=== PATIENT | male | born 1950 | race African-American/Black ===

== ENCOUNTER 2020-02-21 05:16 | Outpatient (CLI) | payer MEDICARE, OTHER ==
[2020-02-21 14:03] LABS: Hemoglobin 11.3 g/dL (14.0-18.0); Mean Corpuscular Hemoglobin 30.2 pg (27.0-31.0); Mean Corpuscular Volume 91.7 fL (78.0-98.0); Platelet Count 136 thou/uL (130-400); RBC Distribution Width 11.8 % (11.5-14.5); Red Blood Cell (RBC) Count 3.74 mill/uL (4.70-6.10); White Blood Cell (WBC) Count 7.4 thou/uL (4.8-10.8)
[2020-02-21 14:11] LABS: Anion Gap 15 mmol/L (10-20); BUN (Urea Nitrogen) 49 mg/dL (8.4-25.7); Calc. Creatinine Clearance 0 mL/min (70-130); Calcium 8.8 mg/dL (7.8-10.44); Carbon Dioxide 31 mmol/L (23-31); Chloride 95 mmol/L (98-107); Estimated GFR-MDRD 6; Glucose 134 mg/dL (80-115); Potassium 4.4 mmol/L (3.5-5.1); Sodium 137 mmol/L (136-145)
[2020-02-21 14:18] LABS: INR-International Normal Ratio 1.1; PTT 32.3 sec (22.9-36.1); Prothrombin Time 13.7 sec (12.0-14.7)
[2020-02-22 14:40] LABS: SARS-CoV-2 MS2 Positive; SARS-CoV-2 N Gene Negative; SARS-CoV-2 S Gene Negative; SARS-CoV-2 by NAA Not Detected (NotDetected); SARS-CoV-2 orf1ab Negative
== END 2020-02-21 05:17 | disposition home or self-care (01) ==
LOC: LABBT 05:16
PROVIDERS: ATTEND Urology
DX: Z01.818 Encounter for other preprocedural examination (principal); Z11.59 Encounter for screening for other viral diseases; R33.9 Retention of urine, unspecified
CPT/HCPCS: 80048; 85027; 85610; 85730; U0003; 87635; 93005; 93010

== ENCOUNTER 2020-02-25 06:06 | Day surgery (SDC) | payer MEDICARE ==
[2020-02-19 14:39] VITALS: BMI 20.6
[2020-02-25] MEDS ORDERED: Bupivacaine 0.25% HCL 30 ML VIAL ONE (08:30)
[2020-02-25] MEDS ORDERED: Fentanyl 100 MCG/2 ML VIAL ONE (08:36)
[2020-02-25] MEDS ORDERED: Phenazopyridine HCl 97.5 MG TABLET ONE (09:27)
[2020-02-25] MEDS ORDERED: Oxybutynin 5 MG TAB ONE (09:28)
[2020-02-25] MEDS ORDERED: PROPOFOL 200 MG/20 ML VIAL ONE (11:17)
[2020-02-25] MEDS ORDERED: Lidocaine 1% PF 5 ML VIAL ONE (11:17)
[2020-02-25] MEDS ORDERED: Ondansetron PF 4 MG/2 ML Vial ONE (11:17)
[2020-02-25] MEDS ORDERED: Dexamethasone 20 MG/5 ML VIAL ONE (11:17)
--- NOTE | 2020-02-25 12:04 | OP ---
DATE OF PROCEDURE: 02/25/2020 PREOPERATIVE DIAGNOSIS: Urinary retention. POSTOPERATIVE DIAGNOSIS: Urinary retention. PROCEDURES PERFORMED: Cystoscopy and placement of suprapubic tube. ANESTHESIA: General. COMPLICATIONS: None. ESTIMATED BLOOD LOSS: 10 mL. SPECIMEN: None. DESCRIPTION OF PROCEDURE: After informed consent, the patient was taken to the operating room, transferred to the table on his own power. Anesthesia was established. A time-out was performed showing the correct patient, site, and procedure. Preoperative antibiotics were administered. He was prepped and draped in the lithotomy position. I began by performing cystoscopy, noting a normal course and caliber of the urethra. The prostate was examined noting no obstruction. The bladder was then entered noting no mucosal abnormalities. A spot 2 fingerbreadths above the pubic symphysis was selected and a spinal needle used to assure proper placement from that point into the anterior aspect of the bladder. This was done with direct visualization in the bladder via cystoscopy. The intervening tissue from the bladder to the surface of the skin was anesthetized with a total of 30 mL of 0.25% Marcaine without epinephrine. A small incision was made at that site and then the scope removed. The Lowsley retractor was then passed in, and tented up against the anterior surface of the bladder with a small incision made overlying the tip of the Lowsley, allowing it to pass into the operative field. An 18-[place] catheter was connected to the Lowsley and drawn back into the bladder. 10 mL were instilled in the balloon and the Lowsley retractor removed. Cystoscopy was again performed, noting good placement of the suprapubic tube. A 4-0 chromic was used to suture the skin around the catheter. I then placed a 2-0 silk suture to hold the catheter in place. The catheter was then connected to bag drainage. The patient was awoken from anesthesia, transferred back to his hospital bed, and taken to PACU in stable condition, where he will be discharged home upon recovery. Job ID: [id number]
== END 2020-02-25 11:43 | disposition home or self-care (01) ==
LOC: SDC 06:06
PROVIDERS: ATTEND Urology
PROC: 0T9B00Z Drainage of Bladder with Drainage Device, Open Approach (ICD-10-PCS; principal; 2020-02-25)
DX: R33.9 Retention of urine, unspecified (principal); N30.20 Other chronic cystitis without hematuria; I13.11 Hypertensive heart and chronic kidney disease without heart failure, with stage 5 chronic kidney disease, or end stage renal disease; E10.22 Type 1 diabetes mellitus with diabetic chronic kidney disease; N18.6 End stage renal disease; D63.1 Anemia in chronic kidney disease; E78.00 Pure hypercholesterolemia, unspecified; E78.5 Hyperlipidemia, unspecified; K59.00 Constipation, unspecified; Z79.82 Long term (current) use of aspirin; Z79.899 Other long term (current) drug therapy; Z99.2 Dependence on renal dialysis
CPT/HCPCS: 36416; J0690; J1100; J2405; J2704; J3010; S0020

== ENCOUNTER 2020-03-16 08:13 | Emergency (ER) | payer MEDICARE ==
--- NOTE | 2020-03-16 09:14 | CT ---
CT Abdomen Pelvis WO Con History: Abdominal pain. Constipation. Comparison: None. Findings: Lung bases are clear. No pericardial effusion. Extensive cholelithiasis with gallbladder distention. Partially calcified mass superior pole right kidney measures 2.7 cm. Multiple hypodensities throughou t both kidneys. Punctate nonobstructive bilateral renal calculi measuring up to 3 mm. Hypodensity material throughout the colon with mild distention. High density debris within the cecal apex. No free intraperitoneal gas or fluid. In situ suprapubic catheter. Large Schmorl's nodes of L3. No acute osseous abnormality. Impression: 1. Extensive cholelithiasis with marked gallbladder distention. No significant pericholecystic inflam mation. 2. High density debris throughout the colon which is moderately distended with extensive stool sugges ting chronic constipation. 3. Partially calcified mass superior pole right kidney highly concerning for malignancy. Dedicated re nal protocol CT just before dialysis may be beneficial. Urologic consultation advised. 4. Nonobstructing punctate bilateral renal calculi.
[2020-03-16 09:27] LABS: #Eosinphils 0.2 thou/uL (0.0-0.7); #Lymphocytes 0.8 thou/uL (1.20-3.40); #Monocytes 0.8 thou/uL (0.11-0.59); #Neutrophils 9.6 thou/uL (1.40-6.50); %Basophils 0.1 % (0.0-1.0); %Eosinophils 1.4 % (0.0-10.0); %Monocytes 7.4 % (0.0-10.0); %Neutrophils 84.1 % (42.0-75.0); Hemoglobin 9.4 g/dL (14.0-18.0); Mean Corpuscular HGB CONC 32.2 g/dL (32.0-36.0); Mean Corpuscular Hemoglobin 30.3 pg (27.0-31.0); Mean Corpuscular Volume 93.9 fL (78.0-98.0); Mean Platelet Volume 8.8 fL (7.4-10.4); Platelet Count 155 thou/uL (130-400); RBC Distribution Width 12.5 % (11.5-14.5); Red Blood Cell (RBC) Count 3.09 mill/uL (4.70-6.10); White Blood Cell (WBC) Count 11.4 thou/uL (4.8-10.8)
[2020-03-16 09:51] LABS: ALT (SGPT) 43 U/L (8-55); AST (SGOT) 27 U/L (5-34); Albumin 3.6 g/dL (3.4-4.8); Alkaline Phosphatase 238 U/L (40-110); Anion Gap 18 mmol/L (10-20); BUN (Urea Nitrogen) 64 mg/dL (8.4-25.7); Bilirubin, Total 0.5 mg/dL (0.2-1.2); Calc. Creatinine Clearance 0 mL/min (70-130); Calcium 8.8 mg/dL (7.8-10.44); Carbon Dioxide 31 mmol/L (23-31); Chloride 91 mmol/L (98-107); Estimated GFR-MDRD 6; Globulin 4.6 g/dL (2.4-3.5); Glucose 162 mg/dL (80-115); Potassium 5.1 mmol/L (3.5-5.1); Protein, Total 8.2 g/dL (5.8-8.1); Sodium 135 mmol/L (136-145)
[2020-03-16 09:58] LABS: Bilirubin Small (Negative); Blood, Urine Large (Negative); Glucose, Urine (Dipstick) Negative (Negative); Ketone, Urine Trace mg/dL (Negative); Leukocyte Moderate (Negative); Nitrite Positive (Negative); Protein, Urine (Dipstick) > or equal to 300 mg/dL (Neg-Trace); Specific Gravity, Urine 1.015 (1.005-1.030); Urobilinogen 0.2 mg/dL (Less than 2); pH, Urine 8.5 (5.0-9.0)
[2020-03-16 10:02] LABS: Clarity Turbid (Clear)
[2020-03-16 10:19] LABS: Bacteria/HPF 4+ HPF (None Seen); RBC/HPF Greater than 50 HPF (0-3)
== END 2020-03-16 11:45 | disposition home or self-care (01) ==
LOC: ERS 08:13
DX: N30.90 Cystitis, unspecified without hematuria (principal); K59.00 Constipation, unspecified; I25.2 Old myocardial infarction; E78.2 Mixed hyperlipidemia; I12.0 Hypertensive chronic kidney disease with stage 5 chronic kidney disease or end stage renal disease; E11.22 Type 2 diabetes mellitus with diabetic chronic kidney disease; N18.6 End stage renal disease; Z79.82 Long term (current) use of aspirin; Z79.899 Other long term (current) drug therapy
CPT/HCPCS: 74176; 80053; 81003; 81015; 83605; 85025; 87077; 87086; 87186

== ENCOUNTER 2020-05-13 05:28 | Emergency (ER) | payer MEDICARE ==
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
== END 2020-05-13 06:10 | disposition home or self-care (01) ==
LOC: ERS 05:28
DX: R07.89 Other chest pain (principal); E78.2 Mixed hyperlipidemia; I12.0 Hypertensive chronic kidney disease with stage 5 chronic kidney disease or end stage renal disease; E11.22 Type 2 diabetes mellitus with diabetic chronic kidney disease; N18.6 End stage renal disease; Z79.82 Long term (current) use of aspirin; Z79.899 Other long term (current) drug therapy; Z79.4 Long term (current) use of insulin; V89.2XXA Person injured in unspecified motor-vehicle accident, traffic, initial encounter
CPT/HCPCS: 71045; 93005; 94760

== ENCOUNTER 2020-12-22 09:40 | Outpatient (CLI) | payer MEDICARE | END 2020-12-22 09:41 | disposition home or self-care (01) | LOC: BICRAD 09:40 | PROVIDERS: ATTEND Internal Medicine | DX: M25.69 Stiffness of other specified joint, not elsewhere classified (principal); M47.814 Spondylosis without myelopathy or radiculopathy, thoracic region; M47.816 Spondylosis without myelopathy or radiculopathy, lumbar region | CPT/HCPCS: 72072; 72100 ==

== ENCOUNTER 2021-01-07 10:58 | Emergency (ER) | payer MEDICARE ==
[2021-01-07 11:59] LABS: #Basophils 0.1 thou/uL (0.0-0.2); #Eosinphils 0.1 thou/uL (0.0-0.7); #Lymphocytes 1.1 thou/uL (1.20-3.40); #Neutrophils 12.7 thou/uL (1.40-6.50); %Basophils 0.7 % (0.0-1.0); %Eosinophils 0.8 % (0.0-10.0); %Lymphocytes 7.4 % (21.0-51.0); %Monocytes 6.6 % (0.0-10.0); %Neutrophils 84.5 % (42.0-75.0); Hemoglobin 11.2 g/dL (14.0-18.0); Mean Corpuscular Hemoglobin 29.7 pg (27.0-31.0); Mean Corpuscular Volume 92.9 fL (78.0-98.0); Mean Platelet Volume 8.8 fL (7.4-10.4); Platelet Count 108 thou/uL (130-400); RBC Distribution Width 13.5 % (11.5-14.5); Red Blood Cell (RBC) Count 3.77 mill/uL (4.70-6.10)
[2021-01-07 12:15] LABS: ALT (SGPT) 26 U/L (8-55); AST (SGOT) 20 U/L (5-34); Albumin 3.4 g/dL (3.4-4.8); Alkaline Phosphatase 181 U/L (40-110); Anion Gap 16 mmol/L (10-20); BUN (Urea Nitrogen) 31 mg/dL (8.4-25.7); Bilirubin, Total 0.6 mg/dL (0.2-1.2); Calc. Creatinine Clearance 0 mL/min (70-130); Calcium 9.6 mg/dL (7.8-10.44); Carbon Dioxide 27 mmol/L (23-31); Chloride 95 mmol/L (98-107); Globulin 4.2 g/dL (2.4-3.5); Glucose 135 mg/dL (80-115); Lipase 10 U/L (8-78); Potassium 4.1 mmol/L (3.5-5.1); Protein, Total 7.6 g/dL (5.8-8.1); Sodium 134 mmol/L (136-145)
[2021-01-07 12:38] LABS: CKMB 1.4 ng/mL (0-6.6)
== END 2021-01-07 17:18 | disposition short-term general hospital (02) ==
LOC: ERS 10:58
DX: R53.1 Weakness (principal); R79.89 Other specified abnormal findings of blood chemistry; I25.2 Old myocardial infarction; E11.9 Type 2 diabetes mellitus without complications; E78.5 Hyperlipidemia, unspecified; I12.0 Hypertensive chronic kidney disease with stage 5 chronic kidney disease or end stage renal disease; N18.6 End stage renal disease; Z79.82 Long term (current) use of aspirin; Z79.899 Other long term (current) drug therapy; Z79.4 Long term (current) use of insulin
CPT/HCPCS: 36415; 71045; 80053; 82553; 83690; 83880; 84484; 85025; 93005

== ENCOUNTER 2021-07-07 11:19 | Inpatient (IN) | payer MEDICARE ==
[2021-07-07 12:01] LABS: Hemoglobin 8.7 g/dL (14.0-18.0); Mean Corpuscular Volume 90.7 fL (78.0-98.0); Mean Platelet Volume 8.2 fL (7.4-10.4); Platelet Count 270 thou/uL (130-400); RBC Distribution Width 13.5 % (11.5-14.5); White Blood Cell (WBC) Count 12.5 thou/uL (4.8-10.8)
[2021-07-07 12:08] LABS: INR-International Normal Ratio 1.2; PTT 34.7 sec (22.9-36.1); Prothrombin Time 15.3 sec (12.0-14.7)
[2021-07-07 12:18] LABS: ALT (SGPT) 61 U/L (8-55); AST (SGOT) 72 U/L (5-34); Albumin 2.5 g/dL (3.4-4.8); Alkaline Phosphatase 688 U/L (40-110); Anion Gap 19 mmol/L (10-20); BUN (Urea Nitrogen) 64 mg/dL (8.4-25.7); Calc. Creatinine Clearance 0 mL/min (70-130); Calcium 11.2 mg/dL (7.8-10.44); Carbon Dioxide 26 mmol/L (23-31); Chloride 93 mmol/L (98-107); Globulin 6.1 g/dL (2.4-3.5); Glucose 207 mg/dL (80-115); Magnesium 2.1 mg/dL (1.6-2.6); Protein, Total 8.6 g/dL (5.8-8.1); Sodium 133 mmol/L (136-145)
[2021-07-07 12:37] LABS: Band 13 % (5-11); Lymphocytes 2 % (21-51); MDiff Complete? YES; Monocytes 1 % (0-10); Neutrophil 83 % (42-75); Platelet Morphology Comment Appears Adequate; RBC Morphology Normal
[2021-07-07 12:41] LABS: CKMB 0.8 ng/mL (0-6.6)
[2021-07-07] MEDS ORDERED: Acetaminophen 325 MG Suppository ONE (12:44)
[2021-07-07] MEDS ORDERED: Acetaminophen 120 MG Suppository ONE (12:44)
[2021-07-07] MEDS ORDERED: Vancomycin 1 GM/200 ML BAG ONE (12:50)
[2021-07-07] MEDS ORDERED: Meropenem 1 GM in Sodium Chloride 0.9% 100 ML IVPB SCH ×2 (13:00→22:00)
[2021-07-07 13:28] LABS: Clarity Turbid (Clear)
[2021-07-07 13:29] LABS: Bilirubin Negative (Negative); Blood, Urine Large (Negative); Glucose, Urine (Dipstick) Negative (Negative); Ketone, Urine Negative (Negative); Leukocyte Moderate (Negative); Nitrite Negative (Negative); Protein, Urine (Dipstick) 300 mg/dL (Neg-Trace); Urobilinogen 0.2 mg/dL (Less than 2)
[2021-07-07 13:30] LABS: Bacteria/HPF 4+ HPF (None Seen); Squamous Epithelial 0-3 HPF (0-3); WBC/HPF 21-50 HPF (0-3)
[2021-07-07 14:03] LABS: SARS-CoV-2 NAA Rapid Test Not Detected (NotDetected)
[2021-07-07] MEDS ORDERED: MERREM IVPB PRN (14:32)
[2021-07-07] MEDS ORDERED: Dextrose 50% Abboject 50 ML SYRINGE SLOW IVP PRN (14:40)
[2021-07-07] MEDS ORDERED: Dextrose 5% in Water 1,000 ML IV PRN (14:40)
[2021-07-07] MEDS ORDERED: Aspirin 300 MG Suppository ONE (14:41)
[2021-07-07] MEDS ORDERED: Acetaminophen 325 MG TAB PO PRN (14:41)
[2021-07-07] MEDS ORDERED: Acetaminophen 650 MG Suppository PR PRN (14:41)
[2021-07-07] MEDS ORDERED: Ondansetron ODT 4 MG TAB PO PRN (14:41)
[2021-07-07] MEDS ORDERED: Ondansetron PF 4 MG/2 ML Vial IVP PRN (14:41)
[2021-07-07 14:49] LABS: HBSAg Index 0.22 S/CO (0-0.99); Hep B Surf Ag Non-Reactive S/CO (NonReactive)
[2021-07-07 14:52] LABS: Lactic Acid 1.8 mmol/L (0.5-2.2)
[2021-07-07] MEDS ORDERED: Heparin 5,000 UNITS/ML VIAL SC SCH (15:00)
[2021-07-07 15:03] LABS: HBSAB Concentration 19.62 mIU/mL; Hep B Surf AB Reactive (NonReactive)
[2021-07-07] MEDS ORDERED: Vancomycin HCl 500 MG in Sodium Chloride 0.9% 100 ML IVPB SCH ×2 (16:30)
[2021-07-07] MEDS ORDERED: Vancomycin HCl 1.25 GM in Sodium Chloride 0.9% 250 ML 250 ML IVPB SCH (16:30)
[2021-07-07] MEDS ORDERED: HOLD VANCOMYCIN FOR LEVEL >20 FS SCH (16:30)
[2021-07-07] MEDS ORDERED: Vancomycin 1 GM in Premix Bag 1 BAG IVPB SCH ×2 (16:30→21:00)
[2021-07-07] MEDS ORDERED: Vancomycin HCl 750 MG in Sodium Chloride 0.9% 250 ML 250 ML IVPB SCH (16:30)
[2021-07-07 16:44] LABS: Troponin I 0.104 ng/mL (< 0.028)
[2021-07-07 16:45] LABS: Acetaminophen Less than 6.0 mcg/mL (10.0-30.0); Alcohol Less than 10 mg/dL (Less than 10); Lipase 34 U/L (8-78); Salicylate Less than 8.0 mg/dL (15.0-30.0)
[2021-07-07] MEDS ORDERED: FLU VACC QS2021-22(65YR UP)/PF 240 MCG/0.7 ML SYRINGE IM ONE (16:45)
[2021-07-07 17:19] LABS: Actual Bicarbonate (HCO3a) 30.3 mEq/L (22-28); Base Excess (BEa) 6.7 mEq/L (-2.0 to +3.0); CO2 Tension 39.5 mmHg (35.0-45.0); Calcium, Ionized (arterial) 1.23 mmol/L (1.12-1.30); Carboxyhemoglobin (COHb) 0.7 gm% (0.0-3.0); Hemoglobin (Hb) 8.9 g/dL (14.0-18.0); Potassium - ABG Lab 3.08 mmol/L (3.70-5.30)
[2021-07-07 17:25] LABS: ALV-art Gradient 92.065 mmHg (0-20); O2 Tension (PaO2), arterial 58.2 mmHg (> 70.0); Puncture Site RRA
[2021-07-07 19:40] LABS: Troponin I 0.109 ng/mL (< 0.028)
[2021-07-07] MEDS: Famotidine/PF 20 mg/2ml Vial SLOW IVP SCH (21:22)
[2021-07-07] MEDS: Famotidine 20 MG TAB PO SCH (21:22)
[2021-07-07] MEDS: Heparin 5,000 UNITS/ML VIAL SC SCH (21:22)
[2021-07-07 22:30] LABS: Troponin I 0.116 ng/mL (< 0.028)
[2021-07-07 23:26] LABS: Actual Bicarbonate (HCO3a) 30.2 mEq/L (22-28); Base Excess (BEa) 5.8 mEq/L (-2.0 to +3.0); CO2 Tension 43.8 mmHg (35.0-45.0); Calcium, Ionized (arterial) 1.21 mmol/L (1.12-1.30); Carboxyhemoglobin (COHb) 0.3 gm% (0.0-3.0); Hemoglobin (Hb) 8.1 g/dL (14.0-18.0); Potassium - ABG Lab 4.39 mmol/L (3.70-5.30); pH, Arterial 7.46 (7.35-7.45)
[2021-07-07 23:30] LABS: O2 Tension (PaO2), arterial 36.3 mmHg (> 70.0); Puncture Site RB
[2021-07-07 23:36] LABS: Actual Bicarbonate (HCO3a) 28.6 mEq/L (22-28); Base Excess (BEa) 5.9 mEq/L (-2.0 to +3.0); CO2 Tension 33.7 mmHg (35.0-45.0); Calcium, Ionized (arterial) 1.22 mmol/L (1.12-1.30); Carboxyhemoglobin (COHb) 0.4 gm% (0.0-3.0); Hemoglobin (Hb) 8.2 g/dL (14.0-18.0); O2 Tension (PaO2), arterial 217.9 mmHg (> 70.0); Potassium - ABG Lab 4.29 mmol/L (3.70-5.30); pH, Arterial 7.55 (7.35-7.45)
[2021-07-07 23:37] LABS: ALV-art Gradient 96.475 mmHg (0-20); Puncture Site RRA
[2021-07-08 05:03] LABS: Hemoglobin 7.9 g/dL (14.0-18.0); Mean Corpuscular HGB CONC 31.9 g/dL (32.0-36.0); Mean Corpuscular Hemoglobin 28.7 pg (27.0-31.0); Mean Corpuscular Volume 89.9 fL (78.0-98.0); Platelet Count 271 thou/uL (130-400); RBC Distribution Width 13.6 % (11.5-14.5); Red Blood Cell (RBC) Count 2.74 mill/uL (4.70-6.10); White Blood Cell (WBC) Count 40.1 thou/uL (4.8-10.8)
[2021-07-08 05:19] LABS: ALT (SGPT) 54 U/L (8-55); AST (SGOT) 79 U/L (5-34); Albumin 2.3 g/dL (3.4-4.8); Alkaline Phosphatase 556 U/L (40-110); Anion Gap 17 mmol/L (10-20); BUN (Urea Nitrogen) 34 mg/dL (8.4-25.7); Bilirubin, Total 0.8 mg/dL (0.2-1.2); Calc. Creatinine Clearance 14 mL/min (70-130); Calcium 10.1 mg/dL (7.8-10.44); Carbon Dioxide 27 mmol/L (23-31); Chloride 95 mmol/L (98-107); Globulin 5.4 g/dL (2.4-3.5); Glucose 273 mg/dL (80-115); Potassium 4.6 mmol/L (3.5-5.1); Protein, Total 7.7 g/dL (5.8-8.1); Sodium 134 mmol/L (136-145)
[2021-07-08 05:20] LABS: Band 21 % (5-11); Lymphocytes 4 % (21-51); MDiff Complete? YES; Monocytes 3 % (0-10); Neutrophil 72 % (42-75); Platelet Morphology Comment Appears Adequate; RBC Morphology Normal
[2021-07-08 07:42] LABS: Vancomycin, Random 16.3 ug/mL (See Comment)
[2021-07-08 09:24] VITALS: BMI 22.6
[2021-07-08] MEDS: Heparin 5,000 UNITS/ML VIAL SC SCH ×3 (09:42→21:22)
[2021-07-08] MEDS: Famotidine/PF 20 mg/2ml Vial SLOW IVP SCH (09:43)
[2021-07-08] MEDS: Aspirin 81 mg Enteric Coated Tablet PO SCH (09:43)
[2021-07-08] MEDS: Famotidine 20 MG TAB PO SCH ×2 (09:43→21:21)
[2021-07-08] MEDS: HumaLOG 300 UNITS/3 ML VIAL SC PRN ×3 (11:59→21:23)
[2021-07-08] MEDS: Meropenem 500 MG in Sodium Chloride 0.9% 100 ML IVPB SCH (14:45)
[2021-07-08] MEDS ORDERED: Enoxaparin Sodium 100 MG/ML SYRINGE SC SCH (17:06)
[2021-07-08] MEDS: Carvedilol 6.25 MG TAB PO SCH (17:51)
[2021-07-08] MEDS ORDERED: Famotidine/PF 20 mg/2ml Vial SLOW IVP SCH (21:00)
[2021-07-09] MEDS: Carvedilol 6.25 MG TAB PO SCH ×2 (10:46→16:10)
[2021-07-09] MEDS: Aspirin 81 mg Enteric Coated Tablet PO SCH (10:47)
[2021-07-09] MEDS: Clopidogrel Bisulfate 75 MG TAB PO SCH (10:48)
[2021-07-09] MEDS: Heparin 5,000 UNITS/ML VIAL SC SCH ×2 (10:48→14:37)
[2021-07-09] MEDS ORDERED: Fentanyl 250 MCG/5 ML VIAL ONE (11:49)
[2021-07-09] MEDS ORDERED: Bupivacaine PF 0.5% 30 ML VIAL ONE (11:52)
[2021-07-09] MEDS ORDERED: PROPOFOL 200 MG/20 ML VIAL ONE (12:13)
[2021-07-09] MEDS ORDERED: Phenylephrine 10 MG/ML VIAL ONE (12:13)
[2021-07-09] MEDS ORDERED: Promethazine HCl 25 MG/ML VIAL IVPB PRN (12:49)
[2021-07-09] MEDS ORDERED: Ondansetron HCl/PF 4 MG/2 ML Vial IVP PRN (12:49)
[2021-07-09] MEDS ORDERED: Promethazine HCl 25 MG/ML VIAL IM PRN (12:49)
[2021-07-09] MEDS: Meropenem 500 MG in Sodium Chloride 0.9% 100 ML IVPB SCH (14:32)
[2021-07-09] MEDS ORDERED: traMADol HCl 50 MG TAB PO PRN (14:42)
[2021-07-09] MEDS ORDERED: Morphine 4 MG/ML VIAL SLOW IVP PRN (14:57)
[2021-07-09] MEDS: Morphine 4 MG/ML VIAL SLOW IVP PRN ×2 (15:07→18:28)
[2021-07-09 15:44] LABS: Anion Gap 14 mmol/L (10-20); BUN (Urea Nitrogen) 71 mg/dL (8.4-25.7); Calc. Creatinine Clearance 10 mL/min (70-130); Carbon Dioxide 28 mmol/L (23-31); Chloride 96 mmol/L (98-107); Potassium 4.6 mmol/L (3.5-5.1); Sodium 133 mmol/L (136-145)
[2021-07-09 15:45] LABS: Calcium 9.7 mg/dL (7.8-10.44); Glucose 319 mg/dL (80-115)
[2021-07-09] MEDS: HYDROcodone/Acetaminophen 5/325 mg Tablet PO PRN (16:09)
[2021-07-09] MEDS: HumaLOG 300 UNITS/3 ML VIAL SC PRN (16:38)
[2021-07-10] MEDS: Famotidine 20 MG TAB PO SCH ×2 (00:03→21:16)
[2021-07-10] MEDS: Heparin 5,000 UNITS/ML VIAL SC SCH ×4 (00:03→21:16)
[2021-07-10] MEDS: HumaLOG 300 UNITS/3 ML VIAL SC PRN ×3 (00:05→16:12)
[2021-07-10 04:24] LABS: Hemoglobin 7.9 g/dL (14.0-18.0); Mean Corpuscular HGB CONC 31.3 g/dL (32.0-36.0); Mean Corpuscular Hemoglobin 28.2 pg (27.0-31.0); Mean Corpuscular Volume 90.2 fL (78.0-98.0); Mean Platelet Volume 8.5 fL (7.4-10.4); Platelet Count 310 thou/uL (130-400); RBC Distribution Width 13.7 % (11.5-14.5); Red Blood Cell (RBC) Count 2.79 mill/uL (4.70-6.10); White Blood Cell (WBC) Count 24.7 thou/uL (4.8-10.8)
[2021-07-10 04:26] LABS: ALT (SGPT) 41 U/L (8-55); AST (SGOT) 51 U/L (5-34); Albumin 2.1 g/dL (3.4-4.8); Alkaline Phosphatase 473 U/L (40-110); Anion Gap 13 mmol/L (10-20); BUN (Urea Nitrogen) 32 mg/dL (8.4-25.7); Bilirubin, Total 0.7 mg/dL (0.2-1.2); Calc. Creatinine Clearance 16 mL/min (70-130); Calcium 9.5 mg/dL (7.8-10.44); Carbon Dioxide 29 mmol/L (23-31); Chloride 97 mmol/L (98-107); Globulin 5.2 g/dL (2.4-3.5); Glucose 189 mg/dL (80-115); Potassium 4.1 mmol/L (3.5-5.1); Protein, Total 7.3 g/dL (5.8-8.1); Sodium 135 mmol/L (136-145)
[2021-07-10 05:10] LABS: Band 7 % (5-11); Lymphocytes 2 % (21-51); MDiff Complete? YES; Neutrophil 91 % (42-75)
[2021-07-10] MEDS: Polyethylene Glycol 3350 17 GM Packet PO SCH (08:47)
[2021-07-10] MEDS: Clopidogrel Bisulfate 75 MG TAB PO SCH (08:48)
[2021-07-10] MEDS: Sevelamer Carbonate 800 MG TAB PO SCH ×3 (08:48→16:12)
[2021-07-10] MEDS: HYDROcodone/Acetaminophen 5/325 mg Tablet PO PRN (08:48)
[2021-07-10] MEDS: Aspirin 81 mg Enteric Coated Tablet PO SCH (08:48)
[2021-07-10] MEDS: Saccharomyces boulardii 250 MG CAP PO SCH (08:48)
[2021-07-10] MEDS: Carvedilol 3.125 MG TAB PO SCH ×2 (08:48→16:12)
[2021-07-10] MEDS ORDERED: Dorzolamide HCl 2% Ophth Soln 10 ml Bottle EA EYE SCH (09:00)
[2021-07-10] MEDS ORDERED: Timolol 0.5% Ophth Soln 5 ml Bottle EA EYE SCH (09:00)
[2021-07-10] MEDS ORDERED: DorzolamidE/Timolol 2%/0.5% Ophth Soln 10 ml Bottle EA EYE SCH (10:45)
[2021-07-10] MEDS: EPOETIN ALFA-EPBX (ESRD) 4,000 UNIT/ML VIAL SC SCH (13:16)
[2021-07-10] MEDS: cefTRIAXone\\ROCEPHIN 2 GM in Sodium Chloride 0.9% 100 ML IVPB SCH (13:25)
[2021-07-10] MEDS: DorzolamidE/Timolol 2%/0.5% Ophth Soln 10 ml Bottle EA EYE SCH (21:15)
[2021-07-10] MEDS: Atorvastatin Calcium 20 MG TAB PO SCH (21:16)
[2021-07-11 03:36] LABS: #Basophils 0.1 thou/uL (0.0-0.2); #Eosinphils 0.2 thou/uL (0.0-0.7); #Lymphocytes 1.3 thou/uL (1.20-3.40); #Monocytes 0.8 thou/uL (0.11-0.59); #Neutrophils 15.1 thou/uL (1.40-6.50); %Basophils 0.4 % (0.0-1.0); %Eosinophils 1.3 % (0.0-10.0); %Lymphocytes 7.1 % (21.0-51.0); %Monocytes 4.7 % (0.0-10.0); %Neutrophils 86.5 % (42.0-75.0); Hemoglobin 7.9 g/dL (14.0-18.0); Mean Corpuscular HGB CONC 31.5 g/dL (32.0-36.0); Mean Corpuscular Hemoglobin 28.4 pg (27.0-31.0); Mean Corpuscular Volume 90.2 fL (78.0-98.0); Mean Platelet Volume 8.1 fL (7.4-10.4); Platelet Count 325 thou/uL (130-400); RBC Distribution Width 13.8 % (11.5-14.5); Red Blood Cell (RBC) Count 2.79 mill/uL (4.70-6.10); White Blood Cell (WBC) Count 17.5 thou/uL (4.8-10.8)
[2021-07-11 03:55] LABS: ALT (SGPT) 39 U/L (8-55); AST (SGOT) 63 U/L (5-34); Albumin 2.2 g/dL (3.4-4.8); Alkaline Phosphatase 504 U/L (40-110); Anion Gap 15 mmol/L (10-20); BUN (Urea Nitrogen) 47 mg/dL (8.4-25.7); Bilirubin, Total 0.7 mg/dL (0.2-1.2); Calc. Creatinine Clearance 11 mL/min (70-130); Calcium 10.1 mg/dL (7.8-10.44); Carbon Dioxide 27 mmol/L (23-31); Chloride 96 mmol/L (98-107); Globulin 5.3 g/dL (2.4-3.5); Glucose 200 mg/dL (80-115); Potassium 4.8 mmol/L (3.5-5.1); Protein, Total 7.5 g/dL (5.8-8.1); Sodium 133 mmol/L (136-145)
[2021-07-11] MEDS: Sevelamer Carbonate 800 MG TAB PO SCH ×3 (08:34→17:32)
[2021-07-11] MEDS: Carvedilol 3.125 MG TAB PO SCH ×2 (08:34→17:32)
[2021-07-11] MEDS: Heparin 5,000 UNITS/ML VIAL SC SCH ×3 (08:34→22:05)
[2021-07-11] MEDS: Saccharomyces boulardii 250 MG CAP PO SCH (08:34)
[2021-07-11] MEDS: Polyethylene Glycol 3350 17 GM Packet PO SCH (08:34)
[2021-07-11] MEDS: Clopidogrel Bisulfate 75 MG TAB PO SCH (08:34)
[2021-07-11] MEDS: Aspirin 81 mg Enteric Coated Tablet PO SCH (08:34)
[2021-07-11] MEDS: DorzolamidE/Timolol 2%/0.5% Ophth Soln 10 ml Bottle EA EYE SCH ×2 (08:35→22:05)
[2021-07-11] MEDS: cefTRIAXone\\ROCEPHIN 2 GM in Sodium Chloride 0.9% 100 ML IVPB SCH (14:35)
[2021-07-11] MEDS: Atorvastatin Calcium 20 MG TAB PO SCH (22:06)
[2021-07-11] MEDS: Famotidine 20 MG TAB PO SCH (22:06)
[2021-07-12] MEDS: HumaLOG 300 UNITS/3 ML VIAL SC PRN (07:08)
[2021-07-12] MEDS: Sevelamer Carbonate 800 MG TAB PO SCH ×3 (07:47→18:06)
[2021-07-12] MEDS: Carvedilol 3.125 MG TAB PO SCH ×2 (08:18→18:06)
[2021-07-12] MEDS: Aspirin 81 mg Enteric Coated Tablet PO SCH (13:24)
[2021-07-12] MEDS: Saccharomyces boulardii 250 MG CAP PO SCH (13:25)
[2021-07-12] MEDS: DorzolamidE/Timolol 2%/0.5% Ophth Soln 10 ml Bottle EA EYE SCH ×2 (13:26→21:21)
[2021-07-12] MEDS: Clopidogrel Bisulfate 75 MG TAB PO SCH (13:26)
[2021-07-12] MEDS: Heparin 5,000 UNITS/ML VIAL SC SCH ×3 (13:27→21:15)
[2021-07-12] MEDS: Polyethylene Glycol 3350 17 GM Packet PO SCH (13:28)
[2021-07-12] MEDS: cefTRIAXone\\ROCEPHIN 2 GM in Sodium Chloride 0.9% 100 ML IVPB SCH (13:59)
[2021-07-12] MEDS: Atorvastatin Calcium 20 MG TAB PO SCH (21:15)
[2021-07-12] MEDS: Famotidine 20 MG TAB PO SCH (21:15)
[2021-07-13 05:39] LABS: Hemoglobin 8.2 g/dL (14.0-18.0); Mean Corpuscular HGB CONC 31.9 g/dL (32.0-36.0); Mean Corpuscular Hemoglobin 28.4 pg (27.0-31.0); Mean Corpuscular Volume 89.2 fL (78.0-98.0); Mean Platelet Volume 7.7 fL (7.4-10.4); Platelet Count 393 thou/uL (130-400); RBC Distribution Width 14.6 % (11.5-14.5)
[2021-07-13 05:49] LABS: Anion Gap 19 mmol/L (10-20); BUN (Urea Nitrogen) 39 mg/dL (8.4-25.7); Calc. Creatinine Clearance 12 mL/min (70-130); Calcium 10.2 mg/dL (7.8-10.44); Carbon Dioxide 24 mmol/L (23-31); Chloride 93 mmol/L (98-107); Glucose 152 mg/dL (80-115); Potassium 4.3 mmol/L (3.5-5.1); Sodium 132 mmol/L (136-145)
[2021-07-13 08:21] LABS: Band 1 % (5-11); Eosinophils 1 % (0-10); Hypochromia SLIGHT = 6-15 cells (100X) (0-5/hpf); Lymphocytes 9 % (21-51); MDiff Complete? YES; Monocytes 9 % (0-10); Neutrophil 80 % (42-75); Platelet Morphology Comment Appears Adequate; Polychromasia SLIGHT = 2-3 cells (100X) (0-2/hpf); Rouleaux Formation SLIGHT = 1-5 cells (100X) (None Seen)
[2021-07-13] MEDS: Sevelamer Carbonate 800 MG TAB PO SCH ×3 (09:59→20:33)
[2021-07-13] MEDS: Polyethylene Glycol 3350 17 GM Packet PO SCH (09:59)
[2021-07-13] MEDS: Heparin 5,000 UNITS/ML VIAL SC SCH ×3 (10:08→21:05)
[2021-07-13] MEDS: Aspirin 81 mg Enteric Coated Tablet PO SCH (10:09)
[2021-07-13] MEDS: DorzolamidE/Timolol 2%/0.5% Ophth Soln 10 ml Bottle EA EYE SCH ×2 (10:09→21:09)
[2021-07-13] MEDS: Clopidogrel Bisulfate 75 MG TAB PO SCH (10:10)
[2021-07-13] MEDS: Saccharomyces boulardii 250 MG CAP PO SCH (10:10)
[2021-07-13] MEDS: Carvedilol 3.125 MG TAB PO SCH (10:10)
[2021-07-13] MEDS: cefTRIAXone\\ROCEPHIN 2 GM in Sodium Chloride 0.9% 100 ML IVPB SCH (14:36)
[2021-07-13] MEDS: Atorvastatin Calcium 20 MG TAB PO SCH (21:05)
[2021-07-13] MEDS: Famotidine 20 MG TAB PO SCH (21:05)
[2021-07-13 22:01] LABS: Glucose 228 mg/dL (80-115)
[2021-07-14 07:58] LABS: Glucose 216 mg/dL (80-115)
[2021-07-14 11:47] LABS: Glucose 135 mg/dL (80-115)
[2021-07-14] MEDS: Aspirin 81 mg Enteric Coated Tablet PO SCH (13:13)
[2021-07-14] MEDS: Polyethylene Glycol 3350 17 GM Packet PO SCH (13:13)
[2021-07-14] MEDS: Clopidogrel Bisulfate 75 MG TAB PO SCH (13:14)
[2021-07-14] MEDS: Sevelamer Carbonate 800 MG TAB PO SCH ×3 (13:14→18:17)
[2021-07-14] MEDS: Carvedilol 3.125 MG TAB PO SCH ×2 (13:14→17:05)
[2021-07-14] MEDS: Saccharomyces boulardii 250 MG CAP PO SCH (13:14)
[2021-07-14] MEDS: Heparin 5,000 UNITS/ML VIAL SC SCH ×3 (13:15→20:47)
[2021-07-14] MEDS: cefTRIAXone\\ROCEPHIN 2 GM in Sodium Chloride 0.9% 100 ML IVPB SCH (16:31)
[2021-07-14] MEDS: DorzolamidE/Timolol 2%/0.5% Ophth Soln 10 ml Bottle EA EYE SCH ×2 (16:31→20:51)
[2021-07-14] MEDS: Atorvastatin Calcium 20 MG TAB PO SCH (20:46)
[2021-07-14] MEDS: Famotidine 20 MG TAB PO SCH (20:47)
[2021-07-15 05:21] LABS: #Basophils 0.1 thou/uL (0.0-0.2); #Eosinphils 0.2 thou/uL (0.0-0.7); #Lymphocytes 1.3 thou/uL (1.20-3.40); #Neutrophils 7.8 thou/uL (1.40-6.50); %Basophils 0.5 % (0.0-1.0); %Eosinophils 1.9 % (0.0-10.0); %Lymphocytes 12.5 % (21.0-51.0); %Neutrophils 75.1 % (42.0-75.0); Hemoglobin 8.4 g/dL (14.0-18.0); Mean Corpuscular HGB CONC 32.5 g/dL (32.0-36.0); Mean Corpuscular Volume 89.4 fL (78.0-98.0); Mean Platelet Volume 7.5 fL (7.4-10.4); Platelet Count 379 thou/uL (130-400); RBC Distribution Width 14.8 % (11.5-14.5); Red Blood Cell (RBC) Count 2.89 mill/uL (4.70-6.10); White Blood Cell (WBC) Count 10.4 thou/uL (4.8-10.8)
[2021-07-15 05:44] LABS: Anion Gap 15 mmol/L (10-20); BUN (Urea Nitrogen) 32 mg/dL (8.4-25.7); Calc. Creatinine Clearance 13 mL/min (70-130); Calcium 9.8 mg/dL (7.8-10.44); Carbon Dioxide 29 mmol/L (23-31); Chloride 95 mmol/L (98-107); Glucose 170 mg/dL (80-115); Potassium 4.1 mmol/L (3.5-5.1); Sodium 135 mmol/L (136-145)
[2021-07-15 07:53] LABS: Glucose 217 mg/dL (80-115)
[2021-07-15] MEDS: Polyethylene Glycol 3350 17 GM Packet PO SCH (09:56)
[2021-07-15] MEDS: Aspirin 81 mg Enteric Coated Tablet PO SCH (09:56)
[2021-07-15] MEDS: DorzolamidE/Timolol 2%/0.5% Ophth Soln 10 ml Bottle EA EYE SCH ×2 (09:56→21:19)
[2021-07-15] MEDS: Clopidogrel Bisulfate 75 MG TAB PO SCH (09:56)
[2021-07-15] MEDS: Carvedilol 3.125 MG TAB PO SCH ×2 (09:57→17:59)
[2021-07-15] MEDS: Acetaminophen 500 MG TAB PO PRN ×2 (09:57→21:19)
[2021-07-15] MEDS: Saccharomyces boulardii 250 MG CAP PO SCH (09:57)
[2021-07-15] MEDS: hydrALAZINE 20 MG/ML VIAL SLOW IVP PRN (09:58)
[2021-07-15] MEDS: Heparin 5,000 UNITS/ML VIAL SC SCH ×3 (09:58→21:19)
[2021-07-15 12:05] LABS: Glucose 336 mg/dL (80-115)
[2021-07-15] MEDS: HumaLOG 300 UNITS/3 ML VIAL SC PRN ×3 (12:31→21:20)
[2021-07-15 13:27] LABS: SARS-CoV-2 PCR by NAA Not Detected (NotDetected)
[2021-07-15] MEDS: cefTRIAXone\\ROCEPHIN 2 GM in Sodium Chloride 0.9% 100 ML IVPB SCH (14:30)
[2021-07-15 17:44] LABS: Glucose 306 mg/dL (80-115)
[2021-07-15] MEDS ORDERED: Metoclopramide HCl 10 MG/2 ML VIAL IVP SCH (18:30)
[2021-07-15] MEDS: Atorvastatin Calcium 20 MG TAB PO SCH (21:20)
[2021-07-15] MEDS: Famotidine 20 MG TAB PO SCH (21:20)
[2021-07-16] MEDS: HumaLOG 300 UNITS/3 ML VIAL SC PRN (06:22)
[2021-07-16 07:35] LABS: Glucose 257 mg/dL (80-115)
[2021-07-16 07:37] LABS: #Eosinphils 0.2 thou/uL (0.0-0.7); #Lymphocytes 1.5 thou/uL (1.20-3.40); #Monocytes 0.9 thou/uL (0.11-0.59); #Neutrophils 11.8 thou/uL (1.40-6.50); %Basophils 0.3 % (0.0-1.0); %Eosinophils 1.1 % (0.0-10.0); %Lymphocytes 10.4 % (21.0-51.0); %Monocytes 6.1 % (0.0-10.0); %Neutrophils 82.2 % (42.0-75.0); Hemoglobin 8.2 g/dL (14.0-18.0); Mean Corpuscular HGB CONC 31.6 g/dL (32.0-36.0); Mean Corpuscular Hemoglobin 28.8 pg (27.0-31.0); Mean Corpuscular Volume 90.9 fL (78.0-98.0); Mean Platelet Volume 7.6 fL (7.4-10.4); Platelet Count 369 thou/uL (130-400); RBC Distribution Width 14.7 % (11.5-14.5); Red Blood Cell (RBC) Count 2.86 mill/uL (4.70-6.10); White Blood Cell (WBC) Count 14.4 thou/uL (4.8-10.8)
[2021-07-16 07:38] LABS: Anion Gap 16 mmol/L (10-20); BUN (Urea Nitrogen) 46 mg/dL (8.4-25.7); Calc. Creatinine Clearance 10 mL/min (70-130); Calcium 10.4 mg/dL (7.8-10.44); Carbon Dioxide 26 mmol/L (23-31); Chloride 92 mmol/L (98-107); Glucose 261 mg/dL (80-115); Potassium 3.6 mmol/L (3.5-5.1); Sodium 130 mmol/L (136-145)
[2021-07-16] MEDS: Carvedilol 3.125 MG TAB PO SCH ×2 (08:00→17:00)
[2021-07-16] MEDS: Clopidogrel Bisulfate 75 MG TAB PO SCH (09:00)
[2021-07-16] MEDS: Heparin 5,000 UNITS/ML VIAL SC SCH ×3 (09:00→20:32)
[2021-07-16] MEDS: Saccharomyces boulardii 250 MG CAP PO SCH (09:00)
[2021-07-16] MEDS: Polyethylene Glycol 3350 17 GM Packet PO SCH (09:00)
[2021-07-16] MEDS: DorzolamidE/Timolol 2%/0.5% Ophth Soln 10 ml Bottle EA EYE SCH ×2 (09:00→20:32)
[2021-07-16] MEDS: Aspirin 81 mg Enteric Coated Tablet PO SCH (09:00)
[2021-07-16] MEDS ORDERED: Ketamine 50 MG/ML (10ML VIAL) ONE (11:10)
[2021-07-16] MEDS ORDERED: Dexmedetomidine 200 MCG/2 ML VIAL ONE (11:10)
[2021-07-16] MEDS ORDERED: PROPOFOL 200 MG/20 ML VIAL ONE (11:33)
[2021-07-16] MEDS ORDERED: Promethazine HCl 25 MG/ML VIAL IM PRN (11:42)
[2021-07-16] MEDS ORDERED: Promethazine HCl 25 MG/ML VIAL IVPB PRN (11:42)
[2021-07-16] MEDS ORDERED: Ondansetron HCl/PF 4 MG/2 ML Vial IVP PRN (11:42)
[2021-07-16 14:35] LABS: Glucose 187 mg/dL (80-115)
[2021-07-16 17:51] LABS: Glucose 114 mg/dL (80-115)
[2021-07-16] MEDS: cefTRIAXone\\ROCEPHIN 2 GM in Sodium Chloride 0.9% 100 ML IVPB SCH (18:07)
[2021-07-16] MEDS: Atorvastatin Calcium 20 MG TAB PO SCH (20:32)
[2021-07-16] MEDS: Famotidine 20 MG TAB PO SCH (20:32)
[2021-07-17] MEDS: hydrALAZINE 20 MG/ML VIAL SLOW IVP PRN (05:14)
[2021-07-17] MEDS: HumaLOG 300 UNITS/3 ML VIAL SC PRN ×3 (06:08→17:57)
[2021-07-17 06:09] LABS: #Eosinphils 0.1 thou/uL (0.0-0.7); #Lymphocytes 1.2 thou/uL (1.20-3.40); #Monocytes 0.7 thou/uL (0.11-0.59); #Neutrophils 10.7 thou/uL (1.40-6.50); %Basophils 0.3 % (0.0-1.0); %Eosinophils 0.7 % (0.0-10.0); %Lymphocytes 9.3 % (21.0-51.0); %Monocytes 5.2 % (0.0-10.0); %Neutrophils 84.5 % (42.0-75.0); Hemoglobin 7.8 g/dL (14.0-18.0); Mean Corpuscular HGB CONC 32.7 g/dL (32.0-36.0); Mean Corpuscular Hemoglobin 29.2 pg (27.0-31.0); Mean Corpuscular Volume 89.1 fL (78.0-98.0); Mean Platelet Volume 7.2 fL (7.4-10.4); Platelet Count 345 thou/uL (130-400); RBC Distribution Width 14.8 % (11.5-14.5); Red Blood Cell (RBC) Count 2.68 mill/uL (4.70-6.10); White Blood Cell (WBC) Count 12.7 thou/uL (4.8-10.8)
[2021-07-17 06:34] LABS: Anion Gap 12 mmol/L (10-20); BUN (Urea Nitrogen) 24 mg/dL (8.4-25.7); Calc. Creatinine Clearance 15 mL/min (70-130); Calcium 10.2 mg/dL (7.8-10.44); Carbon Dioxide 30 mmol/L (23-31); Chloride 96 mmol/L (98-107); Glucose 188 mg/dL (80-115); Potassium 3.8 mmol/L (3.5-5.1); Sodium 134 mmol/L (136-145)
[2021-07-17] MEDS: Aspirin 81 mg Enteric Coated Tablet PO SCH (09:23)
[2021-07-17] MEDS: Carvedilol 3.125 MG TAB PO SCH ×2 (09:23→17:59)
[2021-07-17] MEDS: Polyethylene Glycol 3350 17 GM Packet PO SCH (09:24)
[2021-07-17] MEDS: Clopidogrel Bisulfate 75 MG TAB PO SCH (09:24)
[2021-07-17] MEDS: Saccharomyces boulardii 250 MG CAP PO SCH (09:24)
[2021-07-17] MEDS: DorzolamidE/Timolol 2%/0.5% Ophth Soln 10 ml Bottle EA EYE SCH ×2 (09:24→21:36)
[2021-07-17] MEDS: EPOETIN ALFA-EPBX (ESRD) 4,000 UNIT/ML VIAL SC SCH (13:12)
[2021-07-17] MEDS: cefTRIAXone\\ROCEPHIN 2 GM in Sodium Chloride 0.9% 100 ML IVPB SCH (13:30)
[2021-07-17 20:14] LABS: Glucose 204 mg/dL (80-115)
[2021-07-17] MEDS: Atorvastatin Calcium 20 MG TAB PO SCH (21:29)
[2021-07-17] MEDS: Famotidine 20 MG TAB PO SCH (21:29)
[2021-07-18] MEDS: hydrALAZINE 20 MG/ML VIAL SLOW IVP PRN (05:23)
[2021-07-18] MEDS: HumaLOG 300 UNITS/3 ML VIAL SC PRN ×2 (05:23→13:52)
[2021-07-18 07:46] LABS: Glucose 292 mg/dL (80-115)
[2021-07-18] MEDS: Carvedilol 3.125 MG TAB PO SCH ×2 (07:55→17:31)
[2021-07-18] MEDS: Clopidogrel Bisulfate 75 MG TAB PO SCH (08:03)
[2021-07-18] MEDS: Aspirin 81 mg Enteric Coated Tablet PO SCH (08:03)
[2021-07-18] MEDS: DorzolamidE/Timolol 2%/0.5% Ophth Soln 10 ml Bottle EA EYE SCH (08:04)
[2021-07-18] MEDS: Polyethylene Glycol 3350 17 GM Packet PO SCH (08:04)
[2021-07-18] MEDS: Saccharomyces boulardii 250 MG CAP PO SCH (08:05)
[2021-07-18 13:03] LABS: Glucose 361 mg/dL (80-115)
[2021-07-18] MEDS: cefTRIAXone\\ROCEPHIN 2 GM in Sodium Chloride 0.9% 100 ML IVPB SCH (13:51)
[2021-07-18 16:24] VITALS: BP 157/62; TEMP 98.2
[2021-07-18 17:51] LABS: Glucose 263 mg/dL (80-115)
== END 2021-07-18 19:10 | DRG 853 ==
LOC: ERS 11:19 → ERHOLD 14:37 → IMCU/EMU 18:54 → SJJU 07-11 18:17
PROVIDERS: ADMIT Family Medicine; ATTEND Internal Medicine
PROC: 5A09457 Assistance with Respiratory Ventilation, 24-96 Consecutive Hours, Continuous Positive Airway Pressure (ICD-10-PCS; 2021-07-08)
PROC: 0Y6H0Z1 Detachment at Right Lower Leg, High, Open Approach (ICD-10-PCS; principal; 2021-07-09)
PROC: 5A1D70Z Performance of Urinary Filtration, Intermittent, Less than 6 Hours Per Day (ICD-10-PCS; 2021-07-12)
PROC: 0DH67UZ Insertion of Feeding Device into Stomach, Via Natural or Artificial Opening (ICD-10-PCS; 2021-07-13)
PROC: 3E0G76Z Introduction of Nutritional Substance into Upper GI, Via Natural or Artificial Opening (ICD-10-PCS; 2021-07-13)
PROC: 0DH63UZ Insertion of Feeding Device into Stomach, Percutaneous Approach (ICD-10-PCS; 2021-07-16)
DX: A41.51 Sepsis due to Escherichia coli [E. coli] (principal); Z20.822 Contact with and (suspected) exposure to COVID-19; N18.6 End stage renal disease; J96.01 Acute respiratory failure with hypoxia; G92.8 Other toxic encephalopathy; N39.0 Urinary tract infection, site not specified; T83.518A Infection and inflammatory reaction due to other urinary catheter, initial encounter; E11.52 Type 2 diabetes mellitus with diabetic peripheral angiopathy with gangrene; I70.261 Atherosclerosis of native arteries of extremities with gangrene, right leg; Z16.11 Resistance to penicillins; R65.20 Severe sepsis without septic shock; D63.1 Anemia in chronic kidney disease; E11.22 Type 2 diabetes mellitus with diabetic chronic kidney disease; R13.12 Dysphagia, oropharyngeal phase; I25.10 Atherosclerotic heart disease of native coronary artery without angina pectoris; E83.52 Hypercalcemia; R77.8 Other specified abnormalities of plasma proteins; R74.01 Elevation of levels of liver transaminase levels; D72.823 Leukemoid reaction; I25.5 Ischemic cardiomyopathy; N31.9 Neuromuscular dysfunction of bladder, unspecified; E78.2 Mixed hyperlipidemia; Y84.6 Urinary catheterization as the cause of abnormal reaction of the patient, or of later complication, without mention of misadventure at the time of the procedure; Z99.2 Dependence on renal dialysis; Z88.5 Allergy status to narcotic agent; Z95.828 Presence of other vascular implants and grafts; Z89.512 Acquired absence of left leg below knee; Z95.810 Presence of automatic (implantable) cardiac defibrillator; Z79.899 Other long term (current) drug therapy; Z79.82 Long term (current) use of aspirin
CPT/HCPCS: 0240U; 36415; 36416; 36600; 70450; 71045; 74018; 74176; 74230; 80048; 80053; 80202; 80307; 81003; 81015; 82140; 82553; 82805; 82947; 83605; 83690; 83735; 84145; 84443; 84484; 85025; 85610; 85730; 86706; 86850; 86900; 86901; 87040; 87077; 87086; 87149; 87186; 87340; 88307; 88311; 90935; 93005; 93010; 94660; 94760; 96365; 96367; G0257; J0360; J0696; J1644; J1815; J2185; J2270; J2370; J2704; J2765; J3010; J3370; J3490; Q5105; S0020; S0028; U0003; U0005

== ENCOUNTER 2021-12-25 15:01 | Inpatient (IN) | payer MEDICARE ==
[2021-12-25] MEDS ORDERED: Insulin Regular 300 UNITS/3 ML VIAL ONE (15:44)
[2021-12-25 16:02] LABS: Hemoglobin 8.9 g/dL (14.0-18.0); Mean Corpuscular HGB CONC 32.3 g/dL (32.0-36.0); Mean Corpuscular Hemoglobin 29.5 pg (27.0-31.0); Mean Corpuscular Volume 91.1 fL (78.0-98.0); Mean Platelet Volume 8.6 fL (7.4-10.4); Platelet Count 197 thou/uL (130-400); RBC Distribution Width 15.1 % (11.5-14.5); Red Blood Cell (RBC) Count 3.01 mill/uL (4.70-6.10); White Blood Cell (WBC) Count 28.4 thou/uL (4.8-10.8)
[2021-12-25 16:15] LABS: Band 7 % (5-11); Lymphocytes 2 % (21-51); MDiff Complete? YES; Monocytes 2 % (0-10); Neutrophil 89 % (42-75); Platelet Morphology Comment Appears Adequate; Polychromasia SLIGHT = 2-3 cells (100X) (0-2/hpf)
[2021-12-25 16:19] LABS: ALT (SGPT) 39 U/L (8-55); AST (SGOT) 47 U/L (5-34); Alkaline Phosphatase 291 U/L (40-110); Anion Gap 27 mmol/L (10-20); BUN (Urea Nitrogen) 103 mg/dL (8.4-25.7); CK (CPK) 19 U/L (30-200); Calc. Creatinine Clearance 0 mL/min (70-130); Calcium 10.3 mg/dL (7.8-10.44); Carbon Dioxide 23 mmol/L (23-31); Chloride 89 mmol/L (98-107); Globulin 5.6 g/dL (2.4-3.5); Glucose 544 mg/dL (83-110); Lipase 6 U/L (8-78); Magnesium 2.2 mg/dL (1.6-2.6); Potassium 6.2 mmol/L (3.5-5.1); Protein, Total 8.6 g/dL (5.8-8.1); Sodium 133 mmol/L (136-145)
[2021-12-25] MEDS ORDERED: Cefepime 2 GM VIAL ONE (16:22)
[2021-12-25 16:33] LABS: CKMB 0.6 ng/mL (0-6.6)
[2021-12-25] MEDS ORDERED: CALCIUM GLUC 1GM/NS 50ML BAG ONE (16:38)
[2021-12-25] MEDS ORDERED: Sodium Bicarb 50 MEQ/50 ML Abboject 8.4% SYRINGE ONE (16:38)
[2021-12-25] MEDS ORDERED: Vancomycin 1 GM/200 ML BAG ONE (17:20)
[2021-12-25 18:58] LABS: Troponin I 0.048 ng/mL (< 0.028)
[2021-12-25] MEDS ORDERED: Bisacodyl 5 MG TAB PO PRN (19:52)
[2021-12-25] MEDS ORDERED: Dextrose 50% Abboject 50 ML SYRINGE SLOW IVP PRN (19:52)
[2021-12-25] MEDS ORDERED: HumaLOG 300 UNITS/3 ML VIAL SC PRN ×2 (19:52)
[2021-12-25] MEDS ORDERED: Ondansetron PF 4 MG/2 ML Vial IVP PRN (19:52)
[2021-12-25] MEDS ORDERED: Dextrose 5% in Water 1,000 ML IV PRN (19:52)
[2021-12-25] MEDS ORDERED: Guaifenesin DM 100-10/5 ML UDCUP PO PRN (19:52)
[2021-12-25 19:55] LABS: Lactic Acid 2.1 mmol/L (0.5-2.2)
[2021-12-25] MEDS ORDERED: traMADol HCl 50 MG TAB PO PRN (19:57)
[2021-12-25] MEDS ORDERED: hydrALAZINE 20 MG/ML VIAL SLOW IVP PRN (20:10)
[2021-12-25] MEDS ORDERED: Morphine 2 MG/ML VIAL SLOW IVP PRN (20:10)
[2021-12-25] MEDS ORDERED: Sodium Chloride 0.9% 1,000 ML IV SCH (20:15)
[2021-12-25] MEDS ORDERED: Vancomycin 1 GM in Premix Bag 1 BAG IVPB SCH (20:15)
[2021-12-25] MEDS ORDERED: EPOETIN ALFA-EPBX (ESRD) 4,000 UNIT/ML VIAL SC SCH (21:00)
[2021-12-25] MEDS ORDERED: EPOETIN ALFA-EPBX (ESRD) 10,000 UNIT/ML VIAL SC SCH (21:00)
[2021-12-25] MEDS: Dorzolamide HCl 2% Ophth Soln 10 ml Bottle EA EYE SCH (23:55)
[2021-12-25] MEDS: Sodium Chloride 0.9% 1,000 ML IV SCH (23:55)
[2021-12-25 23:56] LABS: Anion Gap 19 mmol/L (10-20); BUN (Urea Nitrogen) 59 mg/dL (8.4-25.7); Calc. Creatinine Clearance 0 mL/min (70-130); Calcium 9.9 mg/dL (7.8-10.44); Carbon Dioxide 25 mmol/L (23-31); Chloride 95 mmol/L (98-107); Glucose 296 mg/dL (83-110); Potassium 4.8 mmol/L (3.5-5.1); Sodium 134 mmol/L (136-145)
[2021-12-25] MEDS: Timolol 0.5% Ophth Soln 5 ml Bottle EA EYE SCH (23:57)
[2021-12-25] MEDS: Lanthanum Carbonate 500 mg Chewable Tablet PO SCH (23:57)
[2021-12-25] MEDS: Sevelamer Carbonate 800 MG TAB PO SCH (23:57)
[2021-12-26] MEDS ORDERED: Insulin Glargine 30 UNITS/0.3 ML VIAL SC SCH (00:30)
[2021-12-26] MEDS ORDERED: Heparin 5,000 UNITS/ML VIAL SC SCH (00:30)
[2021-12-26] MEDS: Insulin Glargine 30 UNITS/0.3 ML VIAL SC SCH ×2 (03:57→21:18)
[2021-12-26] MEDS: Heparin 5,000 UNITS/ML VIAL SC SCH ×3 (03:57→21:18)
[2021-12-26] MEDS ORDERED: Vancomycin Hemodialysis Sliding Scale FS SCH (04:00)
[2021-12-26] MEDS ORDERED: Vancomycin HCl 500 MG in Sodium Chloride 0.9% 100 ML IVPB SCH (05:00)
[2021-12-26] MEDS: Sodium Chloride 0.9% 1,000 ML IV SCH ×3 (06:02→23:48)
[2021-12-26 07:52] LABS: ALT (SGPT) 44 U/L (8-55); AST (SGOT) 52 U/L (5-34); Albumin 2.6 g/dL (3.4-4.8); Alkaline Phosphatase 211 U/L (40-110); Anion Gap 18 mmol/L (10-20); BUN (Urea Nitrogen) 57 mg/dL (8.4-25.7); Bilirubin, Total 0.7 mg/dL (0.2-1.2); Calc. Creatinine Clearance 10 mL/min (70-130); Calcium 9.9 mg/dL (7.8-10.44); Carbon Dioxide 28 mmol/L (23-31); Chloride 97 mmol/L (98-107); Globulin 4.9 g/dL (2.4-3.5); Glucose 265 mg/dL (83-110); Potassium 4.4 mmol/L (3.5-5.1); Protein, Total 7.5 g/dL (5.8-8.1); Sodium 139 mmol/L (136-145)
[2021-12-26] MEDS ORDERED: Carvedilol 3.125 MG TAB PO SCH (08:00)
[2021-12-26 08:21] LABS: Band 8 % (5-11); Lymphocytes 10 % (21-51); MDiff Complete? YES; Mean Corpuscular HGB CONC 33.8 g/dL (32.0-36.0); Mean Corpuscular Hemoglobin 30.3 pg (27.0-31.0); Mean Corpuscular Volume 89.5 fL (78.0-98.0); Mean Platelet Volume 7.9 fL (7.4-10.4); Monocytes 9 % (0-10); Neutrophil 73 % (42-75); Platelet Count 164 thou/uL (130-400); Platelet Morphology Comment Appears Adequate; Polychromasia SLIGHT = 2-3 cells (100X) (0-2/hpf); RBC Distribution Width 14.8 % (11.5-14.5); Red Blood Cell (RBC) Count 2.63 mill/uL (4.70-6.10); White Blood Cell (WBC) Count 20.3 thou/uL (4.8-10.8)
[2021-12-26] MEDS: Dorzolamide HCl 2% Ophth Soln 10 ml Bottle EA EYE SCH ×2 (08:53→21:18)
[2021-12-26] MEDS: Timolol 0.5% Ophth Soln 5 ml Bottle EA EYE SCH ×2 (08:53→21:18)
[2021-12-26] MEDS: Lanthanum Carbonate 500 mg Chewable Tablet PO SCH ×3 (09:27→21:19)
[2021-12-26] MEDS: Clopidogrel Bisulfate 75 MG TAB PO SCH (09:27)
[2021-12-26] MEDS: Sevelamer Carbonate 800 MG TAB PO SCH ×3 (09:27→21:19)
[2021-12-26] MEDS: Carvedilol 3.125 MG TAB PO SCH ×2 (09:27→16:35)
[2021-12-26] MEDS: Saccharomyces boulardii 250 MG CAP PO SCH (09:27)
[2021-12-26] MEDS: Aspirin 81 mg Enteric Coated Tablet PO SCH (09:27)
[2021-12-26] MEDS ORDERED: Cefepime 0.5 GM, Admixture Fee 1 EACH in Sodium Chloride 0.9% 100 ML IVPB SCH (18:00)
[2021-12-26] MEDS ORDERED: CEFAZOLIN 0.5 GM in Sodium Chloride 0.9% 100 ML IVPB SCH (18:00)
[2021-12-27] MEDS: Aspirin 81 mg Enteric Coated Tablet PO SCH (07:37)
[2021-12-27] MEDS: Dorzolamide HCl 2% Ophth Soln 10 ml Bottle EA EYE SCH ×2 (07:37→21:27)
[2021-12-27] MEDS: Carvedilol 3.125 MG TAB PO SCH (07:37)
[2021-12-27] MEDS: Heparin 5,000 UNITS/ML VIAL SC SCH ×2 (07:37→21:22)
[2021-12-27] MEDS: Clopidogrel Bisulfate 75 MG TAB PO SCH (07:37)
[2021-12-27] MEDS: Lanthanum Carbonate 500 mg Chewable Tablet PO SCH ×3 (07:37→21:23)
[2021-12-27] MEDS: Saccharomyces boulardii 250 MG CAP PO SCH (07:38)
[2021-12-27] MEDS: Timolol 0.5% Ophth Soln 5 ml Bottle EA EYE SCH ×2 (07:38→21:25)
[2021-12-27] MEDS: Sevelamer Carbonate 800 MG TAB PO SCH ×4 (07:38→21:36)
[2021-12-27 08:31] LABS: Hemoglobin 6.8 g/dL (14.0-18.0); Mean Corpuscular HGB CONC 31.6 g/dL (32.0-36.0); Mean Corpuscular Hemoglobin 29.4 pg (27.0-31.0); Mean Corpuscular Volume 93.2 fL (78.0-98.0); Mean Platelet Volume 7.8 fL (7.4-10.4); Platelet Count 175 thou/uL (130-400); RBC Distribution Width 14.7 % (11.5-14.5); White Blood Cell (WBC) Count 14.7 thou/uL (4.8-10.8)
[2021-12-27 08:45] LABS: Vancomycin, Random 14.5 ug/mL (See Comment)
[2021-12-27 08:46] LABS: Anion Gap 14 mmol/L (10-20); BUN (Urea Nitrogen) 72 mg/dL (8.4-25.7); Calc. Creatinine Clearance 9 mL/min (70-130); Carbon Dioxide 26 mmol/L (23-31); Chloride 103 mmol/L (98-107); Glucose 85 mg/dL (83-110); Sodium 139 mmol/L (136-145)
[2021-12-27 08:48] LABS: Anion Gap 14 mmol/L (10-20); BUN (Urea Nitrogen) 72 mg/dL (8.4-25.7); Calc. Creatinine Clearance 9 mL/min (70-130); Carbon Dioxide 26 mmol/L (23-31); Chloride 103 mmol/L (98-107); Glucose 86 mg/dL (83-110); Sodium 139 mmol/L (136-145)
[2021-12-27 11:55] LABS: Band 9 % (5-11); Eosinophils 1 % (0-10); Hypochromia SLIGHT = 6-15 cells (100X) (0-5/hpf); Lymphocytes 7 % (21-51); MDiff Complete? YES; Monocytes 11 % (0-10); Neutrophil 72 % (42-75); Platelet Morphology Comment Appears Adequate; Polychromasia SLIGHT = 2-3 cells (100X) (0-2/hpf)
[2021-12-27] MEDS: Sodium Chloride 0.9% 1,000 ML IV SCH (16:34)
[2021-12-27] MEDS ORDERED: Vancomycin HCl 500 MG in Sodium Chloride 0.9% 100 ML IVPB SCH (17:00)
[2021-12-27] MEDS ORDERED: Non-Formulary Item 1 EACH (Insulin Glargine,Hum.Rec.Anlog [Basaglar Kwikpen U-100] 100 UN SC SCH (17:00)
[2021-12-27] MEDS ORDERED: Carvedilol 6.25 MG TAB PO SCH (21:00)
[2021-12-27] MEDS ORDERED: cloNIDine 0.1 MG TAB PO SCH (21:00)
[2021-12-27] MEDS: Cefepime 0.5 GM, Admixture Fee 1 EACH in Sodium Chloride 0.9% 100 ML IVPB SCH (21:09)
[2021-12-27] MEDS: Mirtazapine 15 MG TAB PO SCH (21:10)
[2021-12-27] MEDS: Acetaminophen 325 MG TAB PO PRN (21:10)
[2021-12-27] MEDS: Insulin Glargine 30 UNITS/0.3 ML VIAL SC SCH (21:24)
[2021-12-27] MEDS: Atorvastatin Calcium 20 MG TAB PO SCH (21:25)
[2021-12-28] MEDS ORDERED: Ibuprofen 200 MG TAB PO SCH (00:01)
[2021-12-28] MEDS ORDERED: Losartan 25 MG TAB PO SCH ×2 (09:00→12:45)
[2021-12-28 09:25] LABS: Hemoglobin 7.8 g/dL (14.0-18.0); Red Blood Cell (RBC) Count 2.67 mill/uL (4.70-6.10); White Blood Cell (WBC) Count 13.1 thou/uL (4.8-10.8)
[2021-12-28 09:26] LABS: #Eosinphils 0.1 thou/uL (0.0-0.7); #Lymphocytes 1.1 thou/uL (1.20-3.40); #Monocytes 1.1 thou/uL (0.11-0.59); #Neutrophils 10.7 thou/uL (1.40-6.50); %Basophils 0.2 % (0.0-1.0); %Eosinophils 0.9 % (0.0-10.0); %Lymphocytes 8.5 % (21.0-51.0); %Monocytes 8.2 % (0.0-10.0); %Neutrophils 82.2 % (42.0-75.0); Mean Corpuscular HGB CONC 31.2 g/dL (32.0-36.0); Mean Corpuscular Hemoglobin 29.3 pg (27.0-31.0); Mean Corpuscular Volume 93.9 fL (78.0-98.0); Mean Platelet Volume 7.7 fL (7.4-10.4); Platelet Count 194 thou/uL (130-400); RBC Distribution Width 15.2 % (11.5-14.5)
[2021-12-28] MEDS: Heparin 5,000 UNITS/ML VIAL SC SCH ×2 (09:32→21:23)
[2021-12-28] MEDS: Dorzolamide HCl 2% Ophth Soln 10 ml Bottle EA EYE SCH ×2 (09:32→21:21)
[2021-12-28] MEDS: Clopidogrel Bisulfate 75 MG TAB PO SCH (09:32)
[2021-12-28] MEDS: Aspirin 81 mg Enteric Coated Tablet PO SCH (09:32)
[2021-12-28] MEDS: Saccharomyces boulardii 250 MG CAP PO SCH (09:33)
[2021-12-28] MEDS: Lanthanum Carbonate 500 mg Chewable Tablet PO SCH ×3 (09:33→21:23)
[2021-12-28] MEDS: Tamsulosin HCl 0.4 MG CAP PO SCH (09:33)
[2021-12-28] MEDS: Timolol 0.5% Ophth Soln 5 ml Bottle EA EYE SCH ×2 (09:33→21:21)
[2021-12-28 09:42] LABS: Anion Gap 14 mmol/L (10-20); BUN (Urea Nitrogen) 40 mg/dL (8.4-25.7); Calc. Creatinine Clearance 13 mL/min (70-130); Calcium 9.8 mg/dL (7.8-10.44); Carbon Dioxide 27 mmol/L (23-31); Chloride 98 mmol/L (98-107); Glucose 107 mg/dL (83-110); Potassium 3.4 mmol/L (3.5-5.1); Sodium 136 mmol/L (136-145)
[2021-12-28 10:35] LABS: Band 5 % (5-11); Eosinophils 2 % (0-10); Lymphocytes 11 % (21-51); Monocytes 7 % (0-10); Neutrophil 75 % (42-75); Platelet Morphology Comment Appears Adequate; Polychromasia MODERATE = 3-4 cells (100X) (0-2/hpf)
[2021-12-28] MEDS ORDERED: Potassium Chloride 20 MEQ TAB PO SCH (12:30)
[2021-12-28] MEDS: Carvedilol 6.25 MG TAB PO SCH (16:58)
[2021-12-28] MEDS: Cefepime 0.5 GM, Admixture Fee 1 EACH in Sodium Chloride 0.9% 100 ML IVPB SCH (21:20)
[2021-12-28] MEDS: Insulin Glargine 30 UNITS/0.3 ML VIAL SC SCH (21:22)
[2021-12-28] MEDS: Acetaminophen 325 MG TAB PO PRN (21:22)
[2021-12-28] MEDS: Atorvastatin Calcium 20 MG TAB PO SCH (21:23)
[2021-12-28] MEDS: Mirtazapine 15 MG TAB PO SCH (21:26)
[2021-12-29] MEDS: Acetaminophen 325 MG TAB PO PRN ×2 (02:12→21:30)
[2021-12-29 05:03] LABS: Band 5 % (5-11); Hemoglobin 6.7 g/dL (14.0-18.0); Lymphocytes 12 % (21-51); MDiff Complete? YES; Mean Corpuscular HGB CONC 32.2 g/dL (32.0-36.0); Mean Corpuscular Hemoglobin 29.8 pg (27.0-31.0); Mean Corpuscular Volume 92.7 fL (78.0-98.0); Mean Platelet Volume 8.3 fL (7.4-10.4); Monocytes 10 % (0-10); Neutrophil 73 % (42-75); Platelet Count 170 thou/uL (130-400); RBC Distribution Width 15.3 % (11.5-14.5); Red Blood Cell (RBC) Count 2.25 mill/uL (4.70-6.10); White Blood Cell (WBC) Count 10.9 thou/uL (4.8-10.8)
[2021-12-29 05:04] LABS: Anion Gap 16 mmol/L (10-20); BUN (Urea Nitrogen) 56 mg/dL (8.4-25.7); Calc. Creatinine Clearance 10 mL/min (70-130); Calcium 9.4 mg/dL (7.8-10.44); Carbon Dioxide 23 mmol/L (23-31); Chloride 98 mmol/L (98-107); Glucose 229 mg/dL (83-110); Potassium 4.2 mmol/L (3.5-5.1); Sodium 133 mmol/L (136-145)
[2021-12-29] MEDS ORDERED: Vancomycin Diaylsis Sliding Scale (Wt 71-99) FS SCH (08:00)
[2021-12-29] MEDS: Dorzolamide HCl 2% Ophth Soln 10 ml Bottle EA EYE SCH ×2 (09:05→21:32)
[2021-12-29] MEDS: Aspirin 81 mg Enteric Coated Tablet PO SCH (09:05)
[2021-12-29] MEDS: Clopidogrel Bisulfate 75 MG TAB PO SCH (09:05)
[2021-12-29] MEDS: Carvedilol 6.25 MG TAB PO SCH ×2 (09:05→17:18)
[2021-12-29] MEDS: Saccharomyces boulardii 250 MG CAP PO SCH (09:06)
[2021-12-29] MEDS: Heparin 5,000 UNITS/ML VIAL SC SCH ×2 (09:06→21:31)
[2021-12-29] MEDS: Lanthanum Carbonate 500 mg Chewable Tablet PO SCH ×3 (09:06→21:29)
[2021-12-29] MEDS: Timolol 0.5% Ophth Soln 5 ml Bottle EA EYE SCH ×2 (09:06→21:28)
[2021-12-29] MEDS: Losartan 25 MG TAB PO SCH (09:06)
[2021-12-29] MEDS: Tamsulosin HCl 0.4 MG CAP PO SCH (09:06)
[2021-12-29 14:41] LABS: Hemoglobin 9.4 g/dL (14.0-18.0); Mean Corpuscular HGB CONC 31.9 g/dL (32.0-36.0); Mean Corpuscular Hemoglobin 29.4 pg (27.0-31.0); Mean Corpuscular Volume 92.2 fL (78.0-98.0); Mean Platelet Volume 7.7 fL (7.4-10.4); Platelet Count 202 thou/uL (130-400); RBC Distribution Width 15.5 % (11.5-14.5); Red Blood Cell (RBC) Count 3.17 mill/uL (4.70-6.10)
[2021-12-29 15:03] LABS: Band 1 % (5-11); Hypochromia SLIGHT = 6-15 cells (100X) (0-5/hpf); Lymphocytes 12 % (21-51); MDiff Complete? YES; Monocytes 6 % (0-10); Neutrophil 81 % (42-75); Platelet Morphology Comment Appears Adequate; Polychromasia SLIGHT = 2-3 cells (100X) (0-2/hpf)
[2021-12-29 15:37] VITALS: BMI 42.5
[2021-12-29] MEDS ORDERED: Vancomycin HCl 750 MG in Sodium Chloride 0.9% 250 ML 250 ML IVPB SCH (17:00)
[2021-12-29] MEDS: Cefepime 0.5 GM, Admixture Fee 1 EACH in Sodium Chloride 0.9% 100 ML IVPB SCH (19:54)
[2021-12-29] MEDS: Atorvastatin Calcium 20 MG TAB PO SCH (21:29)
[2021-12-29] MEDS: Mirtazapine 15 MG TAB PO SCH (21:30)
[2021-12-29] MEDS: Insulin Glargine 30 UNITS/0.3 ML VIAL SC SCH (21:31)
[2021-12-30 04:47] LABS: Hemoglobin 8.4 g/dL (14.0-18.0); Mean Corpuscular HGB CONC 32.1 g/dL (32.0-36.0); Mean Corpuscular Hemoglobin 29.7 pg (27.0-31.0); Mean Corpuscular Volume 92.7 fL (78.0-98.0); Mean Platelet Volume 7.8 fL (7.4-10.4); Platelet Count 217 thou/uL (130-400); RBC Distribution Width 15.7 % (11.5-14.5); Red Blood Cell (RBC) Count 2.83 mill/uL (4.70-6.10); White Blood Cell (WBC) Count 11.7 thou/uL (4.8-10.8)
[2021-12-30 04:48] LABS: Anion Gap 13 mmol/L (10-20); BUN (Urea Nitrogen) 28 mg/dL (8.4-25.7); Calc. Creatinine Clearance 15 mL/min (70-130); Calcium 9.8 mg/dL (7.8-10.44); Carbon Dioxide 31 mmol/L (23-31); Chloride 97 mmol/L (98-107); Glucose 91 mg/dL (83-110); Potassium 3.6 mmol/L (3.5-5.1); Sodium 137 mmol/L (136-145)
[2021-12-30 05:05] LABS: Band 2 % (5-11); Eosinophils 2 % (0-10); Lymphocytes 9 % (21-51); MDiff Complete? YES; Monocytes 5 % (0-10); Neutrophil 82 % (42-75)
[2021-12-30] MEDS: Lanthanum Carbonate 500 mg Chewable Tablet PO SCH ×2 (09:21→15:01)
[2021-12-30] MEDS: Dorzolamide HCl 2% Ophth Soln 10 ml Bottle EA EYE SCH (09:21)
[2021-12-30] MEDS: Timolol 0.5% Ophth Soln 5 ml Bottle EA EYE SCH (09:22)
[2021-12-30] MEDS: Losartan 25 MG TAB PO SCH (09:22)
[2021-12-30] MEDS: Tamsulosin HCl 0.4 MG CAP PO SCH (09:23)
[2021-12-30] MEDS: Heparin 5,000 UNITS/ML VIAL SC SCH (09:23)
[2021-12-30] MEDS: Clopidogrel Bisulfate 75 MG TAB PO SCH (09:23)
[2021-12-30] MEDS: Aspirin 81 mg Enteric Coated Tablet PO SCH (09:23)
[2021-12-30] MEDS: Carvedilol 6.25 MG TAB PO SCH ×2 (09:23→17:22)
[2021-12-30] MEDS: Saccharomyces boulardii 250 MG CAP PO SCH (09:23)
[2021-12-30 17:23] VITALS: BP 150/67; TEMP 98.6
== END 2021-12-30 19:15 | disposition home health service (06) | DRG 871 ==
LOC: ERS 15:01 → 2NO 16:59
PROVIDERS: ADMIT Family Medicine; ATTEND Internal Medicine
PROC: 3E03329 Introduction of Other Anti-infective into Peripheral Vein, Percutaneous Approach (ICD-10-PCS; 2021-12-25)
PROC: 5A1D70Z Performance of Urinary Filtration, Intermittent, Less than 6 Hours Per Day (ICD-10-PCS; 2021-12-25)
PROC: 5A1D70Z Performance of Urinary Filtration, Intermittent, Less than 6 Hours Per Day (ICD-10-PCS; 2021-12-27)
PROC: 30233N1 Transfusion of Nonautologous Red Blood Cells into Peripheral Vein, Percutaneous Approach (ICD-10-PCS; principal; 2021-12-29)
PROC: 5A1D70Z Performance of Urinary Filtration, Intermittent, Less than 6 Hours Per Day (ICD-10-PCS; 2021-12-29)
DX: A41.9 Sepsis, unspecified organism (principal); N18.6 End stage renal disease; J18.9 Pneumonia, unspecified organism; G93.41 Metabolic encephalopathy; I50.22 Chronic systolic (congestive) heart failure; I13.2 Hypertensive heart and chronic kidney disease with heart failure and with stage 5 chronic kidney disease, or end stage renal disease; E78.5 Hyperlipidemia, unspecified; E11.65 Type 2 diabetes mellitus with hyperglycemia; E11.22 Type 2 diabetes mellitus with diabetic chronic kidney disease; E11.51 Type 2 diabetes mellitus with diabetic peripheral angiopathy without gangrene; E87.5 Hyperkalemia; E88.09 Other disorders of plasma-protein metabolism, not elsewhere classified; D63.1 Anemia in chronic kidney disease; I25.5 Ischemic cardiomyopathy; Z20.822 Contact with and (suspected) exposure to COVID-19; Z99.2 Dependence on renal dialysis; I25.2 Old myocardial infarction; Z95.810 Presence of automatic (implantable) cardiac defibrillator; Z98.890 Other specified postprocedural states; Z89.512 Acquired absence of left leg below knee; Z88.5 Allergy status to narcotic agent; Z79.82 Long term (current) use of aspirin; Z79.899 Other long term (current) drug therapy; Z79.84 Long term (current) use of oral hypoglycemic drugs; Z89.511 Acquired absence of right leg below knee
CPT/HCPCS: 36415; 36416; 36430; 70450; 71045; 80048; 80053; 80202; 82550; 82553; 83605; 83690; 83735; 84145; 84443; 84484; 85025; 86850; 86900; 86901; 87040; 90935; 93005; 93306; 96374; 96375; 99212; G0257; G0463; J0610; J0692; J1644; J1815; J2270; J3370; J3490; J7050; P9016; Q5105; U0003; U0005

== ENCOUNTER 2022-01-02 20:32 | Inpatient (IN) | payer MEDICARE ==
[2022-01-02 21:25] LABS: #Basophils 0.1 thou/uL (0.0-0.2); #Eosinphils 0.1 thou/uL (0.0-0.7); #Lymphocytes 1.2 thou/uL (1.20-3.40); #Monocytes 0.8 thou/uL (0.11-0.59); #Neutrophils 15.7 thou/uL (1.40-6.50); %Basophils 0.4 % (0.0-1.0); %Eosinophils 0.4 % (0.0-10.0); %Lymphocytes 6.8 % (21.0-51.0); %Monocytes 4.3 % (0.0-10.0); %Neutrophils 88.1 % (42.0-75.0); Hemoglobin 8.1 g/dL (14.0-18.0); Mean Corpuscular HGB CONC 31.9 g/dL (32.0-36.0); Mean Corpuscular Hemoglobin 29.8 pg (27.0-31.0); Mean Corpuscular Volume 93.6 fL (78.0-98.0); Mean Platelet Volume 6.9 fL (7.4-10.4); Platelet Count 370 thou/uL (130-400); RBC Distribution Width 14.9 % (11.5-14.5); Red Blood Cell (RBC) Count 2.71 mill/uL (4.70-6.10); White Blood Cell (WBC) Count 17.8 thou/uL (4.8-10.8)
[2022-01-02 21:29] LABS: Actual Bicarbonate (HCO3v) 29 mEq/L (22-28); Analyzer IN Cardio ER; Base Excess 5.9 mEq/L (-2.0 to +3.0); Calcium, Ionized (venous) 1.09 mmol/L (1.16-1.32); Chloride (VBG) 94 mmol/L (98-106); Potassium (VBG) 3.49 mmol/L (3.70-5.30); Sodium 132.2 mmol/L (133-146); pH (venous) 7.51 (7.32-7.43)
[2022-01-02 21:49] LABS: ALT (SGPT) 25 U/L (8-55); AST (SGOT) 25 U/L (5-34); Albumin 2.4 g/dL (3.4-4.8); Alkaline Phosphatase 382 U/L (40-110); Anion Gap 17 mmol/L (10-20); BUN (Urea Nitrogen) 42 mg/dL (8.4-25.7); Bilirubin, Total 0.6 mg/dL (0.2-1.2); Calc. Creatinine Clearance 0 mL/min (70-130); Calcium 9.1 mg/dL (7.8-10.44); Carbon Dioxide 29 mmol/L (23-31); Chloride 92 mmol/L (98-107); Globulin 4.9 g/dL (2.4-3.5); Glucose 314 mg/dL (83-110); Lipase 8 U/L (8-78); Potassium 3.6 mmol/L (3.5-5.1); Protein, Total 7.3 g/dL (5.8-8.1); Sodium 134 mmol/L (136-145)
[2022-01-02] MEDS ORDERED: Cefepime 2 GM VIAL ONE (22:36)
[2022-01-02] MEDS ORDERED: Morphine 4 MG/ML VIAL ONE (22:36)
[2022-01-02] MEDS ORDERED: Vancomycin 1.5 GRAM/300 ML BAG 1.5 GM in Premix Bag 1 BAG IVPB SCH (22:45)
[2022-01-02 22:50] LABS: SARS-CoV-2 NAA Rapid Test Not Detected (NotDetected)
[2022-01-03] MEDS ORDERED: Vancomycin HCl 1 GM in Sodium Chloride 0.9% 250 ML 300 ML IVPB SCH (09:39)
[2022-01-03] MEDS ORDERED: Dextrose 5% in Water 1,000 ML IV PRN (09:39)
[2022-01-03] MEDS ORDERED: Acetaminophen 500 MG TAB PO PRN (09:39)
[2022-01-03] MEDS ORDERED: Acetaminophen 325 MG TAB PO PRN (09:39)
[2022-01-03] MEDS ORDERED: Dextrose 50% Abboject 50 ML SYRINGE SLOW IVP PRN (09:39)
[2022-01-03] MEDS ORDERED: Ondansetron PF 4 MG/2 ML Vial IVP PRN (09:39)
[2022-01-03] MEDS ORDERED: Bisacodyl 5 MG TAB PO PRN (09:39)
[2022-01-03] MEDS ORDERED: traMADol HCl 50 MG TAB PO PRN (09:39)
[2022-01-03] MEDS ORDERED: Senokot S 8.6-50 MG TAB PO PRN (09:39)
[2022-01-03] MEDS ORDERED: Ondansetron ODT 4 MG TAB SL PRN (09:39)
[2022-01-03] MEDS ORDERED: Clopidogrel Bisulfate 75 MG TAB PO SCH (10:15)
[2022-01-03] MEDS ORDERED: Heparin 5,000 UNITS/ML VIAL SC SCH (10:15)
[2022-01-03] MEDS ORDERED: Sevelamer Carbonate 800 MG TAB PO SCH (10:15)
[2022-01-03] MEDS ORDERED: Aspirin 81 mg Enteric Coated Tablet PO SCH (10:15)
[2022-01-03] MEDS ORDERED: Saccharomyces boulardii 250 MG CAP PO SCH (10:15)
[2022-01-03] MEDS ORDERED: Dorzolamide HCl 2% Ophth Soln 10 ml Bottle EA EYE SCH ×2 (10:30→21:00)
[2022-01-03] MEDS ORDERED: Famotidine 20 MG TAB PO SCH (10:30)
[2022-01-03] MEDS ORDERED: Timolol 0.5% Ophth Soln 5 ml Bottle EA EYE SCH (10:30)
[2022-01-03] MEDS ORDERED: Clopidogrel Bisulfate 75 MG TAB ONE (11:52)
[2022-01-03] MEDS ORDERED: Aspirin 81 mg Enteric Coated Tablet ONE (11:52)
[2022-01-03] MEDS ORDERED: Vancomycin Hemodialysis Sliding Scale FS SCH (12:45)
[2022-01-03] MEDS: Sodium Chloride 0.9% 1,000 ML IV SCH (14:06)
[2022-01-03] MEDS: HYDROcodone/Acetaminophen 5/325 mg Tablet PO PRN (14:37)
[2022-01-03] MEDS: Heparin 5,000 UNITS/ML VIAL SC SCH ×2 (14:42→21:33)
[2022-01-03] MEDS: Epoetin (ESRD) 10,000 UNITS/ML VIAL SC SCH (21:30)
[2022-01-03] MEDS: Cefepime 1 GM in Sodium Chloride 0.9% 100 ML IVPB SCH (21:31)
[2022-01-03] MEDS: Timolol 0.5% Ophth Soln 5 ml Bottle EA EYE SCH (21:32)
[2022-01-03] MEDS: Gabapentin 100 MG CAP PO SCH (21:33)
[2022-01-03] MEDS: Sevelamer Carbonate 800 MG TAB PO SCH (21:33)
[2022-01-04 04:58] LABS: #Basophils 0.1 thou/uL (0.0-0.2); #Eosinphils 0.2 thou/uL (0.0-0.7); #Lymphocytes 1.3 thou/uL (1.20-3.40); #Monocytes 0.8 thou/uL (0.11-0.59); #Neutrophils 12.3 thou/uL (1.40-6.50); %Basophils 0.4 % (0.0-1.0); %Eosinophils 1.4 % (0.0-10.0); %Lymphocytes 8.7 % (21.0-51.0); %Monocytes 5.2 % (0.0-10.0); %Neutrophils 84.4 % (42.0-75.0); Hemoglobin 7.6 g/dL (14.0-18.0); Mean Corpuscular HGB CONC 31.1 g/dL (32.0-36.0); Mean Corpuscular Hemoglobin 29.5 pg (27.0-31.0); Mean Corpuscular Volume 94.9 fL (78.0-98.0); Platelet Count 384 thou/uL (130-400); RBC Distribution Width 14.4 % (11.5-14.5); Red Blood Cell (RBC) Count 2.59 mill/uL (4.70-6.10); White Blood Cell (WBC) Count 14.6 thou/uL (4.8-10.8)
[2022-01-04 05:28] LABS: ALT (SGPT) 23 U/L (8-55); AST (SGOT) 27 U/L (5-34); Albumin 2.4 g/dL (3.4-4.8); Alkaline Phosphatase 301 U/L (40-110); Anion Gap 13 mmol/L (10-20); BUN (Urea Nitrogen) 24 mg/dL (8.4-25.7); Bilirubin, Total 0.5 mg/dL (0.2-1.2); Calc. Creatinine Clearance 14 mL/min (70-130); Calcium 10.1 mg/dL (7.8-10.44); Carbon Dioxide 31 mmol/L (23-31); Chloride 98 mmol/L (98-107); Glucose 263 mg/dL (83-110); Potassium 3.6 mmol/L (3.5-5.1); Protein, Total 7.4 g/dL (5.8-8.1); Sodium 138 mmol/L (136-145)
[2022-01-04] MEDS: HumaLOG 300 UNITS/3 ML VIAL SC PRN ×2 (05:54→18:00)
[2022-01-04] MEDS: Sodium Chloride 0.9% 1,000 ML IV SCH (05:55)
[2022-01-04] MEDS ORDERED: Enoxaparin Sodium 30 MG/0.3 ML SYRINGE SC SCH (09:00)
[2022-01-04] MEDS: Sevelamer Carbonate 800 MG TAB PO SCH ×3 (09:12→16:06)
[2022-01-04] MEDS: Aspirin 81 mg Enteric Coated Tablet PO SCH (09:12)
[2022-01-04] MEDS: Clopidogrel Bisulfate 75 MG TAB PO SCH (09:13)
[2022-01-04] MEDS: Saccharomyces boulardii 250 MG CAP PO SCH (09:13)
[2022-01-04] MEDS: Famotidine 20 MG TAB PO SCH (09:13)
[2022-01-04] MEDS: Timolol 0.5% Ophth Soln 5 ml Bottle EA EYE SCH ×2 (09:13→21:37)
[2022-01-04] MEDS: Heparin 5,000 UNITS/ML VIAL SC SCH ×3 (09:13→21:38)
[2022-01-04 09:27] VITALS: BMI 22.6
[2022-01-04] MEDS ORDERED: Dorzolamide HCl 2% Ophth Soln 10 ml Bottle EA EYE SCH (13:15)
[2022-01-04] MEDS: Gabapentin 100 MG CAP PO SCH (21:37)
[2022-01-04] MEDS: Dorzolamide HCl 2% Ophth Soln 10 ml Bottle EA EYE SCH (21:37)
[2022-01-04] MEDS: Cefepime 1 GM in Sodium Chloride 0.9% 100 ML IVPB SCH (21:38)
[2022-01-05] MEDS: Sodium Chloride 0.9% 1,000 ML IV SCH ×2 (04:37→21:06)
[2022-01-05] MEDS: HumaLOG 300 UNITS/3 ML VIAL SC PRN (06:33)
[2022-01-05 09:19] LABS: #Basophils 0.1 thou/uL (0.0-0.2); #Eosinphils 0.2 thou/uL (0.0-0.7); #Lymphocytes 1.1 thou/uL (1.20-3.40); #Monocytes 0.8 thou/uL (0.11-0.59); #Neutrophils 9.8 thou/uL (1.40-6.50); %Basophils 0.4 % (0.0-1.0); %Eosinophils 2.1 % (0.0-10.0); %Lymphocytes 9.3 % (21.0-51.0); %Monocytes 6.5 % (0.0-10.0); %Neutrophils 81.7 % (42.0-75.0); Hemoglobin 7.5 g/dL (14.0-18.0); Mean Corpuscular HGB CONC 31.2 g/dL (32.0-36.0); Mean Corpuscular Hemoglobin 29.7 pg (27.0-31.0); Mean Platelet Volume 6.8 fL (7.4-10.4); Platelet Count 358 thou/uL (130-400); RBC Distribution Width 14.4 % (11.5-14.5); Red Blood Cell (RBC) Count 2.52 mill/uL (4.70-6.10); White Blood Cell (WBC) Count 11.9 thou/uL (4.8-10.8)
[2022-01-05 09:22] LABS: Vancomycin, Random 20.3 ug/mL (See Comment)
[2022-01-05] MEDS: Sevelamer Carbonate 800 MG TAB PO SCH ×3 (09:33→17:00)
[2022-01-05] MEDS: Aspirin 81 mg Enteric Coated Tablet PO SCH (09:33)
[2022-01-05] MEDS: Saccharomyces boulardii 250 MG CAP PO SCH (09:33)
[2022-01-05] MEDS: Heparin 5,000 UNITS/ML VIAL SC SCH ×3 (09:33→21:05)
[2022-01-05] MEDS: Famotidine 20 MG TAB PO SCH (09:33)
[2022-01-05] MEDS: Clopidogrel Bisulfate 75 MG TAB PO SCH (09:34)
[2022-01-05] MEDS: Timolol 0.5% Ophth Soln 5 ml Bottle EA EYE SCH ×2 (09:34→21:06)
[2022-01-05] MEDS: Dorzolamide HCl 2% Ophth Soln 10 ml Bottle EA EYE SCH ×2 (09:34→21:06)
[2022-01-05 09:42] LABS: Anion Gap 13 mmol/L (10-20); BUN (Urea Nitrogen) 33 mg/dL (8.4-25.7); Calc. Creatinine Clearance 10 mL/min (70-130); Calcium 9.6 mg/dL (7.8-10.44); Carbon Dioxide 28 mmol/L (23-31); Chloride 102 mmol/L (98-107); Glucose 162 mg/dL (83-110); Potassium 3.7 mmol/L (3.5-5.1); Sodium 139 mmol/L (136-145)
[2022-01-05] MEDS: Gabapentin 100 MG CAP PO SCH (21:04)
[2022-01-05] MEDS: Cefepime 1 GM in Sodium Chloride 0.9% 100 ML IVPB SCH (21:07)
[2022-01-05] MEDS: HYDROcodone/Acetaminophen 5/325 mg Tablet PO PRN (21:40)
[2022-01-06] MEDS: Clopidogrel Bisulfate 75 MG TAB PO SCH (08:40)
[2022-01-06] MEDS: Saccharomyces boulardii 250 MG CAP PO SCH (08:40)
[2022-01-06] MEDS: Heparin 5,000 UNITS/ML VIAL SC SCH ×3 (08:40→19:50)
[2022-01-06] MEDS: Sevelamer Carbonate 800 MG TAB PO SCH ×3 (08:40→17:22)
[2022-01-06] MEDS: Aspirin 81 mg Enteric Coated Tablet PO SCH (08:40)
[2022-01-06] MEDS: Famotidine 20 MG TAB PO SCH (08:42)
[2022-01-06] MEDS: Dorzolamide HCl 2% Ophth Soln 10 ml Bottle EA EYE SCH ×2 (08:42→19:51)
[2022-01-06] MEDS: Timolol 0.5% Ophth Soln 5 ml Bottle EA EYE SCH ×2 (08:43→19:51)
[2022-01-06] MEDS: HYDROcodone/Acetaminophen 5/325 mg Tablet PO PRN ×3 (08:48→17:42)
[2022-01-06] MEDS: HumaLOG 300 UNITS/3 ML VIAL SC PRN ×2 (12:31→17:23)
[2022-01-06] MEDS: Sodium Chloride 0.9% 1,000 ML IV SCH (17:23)
[2022-01-06] MEDS ORDERED: Losartan 25 MG TAB PO SCH (18:45)
[2022-01-06] MEDS ORDERED: Carvedilol 6.25 MG TAB PO SCH (18:45)
[2022-01-06] MEDS: Gabapentin 100 MG CAP PO SCH (19:49)
[2022-01-06] MEDS: Cefepime 1 GM in Sodium Chloride 0.9% 100 ML IVPB SCH (19:52)
[2022-01-06] MEDS ORDERED: Chloraseptic Spray 180 ml Bottle PO PRN (20:36)
[2022-01-06] MEDS ORDERED: clonazePAM 1 MG TAB PO SCH (21:00)
[2022-01-07] MEDS: Carvedilol 6.25 MG TAB PO SCH ×2 (05:22→17:17)
[2022-01-07 06:46] LABS: Chloride 101 mmol/L (98-107); Potassium 3.8 mmol/L (3.5-5.1); Sodium 137 mmol/L (136-145)
[2022-01-07 06:53] LABS: #Eosinphils 0.2 thou/uL (0.0-0.7); #Lymphocytes 1.1 thou/uL (1.20-3.40); #Monocytes 0.4 thou/uL (0.11-0.59); %Basophils 0.4 % (0.0-1.0); %Eosinophils 2.2 % (0.0-10.0); %Lymphocytes 12.2 % (21.0-51.0); %Monocytes 4.3 % (0.0-10.0); %Neutrophils 80.9 % (42.0-75.0); Hemoglobin 7.3 g/dL (14.0-18.0); Mean Corpuscular HGB CONC 31.4 g/dL (32.0-36.0); Mean Corpuscular Hemoglobin 29.4 pg (27.0-31.0); Mean Corpuscular Volume 93.6 fL (78.0-98.0); Platelet Count 131 thou/uL (130-400); RBC Distribution Width 14.2 % (11.5-14.5); Red Blood Cell (RBC) Count 2.48 mill/uL (4.70-6.10); White Blood Cell (WBC) Count 8.6 thou/uL (4.8-10.8)
[2022-01-07 07:00] LABS: Calcium 9.4 mg/dL (7.8-10.44); Glucose 187 mg/dL (83-110)
[2022-01-07 07:02] LABS: Anion Gap 17 mmol/L (10-20); Carbon Dioxide 24 mmol/L (23-31)
[2022-01-07 07:04] LABS: Calc. Creatinine Clearance 10 mL/min (70-130)
[2022-01-07 07:05] LABS: BUN (Urea Nitrogen) 34 mg/dL (8.4-25.7)
[2022-01-07 07:08] LABS: Vancomycin, Random 14.5 ug/mL (See Comment)
[2022-01-07] MEDS: cloNIDine 0.1 MG TAB PO SCH ×2 (08:46→20:10)
[2022-01-07] MEDS: Sevelamer Carbonate 800 MG TAB PO SCH ×3 (08:46→17:32)
[2022-01-07] MEDS: Aspirin 81 mg Enteric Coated Tablet PO SCH (08:46)
[2022-01-07] MEDS: Clopidogrel Bisulfate 75 MG TAB PO SCH (08:50)
[2022-01-07] MEDS: Famotidine 20 MG TAB PO SCH (08:50)
[2022-01-07] MEDS: Dorzolamide HCl 2% Ophth Soln 10 ml Bottle EA EYE SCH ×2 (08:50→20:14)
[2022-01-07] MEDS: Heparin 5,000 UNITS/ML VIAL SC SCH ×3 (08:51→20:33)
[2022-01-07] MEDS: Timolol 0.5% Ophth Soln 5 ml Bottle EA EYE SCH ×2 (08:51→20:15)
[2022-01-07] MEDS: Saccharomyces boulardii 250 MG CAP PO SCH (08:51)
[2022-01-07] MEDS: Losartan 25 MG TAB PO SCH (08:51)
[2022-01-07] MEDS: HYDROcodone/Acetaminophen 5/325 mg Tablet PO PRN ×2 (09:48→20:11)
[2022-01-07] MEDS ORDERED: fentaNYL Citrate/PF 100 MCG/2 ML SYRINGE ONE (12:13)
[2022-01-07] MEDS ORDERED: Lidocaine 1% PF 5 ML VIAL ONE (12:55)
[2022-01-07] MEDS ORDERED: ePHEDrine 50 MG/ML VIAL ONE (12:55)
[2022-01-07] MEDS ORDERED: Ropivacaine 0.5% HCl/PF (150 MG/30 ML VIAL) ONE (12:55)
[2022-01-07] MEDS ORDERED: PROPOFOL 200 MG/20 ML VIAL ONE (12:55)
[2022-01-07] MEDS ORDERED: Ondansetron PF 4 MG/2 ML Vial ONE (12:55)
[2022-01-07] MEDS ORDERED: Promethazine HCl 25 MG/ML VIAL IM PRN (13:50)
[2022-01-07] MEDS ORDERED: HYDROmorphone 2 MG/ML VIAL SLOW IVP PRN (13:50)
[2022-01-07] MEDS ORDERED: Ondansetron HCl/PF 4 MG/2 ML Vial IVP PRN (13:50)
[2022-01-07] MEDS ORDERED: Promethazine HCl 25 MG/ML VIAL IVPB PRN (13:50)
[2022-01-07] MEDS: Sodium Chloride 0.9% 1,000 ML IV SCH (16:01)
[2022-01-07] MEDS ORDERED: Vancomycin HCl 500 MG in Sodium Chloride 0.9% 100 ML IVPB SCH (17:00)
[2022-01-07] MEDS ORDERED: HYDROcodone/Acetaminophen 5/325 mg Tablet PO PRN (18:13)
[2022-01-07] MEDS: Gabapentin 100 MG CAP PO SCH (20:09)
[2022-01-07] MEDS: Cefepime 1 GM in Sodium Chloride 0.9% 100 ML IVPB SCH (22:20)
[2022-01-08] MEDS: HYDROcodone/Acetaminophen 5/325 mg Tablet PO PRN ×3 (04:36→22:31)
[2022-01-08] MEDS: HumaLOG 300 UNITS/3 ML VIAL SC PRN ×4 (06:45→22:21)
[2022-01-08] MEDS: Sevelamer Carbonate 800 MG TAB PO SCH ×3 (08:21→16:54)
[2022-01-08] MEDS: Aspirin 81 mg Enteric Coated Tablet PO SCH (08:22)
[2022-01-08] MEDS: Losartan 25 MG TAB PO SCH (08:22)
[2022-01-08] MEDS: Clopidogrel Bisulfate 75 MG TAB PO SCH (08:22)
[2022-01-08] MEDS: Gabapentin 100 MG CAP PO SCH ×3 (08:22→22:21)
[2022-01-08] MEDS: Polyethylene Glycol 3350 17 GM Packet PO SCH (08:23)
[2022-01-08] MEDS: Carvedilol 6.25 MG TAB PO SCH ×2 (08:23→16:54)
[2022-01-08] MEDS: Heparin 5,000 UNITS/ML VIAL SC SCH ×3 (08:23→22:22)
[2022-01-08] MEDS: Saccharomyces boulardii 250 MG CAP PO SCH (08:23)
[2022-01-08] MEDS: Dorzolamide HCl 2% Ophth Soln 10 ml Bottle EA EYE SCH ×2 (08:24→22:23)
[2022-01-08] MEDS: Timolol 0.5% Ophth Soln 5 ml Bottle EA EYE SCH ×2 (08:24→22:23)
[2022-01-08] MEDS: cloNIDine 0.1 MG TAB PO SCH ×2 (08:24→22:21)
[2022-01-08] MEDS: Famotidine 20 MG TAB PO SCH (08:25)
[2022-01-08] MEDS: Sodium Chloride 0.9% 1,000 ML IV SCH (10:04)
[2022-01-08 14:24] LABS: #Eosinphils 0.1 thou/uL (0.0-0.7); #Lymphocytes 1.2 thou/uL (1.20-3.40); #Neutrophils 9.2 thou/uL (1.40-6.50); %Basophils 0.3 % (0.0-1.0); %Lymphocytes 10.7 % (21.0-51.0); %Monocytes 8.7 % (0.0-10.0); %Neutrophils 79.3 % (42.0-75.0); Hemoglobin 8.6 g/dL (14.0-18.0); Mean Corpuscular HGB CONC 31.6 g/dL (32.0-36.0); Mean Corpuscular Hemoglobin 29.5 pg (27.0-31.0); Mean Corpuscular Volume 93.5 fL (78.0-98.0); Platelet Count 323 thou/uL (130-400); RBC Distribution Width 14.9 % (11.5-14.5); White Blood Cell (WBC) Count 11.6 thou/uL (4.8-10.8)
[2022-01-08 14:36] LABS: ALT (SGPT) 15 U/L (8-55); AST (SGOT) 25 U/L (5-34); Albumin 2.3 g/dL (3.4-4.8); Alkaline Phosphatase 265 U/L (40-110); Anion Gap 14 mmol/L (10-20); BUN (Urea Nitrogen) 29 mg/dL (8.4-25.7); Calc. Creatinine Clearance 12 mL/min (70-130); Calcium 9.6 mg/dL (7.8-10.44); Carbon Dioxide 25 mmol/L (23-31); Chloride 102 mmol/L (98-107); Glucose 182 mg/dL (83-110); Protein, Total 7.3 g/dL (5.8-8.1); Sodium 137 mmol/L (136-145)
[2022-01-09] MEDS: Sodium Chloride 0.9% 1,000 ML IV SCH ×2 (02:56→21:30)
[2022-01-09] MEDS: HumaLOG 300 UNITS/3 ML VIAL SC PRN ×2 (06:04→21:18)
[2022-01-09] MEDS: HYDROcodone/Acetaminophen 5/325 mg Tablet PO PRN ×2 (06:04→21:17)
[2022-01-09] MEDS: Polyethylene Glycol 3350 17 GM Packet PO SCH (08:26)
[2022-01-09] MEDS: Gabapentin 100 MG CAP PO SCH ×3 (08:27→21:18)
[2022-01-09] MEDS: Sevelamer Carbonate 800 MG TAB PO SCH ×3 (08:27→16:34)
[2022-01-09] MEDS: Aspirin 81 mg Enteric Coated Tablet PO SCH (08:27)
[2022-01-09] MEDS: Clopidogrel Bisulfate 75 MG TAB PO SCH (08:27)
[2022-01-09] MEDS: Carvedilol 6.25 MG TAB PO SCH ×2 (08:27→16:34)
[2022-01-09] MEDS: Insulin Glargine 30 UNITS/0.3 ML VIAL SC SCH (08:28)
[2022-01-09] MEDS: Losartan 25 MG TAB PO SCH (08:28)
[2022-01-09] MEDS: Saccharomyces boulardii 250 MG CAP PO SCH (08:28)
[2022-01-09] MEDS: cloNIDine 0.1 MG TAB PO SCH ×2 (08:28→21:18)
[2022-01-09] MEDS: Heparin 5,000 UNITS/ML VIAL SC SCH ×3 (08:28→21:18)
[2022-01-09] MEDS: Dorzolamide HCl 2% Ophth Soln 10 ml Bottle EA EYE SCH ×2 (08:29→21:18)
[2022-01-09] MEDS: Famotidine 20 MG TAB PO SCH (08:29)
[2022-01-09] MEDS: Timolol 0.5% Ophth Soln 5 ml Bottle EA EYE SCH ×2 (08:29→21:19)
[2022-01-09] MEDS: Zolpidem Tartrate 5 MG TAB PO SCH (21:17)
[2022-01-10] MEDS: Sevelamer Carbonate 800 MG TAB PO SCH ×3 (08:47→16:28)
[2022-01-10] MEDS: Carvedilol 6.25 MG TAB PO SCH ×2 (08:47→16:38)
[2022-01-10] MEDS: Heparin 5,000 UNITS/ML VIAL SC SCH ×3 (08:48→21:03)
[2022-01-10] MEDS: Insulin Glargine 30 UNITS/0.3 ML VIAL SC SCH (08:48)
[2022-01-10] MEDS: Gabapentin 100 MG CAP PO SCH ×3 (08:48→21:03)
[2022-01-10] MEDS: Aspirin 81 mg Enteric Coated Tablet PO SCH (13:55)
[2022-01-10] MEDS: HYDROcodone/Acetaminophen 5/325 mg Tablet PO PRN ×2 (13:55→21:02)
[2022-01-10] MEDS: cloNIDine 0.1 MG TAB PO SCH ×2 (13:55→21:03)
[2022-01-10] MEDS: Clopidogrel Bisulfate 75 MG TAB PO SCH (13:55)
[2022-01-10] MEDS: Saccharomyces boulardii 250 MG CAP PO SCH (13:57)
[2022-01-10] MEDS: Timolol 0.5% Ophth Soln 5 ml Bottle EA EYE SCH ×2 (13:57→21:12)
[2022-01-10] MEDS: Polyethylene Glycol 3350 17 GM Packet PO SCH (13:57)
[2022-01-10] MEDS: Losartan 25 MG TAB PO SCH (13:57)
[2022-01-10] MEDS: Dorzolamide HCl 2% Ophth Soln 10 ml Bottle EA EYE SCH ×2 (13:58→21:12)
[2022-01-10] MEDS: Famotidine 20 MG TAB PO SCH (13:58)
[2022-01-10] MEDS: Epoetin (ESRD) 10,000 UNITS/ML VIAL SC SCH (16:28)
[2022-01-10] MEDS: Zolpidem Tartrate 5 MG TAB PO SCH (21:02)
[2022-01-10] MEDS: Sodium Chloride 0.9% 1,000 ML IV SCH (22:55)
[2022-01-11] MEDS: Sodium Chloride 0.9% 1,000 ML IV SCH (05:47)
[2022-01-11] MEDS: HYDROcodone/Acetaminophen 5/325 mg Tablet PO PRN (05:47)
[2022-01-11] MEDS: HumaLOG 300 UNITS/3 ML VIAL SC PRN (05:51)
[2022-01-11 06:32] LABS: Eosinophils 4 % (0-10); Hemoglobin 8.4 g/dL (14.0-18.0); Lymphocytes 17 % (21-51); MDiff Complete? YES; Mean Corpuscular HGB CONC 31.7 g/dL (32.0-36.0); Mean Corpuscular Hemoglobin 30.1 pg (27.0-31.0); Mean Corpuscular Volume 94.9 fL (78.0-98.0); Mean Platelet Volume 7.6 fL (7.4-10.4); Monocytes 7 % (0-10); Neutrophil 71 % (42-75); Platelet Count 141 thou/uL (130-400); RBC Distribution Width 14.7 % (11.5-14.5); White Blood Cell (WBC) Count 8.9 thou/uL (4.8-10.8)
[2022-01-11 07:59] VITALS: BP 130/57; TEMP 99
[2022-01-11 08:12] LABS: Chloride 120 mmol/L (98-107); Sodium 139 mmol/L (136-145)
[2022-01-11 08:13] LABS: Glucose 107 mg/dL (83-110)
[2022-01-11 08:15] LABS: Anion Gap 6 mmol/L (10-20); Carbon Dioxide 15 mmol/L (23-31)
[2022-01-11 08:17] LABS: Calc. Creatinine Clearance 23 mL/min (70-130)
[2022-01-11 08:18] LABS: BUN (Urea Nitrogen) 21 mg/dL (8.4-25.7)
[2022-01-11] MEDS: Timolol 0.5% Ophth Soln 5 ml Bottle EA EYE SCH (09:31)
[2022-01-11] MEDS: Dorzolamide HCl 2% Ophth Soln 10 ml Bottle EA EYE SCH (09:32)
[2022-01-11] MEDS: cloNIDine 0.1 MG TAB PO SCH (09:32)
[2022-01-11] MEDS: Gabapentin 100 MG CAP PO SCH (09:32)
[2022-01-11] MEDS: Sevelamer Carbonate 800 MG TAB PO SCH ×2 (09:32→12:33)
[2022-01-11] MEDS: Clopidogrel Bisulfate 75 MG TAB PO SCH (09:33)
[2022-01-11] MEDS: Aspirin 81 mg Enteric Coated Tablet PO SCH (09:33)
[2022-01-11] MEDS: Losartan 25 MG TAB PO SCH (09:33)
[2022-01-11] MEDS: Carvedilol 6.25 MG TAB PO SCH (09:33)
[2022-01-11] MEDS: Insulin Glargine 30 UNITS/0.3 ML VIAL SC SCH (09:33)
[2022-01-11] MEDS: Heparin 5,000 UNITS/ML VIAL SC SCH (09:34)
[2022-01-11] MEDS: Saccharomyces boulardii 250 MG CAP PO SCH (09:36)
[2022-01-11] MEDS: Polyethylene Glycol 3350 17 GM Packet PO SCH (09:36)
[2022-01-11] MEDS: Famotidine 20 MG TAB PO SCH (09:55)
[2022-01-11 10:44] LABS: Potassium 4.2 mmol/L (3.5-5.1)
== END 2022-01-11 14:15 | DRG 474 ==
LOC: ERS 20:32 → ERHOLD 23:53 → 2NO 01-03 12:27 → T4-A 01-05 11:35
PROVIDERS: ADMIT Family Medicine; ATTEND Internal Medicine
PROC: 5A1D70Z Performance of Urinary Filtration, Intermittent, Less than 6 Hours Per Day (ICD-10-PCS; 2022-01-03)
PROC: 0Y6D0Z1 Detachment at Left Upper Leg, High, Open Approach (ICD-10-PCS; principal; 2022-01-07)
PROC: 30233N1 Transfusion of Nonautologous Red Blood Cells into Peripheral Vein, Percutaneous Approach (ICD-10-PCS; 2022-01-07)
DX: T87.44 Infection of amputation stump, left lower extremity (principal); L89.153 Pressure ulcer of sacral region, stage 3; N18.6 End stage renal disease; A41.9 Sepsis, unspecified organism; E11.52 Type 2 diabetes mellitus with diabetic peripheral angiopathy with gangrene; J90 Pleural effusion, not elsewhere classified; M86.8X6 Other osteomyelitis, lower leg; D63.1 Anemia in chronic kidney disease; Y83.8 Other surgical procedures as the cause of abnormal reaction of the patient, or of later complication, without mention of misadventure at the time of the procedure; T87.54 Necrosis of amputation stump, left lower extremity; E11.22 Type 2 diabetes mellitus with diabetic chronic kidney disease; N28.89 Other specified disorders of kidney and ureter; R33.9 Retention of urine, unspecified; E11.69 Type 2 diabetes mellitus with other specified complication; E78.5 Hyperlipidemia, unspecified; I25.10 Atherosclerotic heart disease of native coronary artery without angina pectoris; Z20.822 Contact with and (suspected) exposure to COVID-19; Z99.2 Dependence on renal dialysis; Z95.810 Presence of automatic (implantable) cardiac defibrillator; Z87.01 Personal history of pneumonia (recurrent); Z88.5 Allergy status to narcotic agent; Z79.82 Long term (current) use of aspirin; Z79.02 Long term (current) use of antithrombotics/antiplatelets; Z79.899 Other long term (current) drug therapy; Z79.4 Long term (current) use of insulin; Z79.2 Long term (current) use of antibiotics; Z82.49 Family history of ischemic heart disease and other diseases of the circulatory system; I25.2 Old myocardial infarction; Z89.511 Acquired absence of right leg below knee; Z84.1 Family history of disorders of kidney and ureter; Z91.15 Patient's noncompliance with renal dialysis
CPT/HCPCS: 36415; 36416; 36430; 70450; 71045; 71250; 80048; 80053; 80202; 82805; 83605; 83690; 84145; 85025; 86850; 86900; 86901; 87040; 88307; 88311; 90935; 93005; 96361; 96365; 96375; G0257; J0692; J1644; J1815; J2270; J3370; J3490; J7050; P9016; Q4081; U0002; U0003; U0005

== ENCOUNTER 2022-02-05 21:06 | Inpatient (IN) | payer MEDICARE ==
[2022-02-05 22:05] LABS: #Lymphocytes 0.7 thou/uL (1.20-3.40); #Monocytes 1.3 thou/uL (0.11-0.59); #Neutrophils 17.8 thou/uL (1.40-6.50); %Basophils 0.2 % (0.0-1.0); %Eosinophils 0.2 % (0.0-10.0); %Lymphocytes 3.4 % (21.0-51.0); %Monocytes 6.6 % (0.0-10.0); %Neutrophils 89.6 % (42.0-75.0); Hemoglobin 9.7 g/dL (14.0-18.0); Mean Corpuscular HGB CONC 31.6 g/dL (32.0-36.0); Mean Corpuscular Volume 95.2 fL (78.0-98.0); Mean Platelet Volume 8.1 fL (7.4-10.4); Platelet Count 167 thou/uL (130-400); RBC Distribution Width 14.1 % (11.5-14.5); Red Blood Cell (RBC) Count 3.24 mill/uL (4.70-6.10); White Blood Cell (WBC) Count 19.9 thou/uL (4.8-10.8)
[2022-02-05 22:28] LABS: ALT (SGPT) 18 U/L (8-55); AST (SGOT) 19 U/L (5-34); Albumin 2.9 g/dL (3.4-4.8); Alkaline Phosphatase 292 U/L (40-110); Anion Gap 19 mmol/L (10-20); BUN (Urea Nitrogen) 28 mg/dL (8.4-25.7); Bilirubin, Total 0.9 mg/dL (0.2-1.2); Calc. Creatinine Clearance 0 mL/min (70-130); Calcium 10.4 mg/dL (7.8-10.44); Carbon Dioxide 26 mmol/L (23-31); Chloride 96 mmol/L (98-107); Estimated GFR 9; Globulin 5.6 g/dL (2.4-3.5); Glucose 214 mg/dL (83-110); Lipase 6 U/L (8-78); Potassium 3.8 mmol/L (3.5-5.1); Protein, Total 8.5 g/dL (5.8-8.1); Sodium 137 mmol/L (136-145)
[2022-02-05 22:48] LABS: CKMB 0.9 ng/mL (0-6.6)
[2022-02-05] MEDS ORDERED: Vancomycin 25 MG/ML Oral SOLN PO SCH (23:45)
[2022-02-06] MEDS ORDERED: Ondansetron PF 4 MG/2 ML Vial IVP PRN (00:03)
[2022-02-06] MEDS ORDERED: Acetaminophen 650 MG Suppository PR PRN (00:03)
[2022-02-06] MEDS ORDERED: [UNRECOGNIZED DRUG - REMARK] FS SCH (00:03)
[2022-02-06] MEDS ORDERED: Ondansetron ODT 4 MG TAB PO PRN (00:03)
[2022-02-06 01:15] LABS: Troponin I 0.061 ng/mL (< 0.028)
[2022-02-06 04:15] LABS: Anion Gap 19 mmol/L (10-20); BUN (Urea Nitrogen) 33 mg/dL (8.4-25.7); Calc. Creatinine Clearance 0 mL/min (70-130); Calcium 10.2 mg/dL (7.8-10.44); Carbon Dioxide 25 mmol/L (23-31); Chloride 96 mmol/L (98-107); Estimated GFR 9; Glucose 270 mg/dL (83-110); Sodium 136 mmol/L (136-145)
[2022-02-06 04:21] LABS: Troponin I 0.046 ng/mL (< 0.028)
[2022-02-06 05:31] LABS: Band 3 % (5-11); Hemoglobin 9.3 g/dL (14.0-18.0); Hypochromia SLIGHT = 6-15 cells (100X) (0-5/hpf); Lymphocytes 5 % (21-51); MDiff Complete? YES; Mean Corpuscular HGB CONC 32.4 g/dL (32.0-36.0); Mean Corpuscular Volume 95.9 fL (78.0-98.0); Monocytes 18 % (0-10); Neutrophil 74 % (42-75); Platelet Count 154 thou/uL (130-400); Platelet Morphology Comment Appears Adequate; Red Blood Cell (RBC) Count 3.01 mill/uL (4.70-6.10); White Blood Cell (WBC) Count 20.4 thou/uL (4.8-10.8)
[2022-02-06] MEDS: Vancomycin 25 MG/ML Oral SOLN PO SCH ×3 (09:04→19:54)
[2022-02-06] MEDS: Heparin 5,000 UNITS/ML VIAL SC SCH ×3 (09:04→19:52)
[2022-02-06] MEDS ORDERED: hydrALAZINE 20 MG/ML VIAL ONE (14:18)
[2022-02-06] MEDS: hydrALAZINE 20 MG/ML VIAL SLOW IVP PRN ×2 (14:19→23:19)
[2022-02-06] MEDS ORDERED: Sevelamer Carbonate 800 MG TAB PO SCH (15:00)
[2022-02-06] MEDS ORDERED: Piperacillin/Tazobactam 4.5 GM in Sodium Chloride 0.9% 100 ML IVPB SCH (16:45)
[2022-02-06] MEDS ORDERED: Piperacillin/Tazobactam 3.375 GM in Sodium Chloride 0.9% 100 ML IVPB SCH ×2 (16:45→17:15)
[2022-02-06] MEDS: Carvedilol 25 MG TAB PO SCH (17:16)
[2022-02-06] MEDS: Sevelamer Carbonate 800 MG TAB PO SCH (17:16)
[2022-02-06] MEDS: Gabapentin 100 MG CAP PO SCH ×2 (17:17→19:52)
[2022-02-06] MEDS: Atorvastatin Calcium 20 MG TAB PO SCH (19:52)
[2022-02-06] MEDS: Epoetin (ESRD) 10,000 UNITS/ML VIAL SC SCH (19:52)
[2022-02-06] MEDS: Piperacillin/Tazobactam 3.375 GM in Sodium Chloride 0.9% 100 ML IVPB SCH (19:53)
[2022-02-06] MEDS: Acetaminophen 325 MG TAB PO PRN (23:16)
[2022-02-07] MEDS: Vancomycin 25 MG/ML Oral SOLN PO SCH ×4 (00:01→22:23)
[2022-02-07 09:09] LABS: Anion Gap 19 mmol/L (10-20); BUN (Urea Nitrogen) 45 mg/dL (8.4-25.7); Calc. Creatinine Clearance 7 mL/min (70-130); Calcium 10.1 mg/dL (7.8-10.44); Carbon Dioxide 23 mmol/L (23-31); Chloride 97 mmol/L (98-107); Estimated GFR 7; Glucose 131 mg/dL (83-110); Potassium 3.8 mmol/L (3.5-5.1); Sodium 135 mmol/L (136-145)
[2022-02-07 09:29] LABS: Mean Corpuscular Hemoglobin 29.5 pg (27.0-31.0); Mean Corpuscular Volume 95.1 fL (78.0-98.0); Platelet Count 171 thou/uL (130-400); RBC Distribution Width 13.8 % (11.5-14.5); Red Blood Cell (RBC) Count 3.04 mill/uL (4.70-6.10); White Blood Cell (WBC) Count 11.9 thou/uL (4.8-10.8)
[2022-02-07 10:27] LABS: Band 5 % (5-11); Eosinophils 1 % (0-10); Hypochromia SLIGHT = 6-15 cells (100X) (0-5/hpf); Lymphocytes 5 % (21-51); MDiff Complete? YES; Monocytes 6 % (0-10); Neutrophil 83 % (42-75); Platelet Morphology Comment Appears Adequate; Polychromasia SLIGHT = 2-3 cells (100X) (0-2/hpf)
[2022-02-07] MEDS: Piperacillin/Tazobactam 3.375 GM in Sodium Chloride 0.9% 100 ML IVPB SCH ×2 (11:08→22:24)
[2022-02-07] MEDS: Carvedilol 25 MG TAB PO SCH ×2 (11:10→18:42)
[2022-02-07] MEDS: Aspirin 81 mg Enteric Coated Tablet PO SCH (11:12)
[2022-02-07] MEDS: Sevelamer Carbonate 800 MG TAB PO SCH ×3 (11:12→22:23)
[2022-02-07] MEDS: Losartan 25 MG TAB PO SCH (11:12)
[2022-02-07] MEDS: Clopidogrel Bisulfate 75 MG TAB PO SCH (11:12)
[2022-02-07] MEDS: Heparin 5,000 UNITS/ML VIAL SC SCH ×3 (11:13→22:25)
[2022-02-07] MEDS: Gabapentin 100 MG CAP PO SCH ×3 (11:13→22:23)
[2022-02-07] MEDS: Acetaminophen 325 MG TAB PO PRN (12:19)
[2022-02-07] MEDS: Atorvastatin Calcium 20 MG TAB PO SCH (22:23)
[2022-02-07] MEDS: HYDROcodone/Acetaminophen 5/325 mg Tablet PO PRN (22:29)
[2022-02-08] MEDS: Vancomycin 25 MG/ML Oral SOLN PO SCH ×4 (00:11→18:13)
[2022-02-08 04:30] LABS: #Eosinphils 0.1 thou/uL (0.0-0.7); #Lymphocytes 1.4 thou/uL (1.20-3.40); #Monocytes 1.2 thou/uL (0.11-0.59); #Neutrophils 6.9 thou/uL (1.40-6.50); %Basophils 0.2 % (0.0-1.0); %Eosinophils 0.8 % (0.0-10.0); %Lymphocytes 14.1 % (21.0-51.0); %Monocytes 12.9 % (0.0-10.0); Hemoglobin 8.8 g/dL (14.0-18.0); Mean Corpuscular HGB CONC 31.3 g/dL (32.0-36.0); Mean Corpuscular Hemoglobin 30.4 pg (27.0-31.0); Mean Corpuscular Volume 97.1 fL (78.0-98.0); Mean Platelet Volume 8.2 fL (7.4-10.4); Platelet Count 160 thou/uL (130-400); Red Blood Cell (RBC) Count 2.91 mill/uL (4.70-6.10); White Blood Cell (WBC) Count 9.6 thou/uL (4.8-10.8)
[2022-02-08 04:55] LABS: Anion Gap 15 mmol/L (10-20); BUN (Urea Nitrogen) 20 mg/dL (8.4-25.7); Calc. Creatinine Clearance 12 mL/min (70-130); Calcium 9.8 mg/dL (7.8-10.44); Carbon Dioxide 30 mmol/L (23-31); Chloride 97 mmol/L (98-107); Estimated GFR 13; Glucose 130 mg/dL (83-110); Potassium 3.6 mmol/L (3.5-5.1); Sodium 138 mmol/L (136-145)
[2022-02-08] MEDS: Carvedilol 25 MG TAB PO SCH ×2 (10:10→18:13)
[2022-02-08] MEDS: Sevelamer Carbonate 800 MG TAB PO SCH ×3 (10:11→18:13)
[2022-02-08] MEDS: Gabapentin 100 MG CAP PO SCH ×3 (10:12→20:38)
[2022-02-08] MEDS: Clopidogrel Bisulfate 75 MG TAB PO SCH (10:12)
[2022-02-08] MEDS: Aspirin 81 mg Enteric Coated Tablet PO SCH (10:12)
[2022-02-08] MEDS: Floranex 1 GM Packet PO SCH (10:12)
[2022-02-08] MEDS: Heparin 5,000 UNITS/ML VIAL SC SCH ×3 (10:13→20:38)
[2022-02-08] MEDS: Losartan 25 MG TAB PO SCH (10:13)
[2022-02-08] MEDS: Piperacillin/Tazobactam 3.375 GM in Sodium Chloride 0.9% 100 ML IVPB SCH ×3 (10:14→20:39)
[2022-02-08] MEDS: Atorvastatin Calcium 20 MG TAB PO SCH (20:39)
[2022-02-09] MEDS: Vancomycin 25 MG/ML Oral SOLN PO SCH ×5 (01:13→23:43)
[2022-02-09] MEDS ORDERED: Dextrose 5% in Water 1,000 ML IV PRN (06:45)
[2022-02-09] MEDS ORDERED: Dextrose 50% Abboject 50 ML SYRINGE IVP PRN (06:45)
[2022-02-09 06:48] LABS: Anion Gap 18 mmol/L (10-20); BUN (Urea Nitrogen) 31 mg/dL (8.4-25.7); Calc. Creatinine Clearance 9 mL/min (70-130); Calcium 10.3 mg/dL (7.8-10.44); Carbon Dioxide 28 mmol/L (23-31); Chloride 94 mmol/L (98-107); Estimated GFR 8; Glucose 250 mg/dL (83-110); Potassium 3.7 mmol/L (3.5-5.1); Sodium 136 mmol/L (136-145)
[2022-02-09 07:34] LABS: Hemoglobin 8.9 g/dL (14.0-18.0); Mean Corpuscular HGB CONC 31.6 g/dL (32.0-36.0); Mean Corpuscular Hemoglobin 29.7 pg (27.0-31.0); Mean Corpuscular Volume 94.1 fL (78.0-98.0); Mean Platelet Volume 8.4 fL (7.4-10.4); Platelet Count 152 thou/uL (130-400); RBC Distribution Width 13.9 % (11.5-14.5); Red Blood Cell (RBC) Count 3.01 mill/uL (4.70-6.10); White Blood Cell (WBC) Count 8.3 thou/uL (4.8-10.8)
[2022-02-09] MEDS: HumaLOG 300 UNITS/3 ML VIAL SC PRN ×2 (07:48→11:01)
[2022-02-09 08:45] LABS: Band 7 % (5-11); Eosinophils 2 % (0-10); Hypochromia SLIGHT = 6-15 cells (100X) (0-5/hpf); Lymphocytes 12 % (21-51); MDiff Complete? YES; Metamyelocyte 1 % (0-0); Monocytes 16 % (0-10); Neutrophil 61 % (42-75); Platelet Morphology Comment Appears Adequate; Polychromasia SLIGHT = 2-3 cells (100X) (0-2/hpf)
[2022-02-09] MEDS: Heparin 5,000 UNITS/ML VIAL SC SCH ×3 (09:27→19:23)
[2022-02-09] MEDS: Piperacillin/Tazobactam 3.375 GM in Sodium Chloride 0.9% 100 ML IVPB SCH ×2 (09:27→19:22)
[2022-02-09] MEDS: Sevelamer Carbonate 800 MG TAB PO SCH ×3 (09:28→17:35)
[2022-02-09] MEDS: Clopidogrel Bisulfate 75 MG TAB PO SCH (09:29)
[2022-02-09] MEDS: Gabapentin 100 MG CAP PO SCH ×3 (09:29→19:22)
[2022-02-09] MEDS: Losartan 25 MG TAB PO SCH (09:29)
[2022-02-09] MEDS: Aspirin 81 mg Enteric Coated Tablet PO SCH (09:30)
[2022-02-09] MEDS: Floranex 1 GM Packet PO SCH (09:30)
[2022-02-09] MEDS: Carvedilol 25 MG TAB PO SCH ×2 (09:30→17:08)
[2022-02-09] MEDS: Atorvastatin Calcium 20 MG TAB PO SCH (19:22)
[2022-02-09] MEDS: Acetaminophen 325 MG TAB PO PRN (19:22)
[2022-02-09] MEDS: HYDROcodone/Acetaminophen 5/325 mg Tablet PO PRN (20:41)
[2022-02-10] MEDS: Vancomycin 25 MG/ML Oral SOLN PO SCH ×3 (05:27→17:23)
[2022-02-10] MEDS: hydrALAZINE 20 MG/ML VIAL SLOW IVP PRN (05:28)
[2022-02-10] MEDS: HumaLOG 300 UNITS/3 ML VIAL SC PRN ×2 (05:31→17:23)
[2022-02-10] MEDS: Carvedilol 25 MG TAB PO SCH ×2 (10:19→16:18)
[2022-02-10] MEDS: Sevelamer Carbonate 800 MG TAB PO SCH ×3 (10:19→16:18)
[2022-02-10] MEDS: Aspirin 81 mg Enteric Coated Tablet PO SCH (10:19)
[2022-02-10] MEDS: Clopidogrel Bisulfate 75 MG TAB PO SCH (10:19)
[2022-02-10] MEDS: Floranex 1 GM Packet PO SCH (10:20)
[2022-02-10] MEDS: Gabapentin 100 MG CAP PO SCH ×3 (10:20→21:05)
[2022-02-10] MEDS: Losartan 25 MG TAB PO SCH (10:20)
[2022-02-10] MEDS: Heparin 5,000 UNITS/ML VIAL SC SCH ×3 (10:21→21:06)
[2022-02-10] MEDS: Piperacillin/Tazobactam 3.375 GM in Sodium Chloride 0.9% 100 ML IVPB SCH ×2 (10:21→21:08)
[2022-02-10] MEDS: Atorvastatin Calcium 20 MG TAB PO SCH (21:05)
[2022-02-11] MEDS: Vancomycin 25 MG/ML Oral SOLN PO SCH ×5 (00:15→23:40)
[2022-02-11] MEDS: hydrALAZINE 20 MG/ML VIAL SLOW IVP PRN (00:24)
[2022-02-11 04:52] LABS: #Basophils 0.1 thou/uL (0.0-0.2); #Eosinphils 0.3 thou/uL (0.0-0.7); #Lymphocytes 1.5 thou/uL (1.20-3.40); #Monocytes 0.9 thou/uL (0.11-0.59); #Neutrophils 7.1 thou/uL (1.40-6.50); %Basophils 0.8 % (0.0-1.0); %Eosinophils 2.9 % (0.0-10.0); %Lymphocytes 15.6 % (21.0-51.0); %Monocytes 8.8 % (0.0-10.0); %Neutrophils 71.9 % (42.0-75.0); Hemoglobin 8.8 g/dL (14.0-18.0); Mean Corpuscular HGB CONC 31.8 g/dL (32.0-36.0); Mean Corpuscular Hemoglobin 29.8 pg (27.0-31.0); Mean Corpuscular Volume 93.7 fL (78.0-98.0); Mean Platelet Volume 7.9 fL (7.4-10.4); Platelet Count 153 thou/uL (130-400); RBC Distribution Width 13.8 % (11.5-14.5); Red Blood Cell (RBC) Count 2.95 mill/uL (4.70-6.10); White Blood Cell (WBC) Count 9.9 thou/uL (4.8-10.8)
[2022-02-11 05:08] LABS: Anion Gap 18 mmol/L (10-20); BUN (Urea Nitrogen) 25 mg/dL (8.4-25.7); Calc. Creatinine Clearance 10 mL/min (70-130); Calcium 10.6 mg/dL (7.8-10.44); Carbon Dioxide 28 mmol/L (23-31); Chloride 94 mmol/L (98-107); Estimated GFR 9; Glucose 134 mg/dL (83-110); Potassium 3.9 mmol/L (3.5-5.1); Sodium 136 mmol/L (136-145)
[2022-02-11] MEDS: Carvedilol 25 MG TAB PO SCH ×2 (09:33→16:30)
[2022-02-11] MEDS: Sevelamer Carbonate 800 MG TAB PO SCH ×3 (09:33→16:31)
[2022-02-11] MEDS: Gabapentin 100 MG CAP PO SCH ×3 (09:33→20:56)
[2022-02-11] MEDS: Heparin 5,000 UNITS/ML VIAL SC SCH ×3 (09:33→20:58)
[2022-02-11] MEDS: Floranex 1 GM Packet PO SCH (12:51)
[2022-02-11] MEDS: Losartan 25 MG TAB PO SCH (12:51)
[2022-02-11] MEDS: Clopidogrel Bisulfate 75 MG TAB PO SCH (12:51)
[2022-02-11] MEDS: Aspirin 81 mg Enteric Coated Tablet PO SCH (12:51)
[2022-02-11] MEDS: HYDROcodone/Acetaminophen 5/325 mg Tablet PO PRN (14:18)
[2022-02-11] MEDS: Piperacillin/Tazobactam 3.375 GM in Sodium Chloride 0.9% 100 ML IVPB SCH (16:31)
[2022-02-11] MEDS: HumaLOG 300 UNITS/3 ML VIAL SC PRN (16:32)
[2022-02-11] MEDS: cloNIDine 0.1 MG TAB PO SCH (20:57)
[2022-02-11] MEDS: Atorvastatin Calcium 20 MG TAB PO SCH (20:57)
[2022-02-12] MEDS: Acetaminophen 325 MG TAB PO PRN ×2 (03:14→16:25)
[2022-02-12 04:49] LABS: #Basophils 0.1 thou/uL (0.0-0.2); #Eosinphils 0.2 thou/uL (0.0-0.7); #Lymphocytes 1.1 thou/uL (1.20-3.40); #Monocytes 0.8 thou/uL (0.11-0.59); #Neutrophils 8.4 thou/uL (1.40-6.50); %Basophils 0.6 % (0.0-1.0); %Lymphocytes 10.6 % (21.0-51.0); %Monocytes 7.8 % (0.0-10.0); Hemoglobin 8.9 g/dL (14.0-18.0); Mean Corpuscular HGB CONC 31.7 g/dL (32.0-36.0); Mean Corpuscular Hemoglobin 30.1 pg (27.0-31.0); Mean Corpuscular Volume 94.8 fL (78.0-98.0); Platelet Count 169 thou/uL (130-400); RBC Distribution Width 14.1 % (11.5-14.5); Red Blood Cell (RBC) Count 2.94 mill/uL (4.70-6.10); White Blood Cell (WBC) Count 10.6 thou/uL (4.8-10.8)
[2022-02-12 05:05] LABS: Anion Gap 16 mmol/L (10-20); BUN (Urea Nitrogen) 16 mg/dL (8.4-25.7); Calc. Creatinine Clearance 12 mL/min (70-130); Calcium 10.6 mg/dL (7.8-10.44); Carbon Dioxide 29 mmol/L (23-31); Chloride 94 mmol/L (98-107); Estimated GFR 13; Glucose 143 mg/dL (83-110); Sodium 135 mmol/L (136-145)
[2022-02-12] MEDS: Piperacillin/Tazobactam 3.375 GM in Sodium Chloride 0.9% 100 ML IVPB SCH ×2 (05:05→16:26)
[2022-02-12] MEDS: Vancomycin 25 MG/ML Oral SOLN PO SCH ×3 (06:18→22:21)
[2022-02-12] MEDS: cloNIDine 0.1 MG TAB PO SCH ×2 (09:35→22:21)
[2022-02-12] MEDS: Aspirin 81 mg Enteric Coated Tablet PO SCH (09:35)
[2022-02-12] MEDS: Losartan 25 MG TAB PO SCH (09:35)
[2022-02-12] MEDS: Clopidogrel Bisulfate 75 MG TAB PO SCH (09:35)
[2022-02-12] MEDS: Carvedilol 25 MG TAB PO SCH ×2 (09:35→16:24)
[2022-02-12] MEDS: Gabapentin 100 MG CAP PO SCH ×3 (09:35→22:21)
[2022-02-12] MEDS: Sevelamer Carbonate 800 MG TAB PO SCH ×3 (09:36→16:25)
[2022-02-12] MEDS: Floranex 1 GM Packet PO SCH (09:36)
[2022-02-12] MEDS: Heparin 5,000 UNITS/ML VIAL SC SCH ×3 (09:36→22:22)
[2022-02-12] MEDS: HumaLOG 300 UNITS/3 ML VIAL SC PRN (12:12)
[2022-02-12] MEDS: hydrALAZINE 20 MG/ML VIAL SLOW IVP PRN (12:13)
[2022-02-12] MEDS ORDERED: Acetaminophen 500 MG TAB PO SCH (20:30)
[2022-02-12] MEDS ORDERED: Acetaminophen 325 MG Suppository PR SCH (20:30)
[2022-02-12] MEDS ORDERED: Acetaminophen 650 MG Suppository PR SCH (20:30)
[2022-02-12] MEDS: Atorvastatin Calcium 20 MG TAB PO SCH (22:21)
[2022-02-13] MEDS: Vancomycin 25 MG/ML Oral SOLN PO SCH ×4 (00:24→18:20)
[2022-02-13] MEDS: Piperacillin/Tazobactam 3.375 GM in Sodium Chloride 0.9% 100 ML IVPB SCH ×2 (05:02→18:03)
[2022-02-13] MEDS: Acetaminophen 325 MG TAB PO PRN (05:03)
[2022-02-13] MEDS: HumaLOG 300 UNITS/3 ML VIAL SC PRN ×2 (06:02→19:14)
[2022-02-13] MEDS: HYDROcodone/Acetaminophen 5/325 mg Tablet PO PRN (10:08)
[2022-02-13] MEDS: Losartan 25 MG TAB PO SCH (10:09)
[2022-02-13] MEDS: Aspirin 81 mg Enteric Coated Tablet PO SCH (10:09)
[2022-02-13] MEDS: cloNIDine 0.1 MG TAB PO SCH ×2 (10:09→21:22)
[2022-02-13] MEDS: Carvedilol 25 MG TAB PO SCH ×2 (10:09→18:03)
[2022-02-13] MEDS: Clopidogrel Bisulfate 75 MG TAB PO SCH (10:10)
[2022-02-13] MEDS: Gabapentin 100 MG CAP PO SCH ×3 (10:10→21:22)
[2022-02-13] MEDS: Sevelamer Carbonate 800 MG TAB PO SCH ×3 (10:10→18:03)
[2022-02-13] MEDS: Floranex 1 GM Packet PO SCH (10:10)
[2022-02-13] MEDS: Heparin 5,000 UNITS/ML VIAL SC SCH ×3 (10:12→21:23)
[2022-02-13] MEDS: Epoetin (ESRD) 10,000 UNITS/ML VIAL SC SCH (18:03)
[2022-02-13] MEDS: Acetaminophen 500 MG TAB PO SCH (18:03)
[2022-02-13] MEDS: Atorvastatin Calcium 20 MG TAB PO SCH (21:22)
[2022-02-14] MEDS: Vancomycin 25 MG/ML Oral SOLN PO SCH ×5 (00:07→23:48)
[2022-02-14] MEDS: Acetaminophen 500 MG TAB PO SCH ×5 (00:07→23:48)
[2022-02-14 05:02] LABS: #Eosinphils 0.5 thou/uL (0.0-0.7); #Lymphocytes 1.8 thou/uL (1.20-3.40); #Monocytes 1.4 thou/uL (0.11-0.59); #Neutrophils 12.2 thou/uL (1.40-6.50); %Basophils 0.3 % (0.0-1.0); %Eosinophils 3.3 % (0.0-10.0); %Lymphocytes 11.4 % (21.0-51.0); %Monocytes 8.9 % (0.0-10.0); %Neutrophils 76.1 % (42.0-75.0); Hemoglobin 8.6 g/dL (14.0-18.0); Mean Corpuscular Hemoglobin 30.3 pg (27.0-31.0); Mean Corpuscular Volume 94.9 fL (78.0-98.0); Mean Platelet Volume 8.7 fL (7.4-10.4); Platelet Count 185 thou/uL (130-400); RBC Distribution Width 14.2 % (11.5-14.5); Red Blood Cell (RBC) Count 2.82 mill/uL (4.70-6.10); White Blood Cell (WBC) Count 16.1 thou/uL (4.8-10.8)
[2022-02-14] MEDS: Piperacillin/Tazobactam 3.375 GM in Sodium Chloride 0.9% 100 ML IVPB SCH ×2 (05:50→19:22)
[2022-02-14] MEDS: Sevelamer Carbonate 800 MG TAB PO SCH ×3 (08:58→19:25)
[2022-02-14] MEDS: Carvedilol 25 MG TAB PO SCH ×2 (08:58→19:29)
[2022-02-14] MEDS: Heparin 5,000 UNITS/ML VIAL SC SCH ×3 (08:58→20:37)
[2022-02-14] MEDS: Clopidogrel Bisulfate 75 MG TAB PO SCH (08:59)
[2022-02-14] MEDS: Gabapentin 100 MG CAP PO SCH ×3 (08:59→20:37)
[2022-02-14] MEDS: cloNIDine 0.1 MG TAB PO SCH ×2 (09:00→20:37)
[2022-02-14] MEDS: Losartan 25 MG TAB PO SCH (09:00)
[2022-02-14] MEDS: Aspirin 81 mg Enteric Coated Tablet PO SCH (09:00)
[2022-02-14] MEDS: Floranex 1 GM Packet PO SCH (09:01)
[2022-02-14] MEDS ORDERED: Benzonatate 100 MG CAP PO PRN (13:01)
[2022-02-14] MEDS: HumaLOG 300 UNITS/3 ML VIAL SC PRN (13:27)
[2022-02-14] MEDS: Atorvastatin Calcium 20 MG TAB PO SCH (20:37)
[2022-02-15] MEDS: Piperacillin/Tazobactam 3.375 GM in Sodium Chloride 0.9% 100 ML IVPB SCH ×2 (06:02→16:01)
[2022-02-15] MEDS: HumaLOG 300 UNITS/3 ML VIAL SC PRN ×3 (06:02→18:48)
[2022-02-15] MEDS: Vancomycin 25 MG/ML Oral SOLN PO SCH ×3 (06:03→18:47)
[2022-02-15] MEDS: Acetaminophen 500 MG TAB PO SCH ×3 (06:03→18:47)
[2022-02-15] MEDS: Losartan 25 MG TAB PO SCH (10:10)
[2022-02-15] MEDS: Sevelamer Carbonate 800 MG TAB PO SCH ×3 (10:10→16:01)
[2022-02-15] MEDS: Carvedilol 25 MG TAB PO SCH ×2 (10:10→16:01)
[2022-02-15] MEDS: Gabapentin 100 MG CAP PO SCH ×3 (10:10→20:50)
[2022-02-15] MEDS: cloNIDine 0.1 MG TAB PO SCH ×2 (10:11→20:50)
[2022-02-15] MEDS: Aspirin 81 mg Enteric Coated Tablet PO SCH (10:11)
[2022-02-15] MEDS: Heparin 5,000 UNITS/ML VIAL SC SCH ×3 (10:12→20:50)
[2022-02-15] MEDS: Clopidogrel Bisulfate 75 MG TAB PO SCH (10:12)
[2022-02-15] MEDS: Floranex 1 GM Packet PO SCH (12:37)
[2022-02-15] MEDS: Atorvastatin Calcium 20 MG TAB PO SCH (20:50)
[2022-02-16] MEDS: Acetaminophen 500 MG TAB PO SCH ×5 (00:02→23:37)
[2022-02-16] MEDS: Vancomycin 25 MG/ML Oral SOLN PO SCH (00:04)
[2022-02-16 05:08] LABS: #Eosinphils 0.3 thou/uL (0.0-0.7); #Lymphocytes 1.6 thou/uL (1.20-3.40); #Monocytes 0.5 thou/uL (0.11-0.59); #Neutrophils 5.1 thou/uL (1.40-6.50); %Basophils 0.4 % (0.0-1.0); %Eosinophils 4.4 % (0.0-10.0); %Lymphocytes 20.7 % (21.0-51.0); %Monocytes 7.2 % (0.0-10.0); %Neutrophils 67.3 % (42.0-75.0); Hemoglobin 9.1 g/dL (14.0-18.0); Mean Corpuscular HGB CONC 31.8 g/dL (32.0-36.0); Mean Corpuscular Hemoglobin 29.6 pg (27.0-31.0); Mean Corpuscular Volume 93.1 fL (78.0-98.0); Mean Platelet Volume 8.3 fL (7.4-10.4); Platelet Count 238 thou/uL (130-400); RBC Distribution Width 13.9 % (11.5-14.5); Red Blood Cell (RBC) Count 3.07 mill/uL (4.70-6.10); White Blood Cell (WBC) Count 7.5 thou/uL (4.8-10.8)
[2022-02-16 05:38] LABS: Anion Gap 16 mmol/L (10-20); BUN (Urea Nitrogen) 38 mg/dL (8.4-25.7); Calc. Creatinine Clearance 8 mL/min (70-130); Calcium 10.5 mg/dL (7.8-10.44); Carbon Dioxide 30 mmol/L (23-31); Chloride 92 mmol/L (98-107); Estimated GFR 8; Glucose 170 mg/dL (83-110); Potassium 4.3 mmol/L (3.5-5.1); Sodium 134 mmol/L (136-145)
[2022-02-16] MEDS: Piperacillin/Tazobactam 3.375 GM in Sodium Chloride 0.9% 100 ML IVPB SCH ×2 (05:41→17:52)
[2022-02-16] MEDS: Sevelamer Carbonate 800 MG TAB PO SCH ×3 (08:20→18:04)
[2022-02-16] MEDS: Aspirin 81 mg Enteric Coated Tablet PO SCH (14:03)
[2022-02-16] MEDS: Gabapentin 100 MG CAP PO SCH ×3 (14:03→20:55)
[2022-02-16] MEDS: Clopidogrel Bisulfate 75 MG TAB PO SCH (14:04)
[2022-02-16] MEDS: Losartan 25 MG TAB PO SCH (14:04)
[2022-02-16] MEDS: cloNIDine 0.1 MG TAB PO SCH ×2 (14:05→20:55)
[2022-02-16] MEDS: Heparin 5,000 UNITS/ML VIAL SC SCH ×3 (14:05→20:56)
[2022-02-16] MEDS: Floranex 1 GM Packet PO SCH (15:36)
[2022-02-16] MEDS: Carvedilol 25 MG TAB PO SCH ×2 (15:36→18:04)
[2022-02-16] MEDS: HumaLOG 300 UNITS/3 ML VIAL SC PRN ×2 (17:52→21:07)
[2022-02-16] MEDS: Atorvastatin Calcium 20 MG TAB PO SCH (20:55)
[2022-02-16] MEDS: HYDROcodone/Acetaminophen 5/325 mg Tablet PO PRN (20:56)
[2022-02-17 04:33] LABS: #Eosinphils 0.3 thou/uL (0.0-0.7); #Lymphocytes 1.7 thou/uL (1.20-3.40); #Monocytes 0.8 thou/uL (0.11-0.59); #Neutrophils 6.1 thou/uL (1.40-6.50); %Basophils 0.2 % (0.0-1.0); %Eosinophils 3.4 % (0.0-10.0); %Monocytes 9.3 % (0.0-10.0); %Neutrophils 68.1 % (42.0-75.0); Hemoglobin 8.8 g/dL (14.0-18.0); Mean Corpuscular HGB CONC 32.2 g/dL (32.0-36.0); Mean Corpuscular Hemoglobin 29.8 pg (27.0-31.0); Mean Corpuscular Volume 92.3 fL (78.0-98.0); Mean Platelet Volume 7.9 fL (7.4-10.4); Platelet Count 268 thou/uL (130-400); RBC Distribution Width 14.1 % (11.5-14.5); Red Blood Cell (RBC) Count 2.96 mill/uL (4.70-6.10)
[2022-02-17 05:02] LABS: Anion Gap 15 mmol/L (10-20); BUN (Urea Nitrogen) 25 mg/dL (8.4-25.7); Calc. Creatinine Clearance 13 mL/min (70-130); Calcium 10.7 mg/dL (7.8-10.44); Carbon Dioxide 30 mmol/L (23-31); Chloride 95 mmol/L (98-107); Estimated GFR 13; Glucose 147 mg/dL (83-110); Potassium 4.2 mmol/L (3.5-5.1); Sodium 136 mmol/L (136-145)
[2022-02-17] MEDS: Piperacillin/Tazobactam 3.375 GM in Sodium Chloride 0.9% 100 ML IVPB SCH ×2 (05:35→17:00)
[2022-02-17] MEDS: HumaLOG 300 UNITS/3 ML VIAL SC PRN ×3 (05:35→17:02)
[2022-02-17] MEDS: Acetaminophen 500 MG TAB PO SCH ×3 (05:35→17:02)
[2022-02-17] MEDS: Gabapentin 100 MG CAP PO SCH ×3 (08:58→22:09)
[2022-02-17] MEDS: Floranex 1 GM Packet PO SCH (08:58)
[2022-02-17] MEDS: Sevelamer Carbonate 800 MG TAB PO SCH ×3 (08:58→17:02)
[2022-02-17] MEDS: Losartan 25 MG TAB PO SCH (08:59)
[2022-02-17] MEDS: Carvedilol 25 MG TAB PO SCH ×2 (08:59→17:01)
[2022-02-17] MEDS: cloNIDine 0.1 MG TAB PO SCH ×2 (09:00→22:09)
[2022-02-17] MEDS: Aspirin 81 mg Enteric Coated Tablet PO SCH (09:00)
[2022-02-17] MEDS: Clopidogrel Bisulfate 75 MG TAB PO SCH (09:00)
[2022-02-17] MEDS: Heparin 5,000 UNITS/ML VIAL SC SCH ×3 (09:08→22:10)
[2022-02-17] MEDS: Atorvastatin Calcium 20 MG TAB PO SCH (22:09)
[2022-02-18] MEDS: Acetaminophen 500 MG TAB PO SCH ×4 (00:18→18:02)
[2022-02-18] MEDS: hydrALAZINE 20 MG/ML VIAL SLOW IVP PRN (00:23)
[2022-02-18] MEDS: Piperacillin/Tazobactam 3.375 GM in Sodium Chloride 0.9% 100 ML IVPB SCH ×2 (05:19→18:02)
[2022-02-18] MEDS: HumaLOG 300 UNITS/3 ML VIAL SC PRN ×3 (05:20→18:02)
[2022-02-18] MEDS: Gabapentin 100 MG CAP PO SCH ×3 (08:36→21:19)
[2022-02-18] MEDS: Sevelamer Carbonate 800 MG TAB PO SCH ×3 (08:37→18:01)
[2022-02-18] MEDS: Losartan 25 MG TAB PO SCH (08:37)
[2022-02-18] MEDS: Aspirin 81 mg Enteric Coated Tablet PO SCH (08:38)
[2022-02-18] MEDS: Carvedilol 25 MG TAB PO SCH ×2 (08:38→18:01)
[2022-02-18] MEDS: Clopidogrel Bisulfate 75 MG TAB PO SCH (08:38)
[2022-02-18] MEDS: Floranex 1 GM Packet PO SCH (08:38)
[2022-02-18] MEDS: cloNIDine 0.1 MG TAB PO SCH ×2 (08:38→21:19)
[2022-02-18] MEDS: Heparin 5,000 UNITS/ML VIAL SC SCH ×3 (08:40→21:19)
[2022-02-18] MEDS: Atorvastatin Calcium 20 MG TAB PO SCH (21:19)
[2022-02-19] MEDS: Acetaminophen 500 MG TAB PO SCH ×5 (01:00→23:50)
[2022-02-19] MEDS: Piperacillin/Tazobactam 3.375 GM in Sodium Chloride 0.9% 100 ML IVPB SCH ×2 (05:53→17:33)
[2022-02-19] MEDS: HumaLOG 300 UNITS/3 ML VIAL SC PRN ×3 (05:54→17:31)
[2022-02-19] MEDS: Heparin 5,000 UNITS/ML VIAL SC SCH ×3 (08:40→19:45)
[2022-02-19] MEDS: Carvedilol 25 MG TAB PO SCH ×2 (08:59→17:33)
[2022-02-19] MEDS: Sevelamer Carbonate 800 MG TAB PO SCH ×3 (08:59→17:32)
[2022-02-19] MEDS: Clopidogrel Bisulfate 75 MG TAB PO SCH (09:01)
[2022-02-19] MEDS: Gabapentin 100 MG CAP PO SCH ×4 (09:01→19:45)
[2022-02-19] MEDS: Aspirin 81 mg Enteric Coated Tablet PO SCH (09:02)
[2022-02-19] MEDS: Losartan 25 MG TAB PO SCH (09:02)
[2022-02-19] MEDS: Floranex 1 GM Packet PO SCH (09:02)
[2022-02-19] MEDS: cloNIDine 0.1 MG TAB PO SCH ×2 (09:03→19:45)
[2022-02-19 09:22] LABS: Albumin 2.6 g/dL (3.4-4.8); Anion Gap 18 mmol/L (10-20); BUN (Urea Nitrogen) 30 mg/dL (8.4-25.7); BUN/Creatinine Ratio 6.36; Calc. Creatinine Clearance 12 mL/min (70-130); Calcium 10.8 mg/dL (7.8-10.44); Carbon Dioxide 23 mmol/L (23-31); Chloride 96 mmol/L (98-107); Estimated GFR 13; Glucose 267 mg/dL (83-110); Phosphorus 2.7 mg/dL (2.3-4.7); Potassium 4.3 mmol/L (3.5-5.1); Sodium 133 mmol/L (136-145)
[2022-02-19] MEDS ORDERED: Epoetin (ESRD) 20,000 UNITS/ML IVP SCH (09:30)
[2022-02-19] MEDS ORDERED: Sodium Chloride 0.9% 1,000 ML IV SCH (10:00)
[2022-02-19] MEDS: Cholestyramine/Aspartame 4 gm Packet PO SCH ×2 (10:36→23:50)
[2022-02-19] MEDS: hydrALAZINE 20 MG/ML VIAL SLOW IVP PRN (11:51)
[2022-02-19] MEDS: Epoetin (ESRD) 10,000 UNITS/ML VIAL IVP SCH (11:52)
[2022-02-19] MEDS: Morphine 2 MG/ML VIAL SLOW IVP PRN ×3 (14:33→23:49)
[2022-02-19] MEDS: Atorvastatin Calcium 20 MG TAB PO SCH (19:45)
[2022-02-20] MEDS ORDERED: Boudreaux's Butt Paste 60 GM TUBE TOP PRN (03:02)
[2022-02-20] MEDS ORDERED: Floranex 1 GM Packet PO SCH (04:00)
[2022-02-20] MEDS: Piperacillin/Tazobactam 3.375 GM in Sodium Chloride 0.9% 100 ML IVPB SCH ×2 (04:34→16:22)
[2022-02-20] MEDS: HumaLOG 300 UNITS/3 ML VIAL SC PRN ×2 (05:58→20:33)
[2022-02-20] MEDS: Acetaminophen 500 MG TAB PO SCH ×3 (05:59→17:04)
[2022-02-20] MEDS: Heparin 5,000 UNITS/ML VIAL SC SCH ×3 (08:42→20:34)
[2022-02-20] MEDS: Clopidogrel Bisulfate 75 MG TAB PO SCH (08:50)
[2022-02-20] MEDS: Sevelamer Carbonate 800 MG TAB PO SCH ×3 (08:50→16:22)
[2022-02-20] MEDS: Gabapentin 100 MG CAP PO SCH ×3 (08:50→20:30)
[2022-02-20] MEDS: Carvedilol 25 MG TAB PO SCH ×2 (08:50→16:22)
[2022-02-20] MEDS: Aspirin 81 mg Enteric Coated Tablet PO SCH (08:50)
[2022-02-20] MEDS: Losartan 25 MG TAB PO SCH (08:50)
[2022-02-20] MEDS: Floranex 1 GM Packet PO SCH ×2 (08:51→20:32)
[2022-02-20] MEDS: Cholestyramine/Aspartame 4 gm Packet PO SCH ×2 (08:51→22:27)
[2022-02-20] MEDS: cloNIDine 0.1 MG TAB PO SCH ×2 (08:52→20:29)
[2022-02-20] MEDS: Morphine 2 MG/ML VIAL SLOW IVP PRN ×3 (08:59→22:29)
[2022-02-20 10:10] LABS: Iron 39 ug/dL (65-175); Iron Binding Capacity, Total 145 mcg/dL (261-462)
[2022-02-20 10:27] LABS: Albumin 2.7 g/dL (3.4-4.8); Anion Gap 16 mmol/L (10-20); BUN (Urea Nitrogen) 42 mg/dL (8.4-25.7); BUN/Creatinine Ratio 7.02; Calc. Creatinine Clearance 10 mL/min (70-130); Calcium 11.1 mg/dL (7.8-10.44); Carbon Dioxide 26 mmol/L (23-31); Chloride 91 mmol/L (98-107); Estimated GFR 9; Glucose 197 mg/dL (83-110); Phosphorus 3.7 mg/dL (2.3-4.7); Potassium 4.6 mmol/L (3.5-5.1); Sodium 128 mmol/L (136-145)
[2022-02-20] MEDS: HYDROcodone/Acetaminophen 5/325 mg Tablet PO PRN ×2 (16:24→20:00)
[2022-02-20] MEDS: Vancomycin 25 MG/ML Oral SOLN PO SCH (17:43)
[2022-02-20] MEDS: Atorvastatin Calcium 20 MG TAB PO SCH (20:31)
[2022-02-20] MEDS: hydrALAZINE 20 MG/ML VIAL SLOW IVP PRN (20:33)
[2022-02-21] MEDS: Vancomycin 25 MG/ML Oral SOLN PO SCH ×4 (00:45→18:03)
[2022-02-21] MEDS: Acetaminophen 500 MG TAB PO SCH ×4 (00:46→18:03)
[2022-02-21] MEDS: Piperacillin/Tazobactam 3.375 GM in Sodium Chloride 0.9% 100 ML IVPB SCH ×2 (05:40→16:36)
[2022-02-21] MEDS: HumaLOG 300 UNITS/3 ML VIAL SC PRN ×3 (05:44→21:40)
[2022-02-21] MEDS: Carvedilol 25 MG TAB PO SCH ×2 (09:12→16:35)
[2022-02-21] MEDS: Clopidogrel Bisulfate 75 MG TAB PO SCH (09:12)
[2022-02-21] MEDS: Aspirin 81 mg Enteric Coated Tablet PO SCH (09:13)
[2022-02-21] MEDS: Cinacalcet HCl 30 MG TAB PO SCH (09:13)
[2022-02-21] MEDS: Gabapentin 100 MG CAP PO SCH ×3 (09:13→21:39)
[2022-02-21] MEDS: Sevelamer Carbonate 800 MG TAB PO SCH ×3 (09:13→16:36)
[2022-02-21] MEDS: cloNIDine 0.1 MG TAB PO SCH ×2 (09:14→21:38)
[2022-02-21] MEDS: Losartan 25 MG TAB PO SCH (09:14)
[2022-02-21] MEDS: Floranex 1 GM Packet PO SCH ×2 (09:15→22:50)
[2022-02-21] MEDS: Heparin 5,000 UNITS/ML VIAL SC SCH ×3 (09:15→21:40)
[2022-02-21] MEDS: Cholestyramine/Aspartame 4 gm Packet PO SCH ×2 (09:16→22:57)
[2022-02-21 10:24] LABS: Albumin 2.5 g/dL (3.4-4.8); Anion Gap 17 mmol/L (10-20); BUN (Urea Nitrogen) 53 mg/dL (8.4-25.7); BUN/Creatinine Ratio 7.58; Calc. Creatinine Clearance 8 mL/min (70-130); Calcium 11.1 mg/dL (7.8-10.44); Carbon Dioxide 25 mmol/L (23-31); Chloride 90 mmol/L (98-107); Estimated GFR 8; Glucose 177 mg/dL (83-110); Phosphorus 4.4 mg/dL (2.3-4.7); Potassium 5.1 mmol/L (3.5-5.1); Sodium 127 mmol/L (136-145)
[2022-02-21] MEDS: HYDROcodone/Acetaminophen 5/325 mg Tablet PO PRN (13:45)
[2022-02-21] MEDS: Atorvastatin Calcium 20 MG TAB PO SCH (21:38)
[2022-02-22] MEDS: Vancomycin 25 MG/ML Oral SOLN PO SCH ×4 (00:44→17:56)
[2022-02-22] MEDS: Acetaminophen 500 MG TAB PO SCH ×4 (00:44→17:57)
[2022-02-22] MEDS: Piperacillin/Tazobactam 3.375 GM in Sodium Chloride 0.9% 100 ML IVPB SCH ×2 (05:49→20:32)
[2022-02-22] MEDS: HumaLOG 300 UNITS/3 ML VIAL SC PRN ×4 (05:59→21:17)
[2022-02-22 06:10] LABS: #Eosinphils 0.2 thou/uL (0.0-0.7); #Monocytes 0.7 thou/uL (0.11-0.59); #Neutrophils 7.3 thou/uL (1.40-6.50); %Basophils 0.1 % (0.0-1.0); %Eosinophils 2.1 % (0.0-10.0); %Lymphocytes 10.9 % (21.0-51.0); %Monocytes 7.8 % (0.0-10.0); %Neutrophils 79.1 % (42.0-75.0); Hemoglobin 8.4 g/dL (14.0-18.0); Mean Corpuscular HGB CONC 31.8 g/dL (32.0-36.0); Mean Corpuscular Hemoglobin 30.2 pg (27.0-31.0); Mean Corpuscular Volume 94.9 fL (78.0-98.0); Mean Platelet Volume 8.1 fL (7.4-10.4); Platelet Count 272 thou/uL (130-400); RBC Distribution Width 15.4 % (11.5-14.5); White Blood Cell (WBC) Count 9.2 thou/uL (4.8-10.8)
[2022-02-22 06:43] LABS: Albumin 2.3 g/dL (3.4-4.8); BUN (Urea Nitrogen) 36 mg/dL (8.4-25.7); Calc. Creatinine Clearance 11 mL/min (70-130); Calcium 10.2 mg/dL (7.8-10.44); Carbon Dioxide 22 mmol/L (23-31); Chloride 94 mmol/L (98-107); Estimated GFR 11; Glucose 164 mg/dL (83-110); Potassium 5.2 mmol/L (3.5-5.1); Sodium 129 mmol/L (136-145)
[2022-02-22 07:37] LABS: Anion Gap 19 mmol/L (10-20)
[2022-02-22] MEDS: Cholestyramine/Aspartame 4 gm Packet PO SCH ×2 (09:28→21:18)
[2022-02-22] MEDS: Sevelamer Carbonate 800 MG TAB PO SCH ×3 (09:28→16:19)
[2022-02-22] MEDS: Floranex 1 GM Packet PO SCH ×2 (09:28→20:30)
[2022-02-22] MEDS: Cinacalcet HCl 30 MG TAB PO SCH (09:29)
[2022-02-22] MEDS: cloNIDine 0.1 MG TAB PO SCH ×2 (09:29→20:31)
[2022-02-22] MEDS: Gabapentin 100 MG CAP PO SCH ×3 (09:29→20:31)
[2022-02-22] MEDS: Aspirin 81 mg Enteric Coated Tablet PO SCH (09:29)
[2022-02-22] MEDS: Losartan 25 MG TAB PO SCH (09:30)
[2022-02-22] MEDS: Carvedilol 25 MG TAB PO SCH ×2 (09:30→16:19)
[2022-02-22] MEDS: Heparin 5,000 UNITS/ML VIAL SC SCH ×3 (09:30→20:31)
[2022-02-22] MEDS: Clopidogrel Bisulfate 75 MG TAB PO SCH (09:30)
[2022-02-22] MEDS: Epoetin (ESRD) 10,000 UNITS/ML VIAL IVP SCH (15:36)
[2022-02-22] MEDS: Atorvastatin Calcium 20 MG TAB PO SCH (20:30)
[2022-02-23] MEDS: Vancomycin 25 MG/ML Oral SOLN PO SCH ×4 (00:40→17:15)
[2022-02-23] MEDS: Acetaminophen 500 MG TAB PO SCH ×4 (00:41→17:17)
[2022-02-23] MEDS: Sevelamer Carbonate 800 MG TAB PO SCH ×3 (09:40→17:16)
[2022-02-23] MEDS: Aspirin 81 mg Enteric Coated Tablet PO SCH (09:41)
[2022-02-23] MEDS: Gabapentin 100 MG CAP PO SCH ×3 (09:41→20:40)
[2022-02-23] MEDS: Clopidogrel Bisulfate 75 MG TAB PO SCH (09:41)
[2022-02-23] MEDS: Cinacalcet HCl 30 MG TAB PO SCH (09:41)
[2022-02-23] MEDS: Floranex 1 GM Packet PO SCH ×2 (09:42→20:39)
[2022-02-23] MEDS: Carvedilol 25 MG TAB PO SCH ×2 (09:42→17:15)
[2022-02-23] MEDS: cloNIDine 0.1 MG TAB PO SCH ×2 (09:43→20:39)
[2022-02-23] MEDS: Heparin 5,000 UNITS/ML VIAL SC SCH ×3 (09:43→20:39)
[2022-02-23] MEDS: Losartan 25 MG TAB PO SCH (09:44)
[2022-02-23] MEDS: Cholestyramine/Aspartame 4 gm Packet PO SCH ×2 (10:30→22:20)
[2022-02-23] MEDS: Piperacillin/Tazobactam 3.375 GM in Sodium Chloride 0.9% 100 ML IVPB SCH ×2 (12:35→20:38)
[2022-02-23] MEDS: HYDROcodone/Acetaminophen 5/325 mg Tablet PO PRN (17:21)
[2022-02-23] MEDS: HumaLOG 300 UNITS/3 ML VIAL SC PRN ×2 (18:28→20:40)
[2022-02-23] MEDS: Atorvastatin Calcium 20 MG TAB PO SCH (20:39)
[2022-02-24] MEDS: Vancomycin 25 MG/ML Oral SOLN PO SCH ×5 (00:53→23:20)
[2022-02-24] MEDS: Acetaminophen 500 MG TAB PO SCH ×5 (00:53→23:20)
[2022-02-24] MEDS: HumaLOG 300 UNITS/3 ML VIAL SC PRN ×2 (05:50→20:48)
[2022-02-24] MEDS: cloNIDine 0.1 MG TAB PO SCH ×2 (08:11→20:31)
[2022-02-24] MEDS: Heparin 5,000 UNITS/ML VIAL SC SCH ×3 (08:11→20:35)
[2022-02-24] MEDS: Sevelamer Carbonate 800 MG TAB PO SCH ×3 (08:11→17:01)
[2022-02-24] MEDS: Losartan 25 MG TAB PO SCH (08:11)
[2022-02-24] MEDS: Clopidogrel Bisulfate 75 MG TAB PO SCH (08:12)
[2022-02-24] MEDS: Gabapentin 100 MG CAP PO SCH ×3 (08:12→20:33)
[2022-02-24] MEDS: Carvedilol 25 MG TAB PO SCH ×2 (08:12→17:01)
[2022-02-24] MEDS: Aspirin 81 mg Enteric Coated Tablet PO SCH (08:12)
[2022-02-24] MEDS: Cinacalcet HCl 30 MG TAB PO SCH (08:13)
[2022-02-24] MEDS: Floranex 1 GM Packet PO SCH ×2 (08:14→20:33)
[2022-02-24] MEDS: Piperacillin/Tazobactam 3.375 GM in Sodium Chloride 0.9% 100 ML IVPB SCH ×2 (09:43→20:31)
[2022-02-24] MEDS: Cholestyramine/Aspartame 4 gm Packet PO SCH ×2 (09:44→23:20)
[2022-02-24] MEDS ORDERED: PROPOFOL 40 ML ONE (10:46)
[2022-02-24 14:35] VITALS: BMI 28.3
[2022-02-24] MEDS: Atorvastatin Calcium 20 MG TAB PO SCH (20:32)
[2022-02-25] MEDS: Vancomycin 25 MG/ML Oral SOLN PO SCH ×2 (05:22→11:53)
[2022-02-25] MEDS: Acetaminophen 500 MG TAB PO SCH ×2 (05:23→11:52)
[2022-02-25 07:06] LABS: Anion Gap 17 mmol/L (10-20); BUN (Urea Nitrogen) 50 mg/dL (8.4-25.7); Calc. Creatinine Clearance 9 mL/min (70-130); Calcium 10.4 mg/dL (7.8-10.44); Carbon Dioxide 22 mmol/L (23-31); Chloride 95 mmol/L (98-107); Estimated GFR 9; Glucose 128 mg/dL (83-110); Potassium 4.8 mmol/L (3.5-5.1); Sodium 129 mmol/L (136-145)
[2022-02-25] MEDS: Piperacillin/Tazobactam 3.375 GM in Sodium Chloride 0.9% 100 ML IVPB SCH (08:24)
[2022-02-25] MEDS: Sevelamer Carbonate 800 MG TAB PO SCH ×2 (08:25→11:53)
[2022-02-25] MEDS: Cinacalcet HCl 30 MG TAB PO SCH (08:25)
[2022-02-25] MEDS: Heparin 5,000 UNITS/ML VIAL SC SCH ×2 (08:25→14:46)
[2022-02-25] MEDS: Clopidogrel Bisulfate 75 MG TAB PO SCH (08:25)
[2022-02-25] MEDS: cloNIDine 0.1 MG TAB PO SCH (08:25)
[2022-02-25] MEDS: Carvedilol 25 MG TAB PO SCH (08:25)
[2022-02-25] MEDS: Aspirin 81 mg Enteric Coated Tablet PO SCH (08:26)
[2022-02-25] MEDS: Gabapentin 100 MG CAP PO SCH ×2 (08:26→14:45)
[2022-02-25] MEDS: Floranex 1 GM Packet PO SCH (08:34)
[2022-02-25 08:59] VITALS: BP 164/68; TEMP 98.1
[2022-02-25] MEDS: Cholestyramine/Aspartame 4 gm Packet PO SCH (10:18)
[2022-02-26] MEDS ORDERED: Epoetin (ESRD) 10,000 UNITS/ML VIAL SC SCH (15:00)
== END 2022-02-25 16:07 | DRG 371 ==
LOC: ERS 21:06 → ERHOLD 23:17 → OBSVTOIN 02-06 11:46 → 2NO 02-06 14:48 → T4-B 02-20 14:57
PROVIDERS: ADMIT Internal Medicine; ATTEND Internal Medicine
PROC: 8E0ZXY6 Isolation (ICD-10-PCS; 2022-02-06)
PROC: 5A1D70Z Performance of Urinary Filtration, Intermittent, Less than 6 Hours Per Day (ICD-10-PCS; principal; 2022-02-07)
DX: A04.72 Enterocolitis due to Clostridium difficile, not specified as recurrent (principal); N18.6 End stage renal disease; U07.1 COVID-19; J12.82 Pneumonia due to coronavirus disease 2019; N15.1 Renal and perinephric abscess; A41.4 Sepsis due to anaerobes; T83.511A Infection and inflammatory reaction due to indwelling urethral catheter, initial encounter; I50.22 Chronic systolic (congestive) heart failure; I13.2 Hypertensive heart and chronic kidney disease with heart failure and with stage 5 chronic kidney disease, or end stage renal disease; N39.0 Urinary tract infection, site not specified; E11.22 Type 2 diabetes mellitus with diabetic chronic kidney disease; E11.51 Type 2 diabetes mellitus with diabetic peripheral angiopathy without gangrene; D63.1 Anemia in chronic kidney disease; N31.9 Neuromuscular dysfunction of bladder, unspecified; I25.10 Atherosclerotic heart disease of native coronary artery without angina pectoris; I27.20 Pulmonary hypertension, unspecified; N28.89 Other specified disorders of kidney and ureter; E78.2 Mixed hyperlipidemia; Y84.6 Urinary catheterization as the cause of abnormal reaction of the patient, or of later complication, without mention of misadventure at the time of the procedure; E83.39 Other disorders of phosphorus metabolism; E83.52 Hypercalcemia; K62.89 Other specified diseases of anus and rectum; Z99.2 Dependence on renal dialysis; I25.2 Old myocardial infarction; Z89.511 Acquired absence of right leg below knee; Z88.5 Allergy status to narcotic agent; Z79.899 Other long term (current) drug therapy; Z79.82 Long term (current) use of aspirin; Z79.02 Long term (current) use of antithrombotics/antiplatelets; Z95.810 Presence of automatic (implantable) cardiac defibrillator; Z89.612 Acquired absence of left leg above knee; Z95.1 Presence of aortocoronary bypass graft
CPT/HCPCS: 36415; 36416; 71045; 74177; 76770; 80048; 80053; 80069; 82306; 82553; 82652; 82728; 83540; 83550; 83605; 83630; 83690; 83970; 84484; 85025; 87040; 87077; 87149; 87186; 90935; 93005; 96372; 97139; G0257; G0378; J0360; J1644; J1815; J2270; J2543; J2704; J3490; J7050; Q4081; U0003; U0005

== ENCOUNTER 2022-04-01 16:10 | Emergency (ER) | payer MEDICARE | END 2022-04-01 19:10 | LOC: ERS 16:10 | DX: T82.590A Other mechanical complication of surgically created arteriovenous fistula, initial encounter (principal); I25.2 Old myocardial infarction; E78.5 Hyperlipidemia, unspecified; E11.22 Type 2 diabetes mellitus with diabetic chronic kidney disease; I12.0 Hypertensive chronic kidney disease with stage 5 chronic kidney disease or end stage renal disease; N18.6 End stage renal disease; Z99.2 Dependence on renal dialysis; Z79.82 Long term (current) use of aspirin; Z79.899 Other long term (current) drug therapy | CPT/HCPCS: 99284 ==

== ENCOUNTER 2022-04-28 07:21 | Outpatient (CLI) | payer MEDICARE ==
[2022-04-28] MEDS ORDERED: Iopamidol 370 76% 100 ML VIAL ONE (08:52)
== END 2022-04-28 07:22 | disposition home or self-care (01) ==
LOC: CT 07:21
PROVIDERS: ATTEND Urology
DX: N20.0 Calculus of kidney (principal); N28.89 Other specified disorders of kidney and ureter; N28.1 Cyst of kidney, acquired; N28.9 Disorder of kidney and ureter, unspecified; K80.20 Calculus of gallbladder without cholecystitis without obstruction; K82.8 Other specified diseases of gallbladder; K59.00 Constipation, unspecified; N40.0 Benign prostatic hyperplasia without lower urinary tract symptoms; N62 Hypertrophy of breast; N32.89 Other specified disorders of bladder; J90 Pleural effusion, not elsewhere classified
CPT/HCPCS: 71260; 74178; 78306; A9503; Q9967

== ENCOUNTER 2022-10-01 11:07 | Inpatient (IN) | payer MEDICARE ==
[2022-10-01 12:11] LABS: Hemoglobin 12.1 g/dL (14.0-18.0); Mean Corpuscular Hemoglobin 29.9 pg (27.0-31.0); Mean Corpuscular Volume 93.4 fl (78.0-98.0); Red Blood Cell (RBC) Count 4.03 mill/uL (4.70-6.10); White Blood Cell (WBC) Count 26.2 10x3/uL (4.8-10.8)
[2022-10-01 12:25] LABS: ALT (SGPT) 32 U/L (8-55); AST (SGOT) 39 U/L (5-34); Albumin 3.3 g/dL (3.4-4.8); Alkaline Phosphatase 294 U/L (40-110); Anion Gap 20 mmol/L (10-20); BUN (Urea Nitrogen) 42 mg/dL (8.4-25.7); Bilirubin, Total 0.8 mg/dL (0.2-1.2); CK (CPK) 18 U/L (30-200); Calc. Creatinine Clearance 0 mL/min (70-130); Calcium 10.3 mg/dL (7.8-10.44); Carbon Dioxide 25 mmol/L (23-31); Chloride 95 mmol/L (98-107); Estimated GFR 8; Globulin 5.7 g/dL (2.4-3.5); Glucose 122 mg/dL (83-110); Lipase 7 U/L (8-78); Potassium 4.3 mmol/L (3.5-5.1); Sodium 136 mmol/L (136-145)
[2022-10-01 12:28] LABS: Band 13 % (5-11); Hypochromia SLIGHT = 6-15 cells (100X) (0-5/hpf); Lymphocytes 1 % (21-51); MDiff Complete? YES; Mean Platelet Volume 8.9 fL (7.4-10.4); Monocytes 12 % (0-10); Neutrophil 74 % (42-75); Platelet Count 118 10x3/uL (130-400); Platelet Morphology Comment Appears Decreased; RBC Distribution Width 14.2 % (11.5-14.5)
[2022-10-01 12:48] LABS: CKMB 1.1 ng/mL (0-6.6)
[2022-10-01 12:54] LABS: SARS-CoV-2 NAA Rapid Test Not Detected (NotDetected)
[2022-10-01] MEDS ORDERED: Cefepime 2 GM VIAL ONE (12:58)
[2022-10-01 13:21] LABS: Bacteria/HPF 4+ HPF (None Seen); Bilirubin Negative (Negative); Blood, Urine 3+ (Negative); Glucose, Urine (Dipstick) Normal (Negative); Ketone, Urine Negative (Negative); Leukocyte 500 Leu/uL (Negative); Nitrite Negative (Negative); Protein, Urine (Dipstick) 300 mg/dL (Neg-Trace); RBC/HPF Greater than 50 HPF (0-3); Specific Gravity, Urine 1.017 (1.002-1.036); Urobilinogen Normal mg/dL (Less than 2); WBC/HPF Greater than 50 HPF (0-3)
[2022-10-01 13:22] LABS: Clarity Turbid (Clear)
[2022-10-01] MEDS ORDERED: Vancomycin 1 GM/200 ML (FROZEN) BAG ONE (14:23)
[2022-10-01] MEDS ORDERED: Aspirin Chewable 81 MG TAB ONE (14:45)
[2022-10-01] MEDS ORDERED: ISOVUE-370 76%-LOCM 1 ML ONE (15:15)
[2022-10-01] MEDS ORDERED: Ondansetron PF 4 MG/2 ML Vial IVP PRN (16:24)
[2022-10-01] MEDS ORDERED: Ondansetron ODT 4 MG TAB PO PRN (16:24)
[2022-10-01] MEDS ORDERED: Dextrose 50% Abboject 50 ML SYRINGE SLOW IVP PRN (16:24)
[2022-10-01] MEDS ORDERED: Dextrose 5% in Water 1,000 ML IV PRN (16:24)
[2022-10-01 16:46] LABS: Troponin I 0.085 ng/mL (< 0.028)
[2022-10-01 18:38] LABS: Troponin I 0.087 ng/mL (< 0.028)
[2022-10-01] MEDS ORDERED: Heparin 5,000 UNITS/ML VIAL SC SCH (21:00)
[2022-10-01] MEDS ORDERED: Famotidine/PF 20 mg/2ml Vial SLOW IVP SCH (21:00)
[2022-10-01] MEDS ORDERED: Famotidine 20 MG TAB PO SCH (21:00)
[2022-10-01] MEDS: metroNIDAZOLE 500 MG in Premix Bag 1 BAG IVPB SCH (21:32)
[2022-10-02] MEDS: Vancomycin HCl 125 MG/5 ML (BATCHED) UDCUP PO SCH ×3 (00:43→05:07)
[2022-10-02] MEDS: Acetaminophen 325 MG TAB PO PRN ×2 (04:13→13:35)
[2022-10-02] MEDS: metroNIDAZOLE 500 MG in Premix Bag 1 BAG IVPB SCH (05:04)
[2022-10-02 05:30] LABS: Hemoglobin 10.6 g/dL (14.0-18.0); Mean Corpuscular HGB CONC 30.5 g/dL (32.0-36.0); Mean Corpuscular Hemoglobin 28.5 pg (27.0-31.0); Mean Corpuscular Volume 93.4 fl (78.0-98.0); Mean Platelet Volume 9.6 fL (7.4-10.4); Platelet Count 102 10x3/uL (130-400); RBC Distribution Width 14.2 % (11.5-14.5); Red Blood Cell (RBC) Count 3.71 mill/uL (4.70-6.10); White Blood Cell (WBC) Count 21.5 10x3/uL (4.8-10.8)
[2022-10-02 05:48] LABS: Anion Gap 21 mmol/L (10-20); BUN (Urea Nitrogen) 58 mg/dL (8.4-25.7); Calc. Creatinine Clearance 7 mL/min (70-130); Calcium 10.1 mg/dL (7.8-10.44); Carbon Dioxide 22 mmol/L (23-31); Chloride 94 mmol/L (98-107); Estimated GFR 7; Glucose 219 mg/dL (83-110); Sodium 133 mmol/L (136-145)
[2022-10-02 06:52] LABS: Band 1 % (5-11); Eosinophils 2 % (0-10); Lymphocytes 3 % (21-51); MDiff Complete? YES; Monocytes 5 % (0-10); Neutrophil 89 % (42-75); Platelet Morphology Comment Appears Decreased; Polychromasia SLIGHT = 2-3 cells (100X) (0-2/hpf)
[2022-10-02] MEDS ORDERED: Polyethylene Glycol 3350 17 GM Packet PO PRN (07:28)
[2022-10-02] MEDS ORDERED: Piperacillin/Tazobactam 3.375 GM in Sodium Chloride 0.9% 100 ML IVPB SCH ×2 (07:30→08:00)
[2022-10-02] MEDS ORDERED: Vancomycin Hemodialysis Sliding Scale FS SCH (08:00)
[2022-10-02 08:10] LABS: Magnesium 2.1 mg/dL (1.6-2.6); Phosphorus 4.7 mg/dL (2.3-4.7)
[2022-10-02] MEDS ORDERED: Vancomycin 1 GM in Premix Bag 1 BAG IVPB SCH (09:00)
[2022-10-02] MEDS ORDERED: cefTRIAXone\\ROCEPHIN 1 GM in Sodium Chloride 0.9% 100 ML IVPB SCH (09:00)
[2022-10-02] MEDS ORDERED: FLU VACC QS2022-23(65YR UP)/PF 240 MCG/0.7 ML SYRINGE IM ONE (09:00)
[2022-10-02] MEDS: Heparin 5,000 UNITS/ML VIAL SC SCH ×2 (10:09→20:57)
[2022-10-02] MEDS: Clopidogrel Bisulfate 75 MG TAB PO SCH (10:16)
[2022-10-02] MEDS: Aspirin 81 mg Enteric Coated Tablet PO SCH (10:16)
[2022-10-02] MEDS: Famotidine 20 MG TAB PO SCH (10:16)
[2022-10-02] MEDS: Fidaxomicin 200 MG TAB PO SCH ×2 (10:25→20:59)
[2022-10-02] MEDS: HumaLOG 300 UNITS/3 ML VIAL SC PRN ×2 (10:54→20:58)
[2022-10-02] MEDS: Piperacillin/Tazobactam 3.375 GM in Sodium Chloride 0.9% 100 ML IVPB SCH (13:38)
[2022-10-02] MEDS: Lanthanum Carbonate 500 mg Chewable Tablet PO SCH ×2 (13:39→17:30)
[2022-10-02] MEDS: Gabapentin 100 MG CAP PO PRN (17:58)
[2022-10-02] MEDS ORDERED: Fleet Enema 133 ML BOT PR SCH (20:00)
[2022-10-02] MEDS: Atorvastatin Calcium 40 MG TAB PO SCH (20:59)
[2022-10-02] MEDS: Mirtazapine 15 MG Soltab PO SCH (20:59)
[2022-10-02] MEDS ORDERED: Atorvastatin Calcium 20 MG TAB PO SCH (21:00)
[2022-10-03] MEDS: Piperacillin/Tazobactam 3.375 GM in Sodium Chloride 0.9% 100 ML IVPB SCH ×2 (00:34→11:40)
[2022-10-03 05:32] LABS: #Eosinphils 0.2 thou/uL (0.0-0.7); #Neutrophils 12.4 thou/uL (1.40-6.50); %Basophils 0.1 % (0.0-1.0); %Eosinophils 1.5 % (0.0-10.0); %Lymphocytes 6.7 % (21.0-51.0); %Monocytes 6.7 % (0.0-10.0); Hemoglobin 10.6 g/dL (14.0-18.0); Mean Corpuscular HGB CONC 32.2 g/dL (32.0-36.0); Mean Corpuscular Hemoglobin 30.3 pg (27.0-31.0); Mean Corpuscular Volume 94.2 fl (78.0-98.0); Mean Platelet Volume 9.2 fL (7.4-10.4); Platelet Count 115 10x3/uL (130-400); Red Blood Cell (RBC) Count 3.49 mill/uL (4.70-6.10); White Blood Cell (WBC) Count 14.6 10x3/uL (4.8-10.8)
[2022-10-03 05:58] LABS: Anion Gap 20 mmol/L (10-20); BUN (Urea Nitrogen) 74 mg/dL (8.4-25.7); Calc. Creatinine Clearance 6 mL/min (70-130); Calcium 10.2 mg/dL (7.8-10.44); Carbon Dioxide 21 mmol/L (23-31); Chloride 95 mmol/L (98-107); Estimated GFR 5; Glucose 174 mg/dL (83-110); Sodium 132 mmol/L (136-145)
[2022-10-03 07:18] LABS: Vancomycin, Random 14.3 ug/mL (See Comment)
[2022-10-03] MEDS: Lanthanum Carbonate 500 mg Chewable Tablet PO SCH ×3 (10:46→16:21)
[2022-10-03] MEDS: Aspirin 81 mg Enteric Coated Tablet PO SCH (10:46)
[2022-10-03] MEDS: Famotidine 20 MG TAB PO SCH (10:47)
[2022-10-03] MEDS: Clopidogrel Bisulfate 75 MG TAB PO SCH (10:48)
[2022-10-03] MEDS: Fidaxomicin 200 MG TAB PO SCH (10:48)
[2022-10-03] MEDS: Gabapentin 100 MG CAP PO PRN (10:50)
[2022-10-03 11:04] LABS: HBSAg Index 0.24 S/CO (0-0.99); Hep B Core Total Ab Non-Reactive (NonReactive); Hep B Core Total Index 0.16 S/CO (0-0.79); Hep B Surf Ag Non-Reactive S/CO (NonReactive); Hep C IgG Ab Non-Reactive (NonReactive); Hep C Index 0.11 S/CO (0-0.79)
[2022-10-03] MEDS ORDERED: Iopamidol-370 76% 500 ML 1 ML ONE (11:09)
[2022-10-03] MEDS: Heparin 5,000 UNITS/ML VIAL SC SCH (11:37)
[2022-10-03] MEDS ORDERED: cloNIDine 0.1 MG TAB PO PRN (14:38)
[2022-10-03 14:47] LABS: HBSAB Concentration 11.39 mIU/mL; Hep B Surf AB Indeterminate (NonReactive)
[2022-10-03] MEDS: Carvedilol 6.25 MG TAB PO SCH (16:21)
[2022-10-03] MEDS: HumaLOG 300 UNITS/3 ML VIAL SC PRN (16:45)
[2022-10-03] MEDS ORDERED: Vancomycin HCl 750 MG in Sodium Chloride 0.9% 250 ML 250 ML IVPB SCH (17:00)
[2022-10-04] MEDS: Dorzolamide HCl 2% Ophth Soln 10 ml Bottle EA EYE SCH ×3 (01:28→21:21)
[2022-10-04] MEDS: Timolol 0.5% Ophth Soln 5 ml Bottle EA EYE SCH ×3 (01:29→21:21)
[2022-10-04] MEDS: Saccharomyces boulardii 250 MG CAP PO SCH ×3 (01:30→21:21)
[2022-10-04] MEDS: Mirtazapine 15 MG Soltab PO SCH ×2 (01:30→21:22)
[2022-10-04] MEDS: Gabapentin 300 MG CAP PO SCH ×2 (01:34→21:21)
[2022-10-04] MEDS: Senokot S 8.6-50 MG TAB PO SCH ×3 (01:35→21:21)
[2022-10-04] MEDS: Atorvastatin Calcium 40 MG TAB PO SCH ×2 (01:35→21:20)
[2022-10-04] MEDS: Heparin 5,000 UNITS/ML VIAL SC SCH ×3 (01:38→21:20)
[2022-10-04] MEDS ORDERED: Piperacillin/Tazobactam 3.375 GM in Sodium Chloride 0.9% 100 ML IVPB SCH (04:00)
[2022-10-04] MEDS: HumaLOG 300 UNITS/3 ML VIAL SC PRN ×4 (05:16→21:23)
[2022-10-04] MEDS ORDERED: Epoetin (ESRD) 10,000 UNITS/ML VIAL SC SCH (09:15)
[2022-10-04] MEDS: Lanthanum Carbonate 500 mg Chewable Tablet PO SCH ×3 (09:18→17:37)
[2022-10-04] MEDS: Losartan 25 MG TAB PO SCH (09:20)
[2022-10-04] MEDS: Famotidine 20 MG TAB PO SCH (09:20)
[2022-10-04] MEDS: Tamsulosin HCl 0.4 MG CAP PO SCH (09:20)
[2022-10-04] MEDS: Carvedilol 6.25 MG TAB PO SCH ×2 (09:20→17:37)
[2022-10-04] MEDS: Calcium Acetate 667 MG CAP PO SCH (09:21)
[2022-10-04] MEDS: Aspirin 81 mg Enteric Coated Tablet PO SCH (09:21)
[2022-10-04] MEDS: Clopidogrel Bisulfate 75 MG TAB PO SCH (09:21)
[2022-10-04 09:22] LABS: Anion Gap 13 mmol/L (10-20); BUN (Urea Nitrogen) 29 mg/dL (8.4-25.7); Calc. Creatinine Clearance 10 mL/min (70-130); Calcium 9.8 mg/dL (7.8-10.44); Carbon Dioxide 32 mmol/L (23-31); Chloride 94 mmol/L (98-107); Estimated GFR 11; Glucose 136 mg/dL (83-110); Potassium 3.2 mmol/L (3.5-5.1); Sodium 136 mmol/L (136-145)
[2022-10-04] MEDS: Polyethylene Glycol 3350 17 GM Packet PO SCH (09:22)
[2022-10-04] MEDS ORDERED: EPOETIN ALFA-EPBX (ESRD) 10,000 UNIT/ML VIAL SC SCH (11:30)
[2022-10-04 12:26] LABS: Band 3 % (5-11); Eosinophils 2 % (0-10); Hemoglobin 10.8 g/dL (14.0-18.0); Lymphocytes 14 % (21-51); MDiff Complete? YES; Mean Corpuscular HGB CONC 32.1 g/dL (32.0-36.0); Mean Corpuscular Hemoglobin 29.6 pg (27.0-31.0); Mean Corpuscular Volume 92.2 fl (78.0-98.0); Mean Platelet Volume 9.1 fL (7.4-10.4); Monocytes 12 % (0-10); Neutrophil 69 % (42-75); Platelet Count 121 10x3/uL (130-400); Platelet Morphology Comment Appears Decreased; RBC Morphology Normal; Red Blood Cell (RBC) Count 3.64 mill/uL (4.70-6.10); White Blood Cell (WBC) Count 10.4 10x3/uL (4.8-10.8)
[2022-10-04 12:34] VITALS: BMI 17.4
[2022-10-05 07:54] LABS: Hemoglobin 10.8 g/dL (14.0-18.0); Mean Corpuscular HGB CONC 31.7 g/dL (32.0-36.0); Mean Corpuscular Hemoglobin 29.7 pg (27.0-31.0); Mean Corpuscular Volume 93.6 fl (78.0-98.0); Platelet Count 129 10x3/uL (130-400); Red Blood Cell (RBC) Count 3.65 mill/uL (4.70-6.10)
[2022-10-05 08:14] LABS: Anion Gap 16 mmol/L (10-20); BUN (Urea Nitrogen) 40 mg/dL (8.4-25.7); Calc. Creatinine Clearance 8 mL/min (70-130); Calcium 10.1 mg/dL (7.8-10.44); Carbon Dioxide 29 mmol/L (23-31); Chloride 92 mmol/L (98-107); Estimated GFR 8; Glucose 152 mg/dL (83-110); Magnesium 2.1 mg/dL (1.6-2.6); Potassium 3.5 mmol/L (3.5-5.1); Sodium 133 mmol/L (136-145)
[2022-10-05] MEDS ORDERED: Heparin 10,000 UNITS/ 10 ML VIAL ONE (09:04)
[2022-10-05 09:19] LABS: Band 1 % (5-11); Eosinophils 1 % (0-10); Lymphocytes 9 % (21-51); MDiff Complete? YES; Monocytes 14 % (0-10); Neutrophil 75 % (42-75); Platelet Morphology Comment Appears Decreased; Polychromasia SLIGHT = 2-3 cells (100X) (0-2/hpf); RBC Morphology Normal
[2022-10-05] MEDS: Calcium Acetate 667 MG CAP PO SCH (10:08)
[2022-10-05] MEDS: Aspirin 81 mg Enteric Coated Tablet PO SCH (10:08)
[2022-10-05] MEDS: Polyethylene Glycol 3350 17 GM Packet PO SCH (10:09)
[2022-10-05] MEDS: Clopidogrel Bisulfate 75 MG TAB PO SCH (10:09)
[2022-10-05] MEDS: Losartan 25 MG TAB PO SCH (10:09)
[2022-10-05] MEDS: Famotidine 20 MG TAB PO SCH (10:09)
[2022-10-05] MEDS: Senokot S 8.6-50 MG TAB PO SCH (10:10)
[2022-10-05] MEDS: Tamsulosin HCl 0.4 MG CAP PO SCH (10:10)
[2022-10-05] MEDS: Lanthanum Carbonate 500 mg Chewable Tablet PO SCH ×3 (10:13→18:18)
[2022-10-05] MEDS: Carvedilol 6.25 MG TAB PO SCH ×2 (10:13→17:09)
[2022-10-05] MEDS: Saccharomyces boulardii 250 MG CAP PO SCH (10:14)
[2022-10-05] MEDS: Timolol 0.5% Ophth Soln 5 ml Bottle EA EYE SCH (10:14)
[2022-10-05] MEDS: Dorzolamide HCl 2% Ophth Soln 10 ml Bottle EA EYE SCH (10:14)
[2022-10-05] MEDS: Heparin 5,000 UNITS/ML VIAL SC SCH (10:14)
[2022-10-05 17:10] VITALS: BP 133/71; TEMP 97.5
== END 2022-10-05 18:44 | disposition home or self-care (01) | DRG 871 ==
LOC: ERS 11:07 → 2NO 14:38 → T4-A 10-03 23:08
PROVIDERS: ADMIT Hospitalist; ATTEND Family Medicine
DX: A41.9 Sepsis, unspecified organism (principal); J96.01 Acute respiratory failure with hypoxia; N18.6 End stage renal disease; I12.0 Hypertensive chronic kidney disease with stage 5 chronic kidney disease or end stage renal disease; A04.71 Enterocolitis due to Clostridium difficile, recurrent; I25.810 Atherosclerosis of coronary artery bypass graft(s) without angina pectoris; C64.1 Malignant neoplasm of right kidney, except renal pelvis; Z20.822 Contact with and (suspected) exposure to COVID-19; E11.9 Type 2 diabetes mellitus without complications; E11.22 Type 2 diabetes mellitus with diabetic chronic kidney disease; E78.5 Hyperlipidemia, unspecified; K56.41 Fecal impaction; Z95.810 Presence of automatic (implantable) cardiac defibrillator; Z99.2 Dependence on renal dialysis; I25.2 Old myocardial infarction; Z89.512 Acquired absence of left leg below knee; Z88.5 Allergy status to narcotic agent; Z79.82 Long term (current) use of aspirin; Z79.899 Other long term (current) drug therapy; E78.2 Mixed hyperlipidemia; N28.89 Other specified disorders of kidney and ureter; R31.0 Gross hematuria
CPT/HCPCS: 36415; 36416; 71045; 71260; 74177; 80048; 80053; 80061; 80202; 81003; 81015; 82550; 82553; 83036; 83605; 83690; 83735; 83880; 84100; 84145; 84484; 85025; 86704; 87040; 87081; 87086; 87324; 87449; 88121; 93005; 96365; 96366; 96367; 97139; J0692; J1644; J1815; J2543; J3370; J3370-JW; J3490; J7050; Q5105; Q9966; Q9967

== ENCOUNTER 2022-10-27 13:38 | Outpatient (CLI) | payer MEDICARE | END 2022-10-27 13:39 | disposition home or self-care (01) | LOC: CT 13:38 | PROVIDERS: ATTEND Nurse Practitioner Family | DX: J90 Pleural effusion, not elsewhere classified (principal) | CPT/HCPCS: 71046; 71260 ==

== ENCOUNTER 2022-11-20 11:45 | Inpatient (IN) | payer MEDICARE ==
[~2022-11-20 11:45] MED LIST: Heparin 10,000 UNITS/ 10 ML VIAL ONE
[2022-11-20] MEDS ORDERED: hydrALAZINE 20 MG/ML VIAL ONE (12:50)
[2022-11-20 13:45] LABS: Clarity Cloudy (Clear); Specific Gravity, Urine 1.038 (1.002-1.036)
[2022-11-20 13:46] LABS: Bilirubin Unable to Interpret (Negative); Blood, Urine Unable to Interpret (Negative); Glucose, Urine (Dipstick) Unable to Interpret mg/dL (Negative); Ketone, Urine Unable to Interpret mg/dL (Negative); Leukocyte Unable to Interpret Leu/uL (Negative); Nitrite Unable to Interpret (Negative); Protein, Urine (Dipstick) Unable to Interpret mg/dL (Neg-Trace); Urobilinogen UNABLE TO INTERPRET mg/dL (Less than 2); pH, Urine 6.1 (5.0-9.0)
[2022-11-20 13:52] LABS: #Eosinphils 0.1 thou/uL (0.0-0.7); #Lymphocytes 0.8 thou/uL (1.20-3.40); #Monocytes 0.2 thou/uL (0.11-0.59); #Neutrophils 4.6 thou/uL (1.40-6.50); %Basophils 0.6 % (0.0-1.0); %Eosinophils 1.7 % (0.0-10.0); %Lymphocytes 13.6 % (21.0-51.0); %Monocytes 4.2 % (0.0-10.0); Hemoglobin 17.1 g/dL (14.0-18.0); Mean Corpuscular HGB CONC 32.2 g/dL (32.0-36.0); Mean Corpuscular Hemoglobin 30.3 pg (27.0-31.0); Mean Corpuscular Volume 94.1 fl (78.0-98.0); Mean Platelet Volume 9.1 fL (7.4-10.4); Platelet Count 79 10x3/uL (130-400); RBC Distribution Width 14.9 % (11.5-14.5); Red Blood Cell (RBC) Count 5.63 mill/uL (4.70-6.10); White Blood Cell (WBC) Count 5.8 10x3/uL (4.8-10.8)
[2022-11-20 13:52] LABS: Bacteria/HPF 4+ HPF (None Seen); Squamous Epithelial 0-3 HPF (0-3)
[2022-11-20 14:06] LABS: ALT (SGPT) 25 U/L (8-55); AST (SGOT) 23 U/L (5-34); Acetaminophen Less than 10.0 mcg/mL (10.0-30.0); Albumin 3.4 g/dL (3.4-4.8); Alcohol Less than 10 mg/dL (Less than 10); Alkaline Phosphatase 327 U/L (40-110); Anion Gap 18 mmol/L (10-20); BUN (Urea Nitrogen) 45 mg/dL (8.4-25.7); Bilirubin, Total 0.4 mg/dL (0.2-1.2); Calc. Creatinine Clearance 0 mL/min (70-130); Calcium 10.4 mg/dL (7.8-10.44); Carbon Dioxide 27 mmol/L (23-31); Chloride 94 mmol/L (98-107); Estimated GFR 7; Globulin 5.8 g/dL (2.4-3.5); Glucose 205 mg/dL (83-110); Lipase 31 U/L (8-78); Protein, Total 9.2 g/dL (5.8-8.1); Salicylate Less than 8.0 mg/dL (15.0-30.0); Sodium 135 mmol/L (136-145)
[2022-11-20 14:08] LABS: Platelet Morphology Comment Appears Decreased; RBC Morphology Normal
[2022-11-20 14:25] LABS: CKMB 2.2 ng/mL (0-6.6)
[2022-11-20] MEDS ORDERED: Acetaminophen 325 MG TAB PO PRN (16:05)
[2022-11-20] MEDS ORDERED: Ondansetron PF 4 MG/2 ML Vial IVP PRN (16:07)
[2022-11-20] MEDS ORDERED: Aspirin 81 mg Enteric Coated Tablet ONE (16:11)
[2022-11-20] MEDS ORDERED: Clopidogrel Bisulfate 75 MG TAB ONE (16:11)
[2022-11-20] MEDS ORDERED: hydrALAZINE 20 MG/ML VIAL SLOW IVP PRN (16:12)
[2022-11-20] MEDS ORDERED: Insulin Regular 300 UNITS/3 ML VIAL SC PRN ×2 (16:32)
[2022-11-20] MEDS ORDERED: Dextrose 5% in Water 1,000 ML IV PRN (16:32)
[2022-11-20] MEDS ORDERED: Dextrose 50% Abboject 50 ML SYRINGE SLOW IVP PRN (16:32)
[2022-11-20 16:56] LABS: Troponin I 0.051 ng/mL (< 0.028)
[2022-11-20 17:47] VITALS: BMI 24.7
[2022-11-20] MEDS: Carvedilol 6.25 MG TAB PO SCH (17:57)
[2022-11-20] MEDS: Lidocaine 4% Patch TD SCH (17:57)
[2022-11-20 20:19] LABS: Troponin I 0.055 ng/mL (< 0.028)
[2022-11-20] MEDS ORDERED: Heparin 5,000 UNITS/ML VIAL SC SCH (21:00)
[2022-11-20] MEDS ORDERED: Atorvastatin Calcium 40 MG TAB PO SCH (21:00)
[2022-11-20] MEDS: Polyethylene Glycol 3350 17 GM Packet PO SCH (23:02)
[2022-11-20] MEDS: Dorzolamide HCl 2% Ophth Soln 10 ml Bottle EA EYE SCH (23:02)
[2022-11-20] MEDS: Atorvastatin Calcium 20 MG TAB PO SCH (23:03)
[2022-11-20] MEDS: Acetaminophen 325 MG TAB PO SCH (23:03)
[2022-11-20] MEDS: Folic Acid/Vit B Comp W-C PO SCH (23:03)
[2022-11-20] MEDS: Senokot S 8.6-50 MG TAB PO SCH (23:03)
[2022-11-20] MEDS: Triple Antibiotic Oint 1 GM Packet TOP SCH (23:04)
[2022-11-21] MEDS: Transdermal Patch Removal TOP SCH (04:58)
[2022-11-21 05:34] LABS: Anion Gap 16 mmol/L (10-20); BUN (Urea Nitrogen) 29 mg/dL (8.4-25.7); Calc. Creatinine Clearance 10 mL/min (70-130); Calcium 10.6 mg/dL (7.8-10.44); Carbon Dioxide 26 mmol/L (23-31); Chloride 97 mmol/L (98-107); Estimated GFR 10; Glucose 98 mg/dL (83-110); Potassium 3.7 mmol/L (3.5-5.1); Sodium 135 mmol/L (136-145)
[2022-11-21 07:41] LABS: #Eosinphils 0.1 thou/uL (0.0-0.7); #Lymphocytes 1.7 thou/uL (1.20-3.40); #Monocytes 0.6 thou/uL (0.11-0.59); #Neutrophils 5.1 thou/uL (1.40-6.50); %Basophils 0.6 % (0.0-1.0); %Lymphocytes 22.5 % (21.0-51.0); %Monocytes 7.8 % (0.0-10.0); %Neutrophils 67.2 % (42.0-75.0); Mean Corpuscular HGB CONC 33.6 g/dL (32.0-36.0); Mean Corpuscular Hemoglobin 31.1 pg (27.0-31.0); Mean Corpuscular Volume 92.5 fl (78.0-98.0); Mean Platelet Volume 8.6 fL (7.4-10.4); Platelet Count 136 10x3/uL (130-400); RBC Distribution Width 14.6 % (11.5-14.5); Red Blood Cell (RBC) Count 3.52 mill/uL (4.70-6.10); White Blood Cell (WBC) Count 7.6 10x3/uL (4.8-10.8)
[2022-11-21] MEDS ORDERED: Heparin 10,000 UNITS/ 10 ML VIAL ONE (08:38)
[2022-11-21] MEDS ORDERED: Piperacillin/Tazobactam 3.375 GM in Sodium Chloride 0.9% 100 ML IVPB SCH ×2 (12:45→18:00)
[2022-11-21] MEDS: Senokot S 8.6-50 MG TAB PO SCH ×3 (13:44→20:55)
[2022-11-21] MEDS: Polyethylene Glycol 3350 17 GM Packet PO SCH ×3 (13:45→20:56)
[2022-11-21] MEDS: Losartan 25 MG TAB PO SCH (13:45)
[2022-11-21] MEDS: Carvedilol 6.25 MG TAB PO SCH ×2 (13:46→16:59)
[2022-11-21] MEDS: Acetaminophen 325 MG TAB PO SCH ×3 (13:46→20:56)
[2022-11-21] MEDS: Clopidogrel Bisulfate 75 MG TAB PO SCH (13:46)
[2022-11-21] MEDS: Aspirin 81 mg Enteric Coated Tablet PO SCH (13:46)
[2022-11-21] MEDS: Insulin Glargine 30 UNITS/0.3 ML VIAL SC SCH (13:46)
[2022-11-21] MEDS: Dorzolamide HCl 2% Ophth Soln 10 ml Bottle EA EYE SCH ×2 (13:47→20:56)
[2022-11-21] MEDS: Triple Antibiotic Oint 1 GM Packet TOP SCH ×3 (13:51→20:56)
[2022-11-21] MEDS: Lidocaine 4% Patch TD SCH (17:01)
[2022-11-21] MEDS: Piperacillin/Tazobactam 3.375 GM in Sodium Chloride 0.9% 100 ML IVPB SCH (20:55)
[2022-11-21] MEDS: Atorvastatin Calcium 20 MG TAB PO SCH (20:56)
[2022-11-21] MEDS: Folic Acid/Vit B Comp W-C PO SCH (20:56)
[2022-11-22] MEDS: Transdermal Patch Removal TOP SCH (05:02)
[2022-11-22] MEDS: Carvedilol 6.25 MG TAB PO SCH (10:27)
[2022-11-22] MEDS: Acetaminophen 325 MG TAB PO SCH ×2 (10:28→15:45)
[2022-11-22] MEDS: Aspirin 81 mg Enteric Coated Tablet PO SCH (10:29)
[2022-11-22] MEDS: Clopidogrel Bisulfate 75 MG TAB PO SCH (10:30)
[2022-11-22] MEDS: Dorzolamide HCl 2% Ophth Soln 10 ml Bottle EA EYE SCH (10:30)
[2022-11-22] MEDS: Insulin Glargine 30 UNITS/0.3 ML VIAL SC SCH (10:30)
[2022-11-22] MEDS: Piperacillin/Tazobactam 3.375 GM in Sodium Chloride 0.9% 100 ML IVPB SCH (10:31)
[2022-11-22] MEDS: Losartan 25 MG TAB PO SCH (10:31)
[2022-11-22] MEDS: Triple Antibiotic Oint 1 GM Packet TOP SCH ×2 (10:31→15:45)
[2022-11-22] MEDS: Senokot S 8.6-50 MG TAB PO SCH (10:32)
[2022-11-22] MEDS: Polyethylene Glycol 3350 17 GM Packet PO SCH (10:32)
[2022-11-22 16:14] VITALS: BP 137/67; TEMP 97.1
== END 2022-11-22 17:55 | disposition home or self-care (01) | DRG 917 ==
LOC: ERS 11:45 → ERHOLD 16:06 → 2NO 20:26 → OBSVTOIN 11-21 12:41
PROVIDERS: ADMIT Internal Medicine; ATTEND Internal Medicine
PROC: 5A1D70Z Performance of Urinary Filtration, Intermittent, Less than 6 Hours Per Day (ICD-10-PCS; principal; 2022-11-21)
DX: T37.5X1A Poisoning by antiviral drugs, accidental (unintentional), initial encounter (principal); G92.8 Other toxic encephalopathy; N18.6 End stage renal disease; N39.0 Urinary tract infection, site not specified; E11.22 Type 2 diabetes mellitus with diabetic chronic kidney disease; I25.10 Atherosclerotic heart disease of native coronary artery without angina pectoris; N40.0 Benign prostatic hyperplasia without lower urinary tract symptoms; B96.5 Pseudomonas (aeruginosa) (mallei) (pseudomallei) as the cause of diseases classified elsewhere; D69.6 Thrombocytopenia, unspecified; B96.4 Proteus (mirabilis) (morganii) as the cause of diseases classified elsewhere; E78.5 Hyperlipidemia, unspecified; Z95.1 Presence of aortocoronary bypass graft; Z99.2 Dependence on renal dialysis; Z88.5 Allergy status to narcotic agent; Z79.82 Long term (current) use of aspirin; Z79.4 Long term (current) use of insulin; Z79.899 Other long term (current) drug therapy; Z89.512 Acquired absence of left leg below knee; Z89.511 Acquired absence of right leg below knee; Z95.810 Presence of automatic (implantable) cardiac defibrillator
CPT/HCPCS: 36415; 36416; 70450; 71045; 80048; 80307; 81003; 81015; 82140; 82553; 83605; 83690; 84484; 85025; 87040; 87077; 87086; 87149; 87186; 90935; 93005; 96374; G0257; J0360; J1644; J1815; J2543; J3490

== ENCOUNTER 2024-01-17 20:07 | Inpatient (IN) | payer MEDICARE ==
[2024-01-17 21:07] LABS: #Basophils Less than 0.03 10x3/uL (0.0-0.2); %Basophils 0.1 % (0.0-1.0); %Eosinophils 0.7 % (0.0-10.0); %Lymphocytes 5.7 % (21.0-51.0); %Monocytes 8.8 % (0.0-10.0); Hematocrit 30.6 % (42.0-52.0); Hemoglobin 10.1 g/dL (14.0-18.0); Mean Corpuscular Hemoglobin 29.7 pg (27.0-31.0); Mean Platelet Volume 10.9 fL (7.4-10.4); Platelet Count 125 10x3/uL (130-400); RBC Distribution Width 14.9 % (11.5-14.5)
[2024-01-17 21:45] LABS: Phosphorus 5.6 mg/dL (2.3-4.7)
[2024-01-17 21:46] LABS: ALT (SGPT) 23 U/L (8-55); AST (SGOT) 49 U/L (5-34); Alkaline Phosphatase 200 U/L (40-110); Anion Gap 19 mmol/L (10-20); BUN (Urea Nitrogen) 59 mg/dL (8.4-25.7); Bilirubin, Total 0.6 mg/dL (0.2-1.2); Calc. Creatinine Clearance 0 mL/min (70-130); Calcium 9.3 mg/dL (7.8-10.44); Carbon Dioxide 23 mmol/L (23-31); Chloride 95 mmol/L (98-107); Estimated GFR 7; Globulin 5.1 g/dL (2.4-3.5); Glucose 164 mg/dL (83-110); Potassium 3.8 mmol/L (3.5-5.1); Protein, Total 7.1 g/dL (5.8-8.1); Sodium 133 mmol/L (136-145)
[2024-01-17 22:13] LABS: Critical Call Chem Troponin I LOCASIO500@@2212; Troponin I 1.126 ng/mL (< 0.028)
[2024-01-18] MEDS ORDERED: Aspirin 325 MG TAB ONE (00:49)
[2024-01-18 01:00] LABS: Critical Call Chem Troponin I RESULT DECREASING; Troponin I 1.067 ng/mL (< 0.028)
[2024-01-18] MEDS ORDERED: Ondansetron PF 4 MG/2 ML Vial IVP PRN (02:25)
[2024-01-18] MEDS ORDERED: Acetaminophen 650 MG Suppository PR PRN (02:25)
[2024-01-18] MEDS ORDERED: Ondansetron ODT 4 MG TAB PO PRN (02:25)
[2024-01-18 03:34] LABS: #Basophils 0.03 10x3/uL (0.0-0.2); %Basophils 0.2 % (0.0-1.0); %Eosinophils 0.8 % (0.0-10.0); %Lymphocytes 6.1 % (21.0-51.0); %Monocytes 10.9 % (0.0-10.0); %Neutrophils 81.2 % (42.0-75.0); Hematocrit 33.2 % (42.0-52.0); Hemoglobin 10.5 g/dL (14.0-18.0); Mean Corpuscular HGB CONC 31.6 g/dL (32.0-36.0); Mean Corpuscular Hemoglobin 29.7 pg (27.0-31.0); Mean Corpuscular Volume 94.1 fL (78.0-98.0); Mean Platelet Volume 10.9 fL (7.4-10.4); Platelet Count 133 10x3/uL (130-400); Red Blood Cell (RBC) Count 3.53 mill/uL (4.70-6.10)
[2024-01-18 04:08] LABS: Anion Gap 23 mmol/L (10-20); BUN (Urea Nitrogen) 62 mg/dL (8.4-25.7); Calc. Creatinine Clearance 0 mL/min (70-130); Carbon Dioxide 19 mmol/L (23-31); Chloride 96 mmol/L (98-107); Sodium 134 mmol/L (136-145)
[2024-01-18 04:09] LABS: Calcium 9.7 mg/dL (7.8-10.44); Estimated GFR 7; Glucose 143 mg/dL (83-110)
[2024-01-18 04:15] LABS: Critical Call Chem Troponin I RESULT DECREASING; Troponin I 0.915 ng/mL (< 0.028)
[2024-01-18 04:25] LABS: Lactic Acid 1.4 mmol/L (0.5-2.2)
[2024-01-18] MEDS ORDERED: Gabapentin 100 MG CAP ONE (12:39)
[2024-01-18] MEDS: Gabapentin 100 MG CAP PO SCH (12:47)
[2024-01-18 13:25] LABS: HBSAB Concentration 55.76 mIU/mL; HBsAg Index 0.33 S/CO (0-0.99); Hep B Core Total Ab NONREACTIVE (NonReactive); Hep B Surf AB REACTIVE (NonReactive); Hep B Surf Ag NONREACTIVE S/CO (NonReactive); Hep C IgG Ab NONREACTIVE S/CO (NonReactive); Hep C Index 0.23 S/CO (0-0.79)
[2024-01-18] MEDS ORDERED: HumaLOG 300 UNITS/3 ML VIAL SC PRN (13:57)
[2024-01-18] MEDS ORDERED: Glucagon 1 MG/ML KIT IM PRN (13:57)
[2024-01-18] MEDS ORDERED: Dextrose 50% Abboject 50 ML SYRINGE SLOW IVP PRN (13:57)
[2024-01-18] MEDS ORDERED: Dextrose 5% in Water 1,000 ML IV PRN (13:57)
[2024-01-18] MEDS ORDERED: Iopamidol-370 76% 500 ML MDV (1 ML CHARGE) ONE (15:28)
[2024-01-18] MEDS: Heparin 5,000 UNITS/ML VIAL SC SCH (17:04)
[2024-01-18] MEDS: Carvedilol 3.125 MG TAB PO SCH (17:04)
[2024-01-18] MEDS: cefTRIAXone\\ROCEPHIN 1 GM in Sodium Chloride 0.9% 100 ML IVPB SCH (17:04)
[2024-01-18 19:29] LABS: Troponin I 0.803 ng/mL (< 0.028)
[2024-01-18] MEDS: Timolol 0.5% Ophth Soln 5 ml Bottle EA EYE SCH (21:19)
[2024-01-18] MEDS: Atorvastatin Calcium 20 MG TAB PO SCH (21:19)
[2024-01-19 05:25] LABS: Anion Gap 20 mmol/L (10-20); BUN (Urea Nitrogen) 72 mg/dL (8.4-25.7); Calc. Creatinine Clearance 6 mL/min (70-130); Calcium 9.8 mg/dL (7.8-10.44); Carbon Dioxide 23 mmol/L (23-31); Chloride 95 mmol/L (98-107); Estimated GFR 6; Glucose 131 mg/dL (83-110); Potassium 4.1 mmol/L (3.5-5.1); Sodium 134 mmol/L (136-145)
[2024-01-19 05:36] LABS: CRP,High Sensitivity (Inhouse) 19.26 mg/dL (< or = 0.5)
[2024-01-19 06:16] LABS: #Basophils Less than 0.03 10x3/uL (0.0-0.2); %Basophils 0.2 % (0.0-1.0); %Eosinophils 1.2 % (0.0-10.0); %Monocytes 12.6 % (0.0-10.0); %Neutrophils 76.3 % (42.0-75.0); Hematocrit 32.6 % (42.0-52.0); Hemoglobin 10.8 g/dL (14.0-18.0); Mean Corpuscular HGB CONC 33.1 g/dL (32.0-36.0); Mean Corpuscular Hemoglobin 29.5 pg (27.0-31.0); Mean Corpuscular Volume 89.1 fL (78.0-98.0); Mean Platelet Volume 11.1 fL (7.4-10.4); Platelet Count 138 10x3/uL (130-400); RBC Distribution Width 14.8 % (11.5-14.5); Red Blood Cell (RBC) Count 3.66 mill/uL (4.70-6.10)
[2024-01-19] MEDS: Clopidogrel Bisulfate 75 MG TAB PO SCH (08:29)
[2024-01-19] MEDS: Aspirin 81 mg Enteric Coated Tablet PO SCH (08:29)
[2024-01-19] MEDS: Insulin Glargine 30 UNITS/0.3 ML VIAL SC SCH (08:29)
[2024-01-19] MEDS: EPOETIN ALFA-EPBX (ESRD) 10,000 UNITS/ML VIAL SC SCH (10:46)
[2024-01-19] MEDS ORDERED: Heparin 10,000 UNITS/ 10 ML VIAL ONE (13:49)
[2024-01-20] MEDS: Acetaminophen 325 MG TAB PO PRN (03:01)
[2024-01-20] MEDS: Melatonin 3 MG TAB PO PRN (20:30)
[2024-01-20] MEDS: Gabapentin 100 MG CAP PO PRN (20:30)
[2024-01-21 08:17] LABS: #Basophils Less than 0.03 10x3/uL (0.0-0.2); %Basophils 0.3 % (0.0-1.0); %Eosinophils 1.9 % (0.0-10.0); %Lymphocytes 14.5 % (21.0-51.0); %Monocytes 12.8 % (0.0-10.0); %Neutrophils 68.1 % (42.0-75.0); Hematocrit 30.3 % (42.0-52.0); Hemoglobin 9.8 g/dL (14.0-18.0); Mean Corpuscular HGB CONC 32.3 g/dL (32.0-36.0); Mean Corpuscular Hemoglobin 29.5 pg (27.0-31.0); Mean Corpuscular Volume 91.3 fL (78.0-98.0); Mean Platelet Volume 10.6 fL (7.4-10.4); Platelet Count 154 10x3/uL (130-400); Red Blood Cell (RBC) Count 3.32 mill/uL (4.70-6.10)
[2024-01-21 08:36] LABS: Anion Gap 20 mmol/L (10-20); BUN (Urea Nitrogen) 47 mg/dL (8.4-25.7); Calc. Creatinine Clearance 8 mL/min (70-130); Calcium 9.7 mg/dL (7.8-10.44); Carbon Dioxide 24 mmol/L (23-31); Chloride 97 mmol/L (98-107); Estimated GFR 8; Glucose 113 mg/dL (83-110); Potassium 3.9 mmol/L (3.5-5.1); Sodium 137 mmol/L (136-145)
[2024-01-21] MEDS: Insulin Glargine 30 UNITS/0.3 ML VIAL SC SCH (10:27)
[2024-01-22 06:02] LABS: #Basophils Less than 0.03 10x3/uL (0.0-0.2); %Basophils 0.2 % (0.0-1.0); %Eosinophils 2.6 % (0.0-10.0); %Lymphocytes 15.6 % (21.0-51.0); %Monocytes 12.8 % (0.0-10.0); %Neutrophils 65.1 % (42.0-75.0); Hematocrit 30.4 % (42.0-52.0); Hemoglobin 9.5 g/dL (14.0-18.0); Mean Corpuscular HGB CONC 31.3 g/dL (32.0-36.0); Mean Corpuscular Volume 92.7 fL (78.0-98.0); Mean Platelet Volume 11.3 fL (7.4-10.4); Platelet Count 168 10x3/uL (130-400); RBC Distribution Width 15.1 % (11.5-14.5); Red Blood Cell (RBC) Count 3.28 mill/uL (4.70-6.10)
[2024-01-22 07:17] LABS: Anion Gap 18 mmol/L (10-20); BUN (Urea Nitrogen) 55 mg/dL (8.4-25.7); Calc. Creatinine Clearance 7 mL/min (70-130); Calcium 9.7 mg/dL (7.8-10.44); Carbon Dioxide 24 mmol/L (23-31); Chloride 95 mmol/L (98-107); Estimated GFR 7; Glucose 43 mg/dL (83-110); Potassium 3.8 mmol/L (3.5-5.1); Sodium 133 mmol/L (136-145)
[2024-01-22] MEDS ORDERED: Heparin 10,000 UNITS/ 10 ML VIAL ONE (11:45)
[2024-01-22 17:22] VITALS: BP 161/71; TEMP 97.4
== END 2024-01-22 18:51 | disposition home health service (06) | DRG 947 ==
LOC: ERS 20:07 → ERHOLD 01-18 00:02 → OBSVTOIN 01-18 14:22 → 2NO 01-18 16:11
PROVIDERS: ADMIT Student in an Organized Health Care Education/Training Program; ATTEND Internal Medicine
DX: R53.1 Weakness (principal); I21.A1 Myocardial infarction type 2; N18.6 End stage renal disease; E87.1 Hypo-osmolality and hyponatremia; I12.0 Hypertensive chronic kidney disease with stage 5 chronic kidney disease or end stage renal disease; D72.829 Elevated white blood cell count, unspecified; D63.1 Anemia in chronic kidney disease; E11.22 Type 2 diabetes mellitus with diabetic chronic kidney disease; I25.10 Atherosclerotic heart disease of native coronary artery without angina pectoris; Z99.2 Dependence on renal dialysis; Z88.8 Allergy status to other drugs, medicaments and biological substances; Z79.82 Long term (current) use of aspirin; Z79.899 Other long term (current) drug therapy; E88.09 Other disorders of plasma-protein metabolism, not elsewhere classified; H40.9 Unspecified glaucoma; N28.89 Other specified disorders of kidney and ureter
CPT/HCPCS: 36415; 36416; 71045; 74170; 80048; 80053; 83605; 83735; 84100; 84443; 84484; 85025; 86141; 86704; 86706; 86803; 87040; 87340; 93005; 93306; 96360; G0378; J0696; J1644; J1815; J3490; Q5105; Q9967

== ENCOUNTER 2024-01-24 19:11 | Inpatient (IN) | payer MEDICARE ==
[2024-01-24 20:40] VITALS: BMI 19.0
[2024-01-24] MEDS ORDERED: Glucagon 1 MG/ML KIT IM PRN (21:12)
[2024-01-24] MEDS ORDERED: Ondansetron PF 4 MG/2 ML Vial IVP PRN (21:12)
[2024-01-24] MEDS ORDERED: Dextrose 5% in Water 1,000 ML IV PRN (21:12)
[2024-01-24] MEDS ORDERED: Morphine 2 MG/ML VIAL SLOW IVP PRN (21:35)
[2024-01-24] MEDS ORDERED: Piperacillin/Tazobactam 3.375 GM in Sodium Chloride 0.9% 100 ML IVPB SCH (22:00)
[2024-01-24] MEDS: Acetaminophen 325 MG TAB PO SCH (22:47)
[2024-01-24] MEDS: Melatonin 3 MG TAB PO PRN (22:47)
[2024-01-24 23:01] LABS: Troponin I 0.149 ng/mL (< 0.028)
[2024-01-25] MEDS: Dextrose 50% Abboject 50 ML SYRINGE SLOW IVP PRN (06:57)
[2024-01-25 07:08] LABS: #Basophils 0.03 10x3/uL (0.0-0.2); %Basophils 0.3 % (0.0-1.0); %Eosinophils 2.1 % (0.0-10.0); %Lymphocytes 13.3 % (21.0-51.0); %Monocytes 8.1 % (0.0-10.0); %Neutrophils 73.7 % (42.0-75.0); Hematocrit 31.1 % (42.0-52.0); Hemoglobin 9.8 g/dL (14.0-18.0); Mean Corpuscular HGB CONC 31.5 g/dL (32.0-36.0); Mean Corpuscular Hemoglobin 29.3 pg (27.0-31.0); Mean Corpuscular Volume 92.8 fL (78.0-98.0); Mean Platelet Volume 10.4 fL (7.4-10.4); Platelet Count 229 10x3/uL (130-400); RBC Distribution Width 15.5 % (11.5-14.5); Red Blood Cell (RBC) Count 3.35 mill/uL (4.70-6.10)
[2024-01-25 07:31] LABS: Troponin I 0.127 ng/mL (< 0.028)
[2024-01-25 07:52] LABS: Critical Call Chemistry 2NO.JP2@0755
[2024-01-25 07:55] LABS: Anion Gap 17 mmol/L (10-20); BUN (Urea Nitrogen) 41 mg/dL (8.4-25.7); Calc. Creatinine Clearance 8 mL/min (70-130); Calcium 9.8 mg/dL (7.8-10.44); Carbon Dioxide 22 mmol/L (23-31); Chloride 100 mmol/L (98-107); Estimated GFR 7; Glucose 27 mg/dL (83-110); Potassium 4.3 mmol/L (3.5-5.1); Sodium 135 mmol/L (136-145)
[2024-01-25] MEDS ORDERED: Clindamycin/D5W 300 MG/50 ML BAG IVPB SCH (12:00)
[2024-01-25] MEDS: Heparin 5,000 UNITS/ML VIAL SC SCH (12:54)
[2024-01-25] MEDS: Carvedilol 6.25 MG TAB PO SCH (12:54)
[2024-01-25] MEDS: Timolol 0.5% Ophth Soln 5 ml Bottle EA EYE SCH (12:54)
[2024-01-25] MEDS: Aspirin 81 mg Enteric Coated Tablet PO SCH (12:54)
[2024-01-25] MEDS: Clopidogrel Bisulfate 75 MG TAB PO SCH (12:54)
[2024-01-25] MEDS: Gabapentin 100 MG CAP PO SCH (12:55)
[2024-01-25] MEDS: EPOETIN ALFA-EPBX (ESRD) 10,000 UNITS/ML VIAL SC SCH (13:30)
[2024-01-25] MEDS: Midodrine HCl 5 MG TAB PO SCH (14:59)
[2024-01-25] MEDS: Atorvastatin Calcium 20 MG TAB PO SCH (21:10)
[2024-01-25] MEDS: Mirtazapine 15 MG TAB PO SCH (21:10)
[2024-01-25] MEDS: Carvedilol 3.125 MG TAB PO SCH (21:10)
[2024-01-26 12:06] VITALS: BMI 19.0
[2024-01-26] MEDS: Calcitriol 0.25 MCG CAP PO SCH (14:19)
[2024-01-26] MEDS: Albumin 25% 25 GM (100 mL) BOT IVPB SCH (14:21)
[2024-01-26] MEDS: Gabapentin 300 MG CAP PO PRN (14:22)
[2024-01-27] MEDS: HYDROcodone/Acetaminophen 10/325 mg Tablet PO PRN (03:25)
[2024-01-27 04:54] LABS: #Basophils 0.03 10x3/uL (0.0-0.2); %Basophils 0.3 % (0.0-1.0); %Eosinophils 2.2 % (0.0-10.0); %Lymphocytes 14.1 % (21.0-51.0); %Monocytes 9.8 % (0.0-10.0); %Neutrophils 71.9 % (42.0-75.0); Hematocrit 28.2 % (42.0-52.0); Hemoglobin 8.9 g/dL (14.0-18.0); Mean Corpuscular HGB CONC 31.6 g/dL (32.0-36.0); Mean Corpuscular Hemoglobin 29.5 pg (27.0-31.0); Mean Corpuscular Volume 93.4 fL (78.0-98.0); Platelet Count 220 10x3/uL (130-400); RBC Distribution Width 15.7 % (11.5-14.5); Red Blood Cell (RBC) Count 3.02 mill/uL (4.70-6.10)
[2024-01-27 05:16] LABS: Anion Gap 17 mmol/L (10-20); BUN (Urea Nitrogen) 15 mg/dL (8.4-25.7); Calc. Creatinine Clearance 15 mL/min (70-130); Calcium 9.8 mg/dL (7.8-10.44); Carbon Dioxide 28 mmol/L (23-31); Chloride 96 mmol/L (98-107); Estimated GFR 15; Glucose 93 mg/dL (83-110); Potassium 3.7 mmol/L (3.5-5.1); Sodium 137 mmol/L (136-145)
[2024-01-27] MEDS: Insulin Lispro 100 UNIT/ML 10 ML VIAL SC PRN (12:16)
[2024-01-27] MEDS: Polyethylene Glycol 3350 17 GM Packet PO SCH (12:16)
[2024-01-27] MEDS: Senokot S 8.6-50 MG TAB PO SCH (21:11)
[2024-01-28 07:46] LABS: #Basophils 0.03 10x3/uL (0.0-0.2); %Basophils 0.2 % (0.0-1.0); %Eosinophils 1.6 % (0.0-10.0); %Lymphocytes 9.8 % (21.0-51.0); %Neutrophils 80.3 % (42.0-75.0); Hematocrit 29.5 % (42.0-52.0); Hemoglobin 9.3 g/dL (14.0-18.0); Mean Corpuscular HGB CONC 31.5 g/dL (32.0-36.0); Mean Corpuscular Hemoglobin 30.1 pg (27.0-31.0); Mean Corpuscular Volume 95.5 fL (78.0-98.0); Mean Platelet Volume 9.8 fL (7.4-10.4); Platelet Count 233 10x3/uL (130-400); RBC Distribution Width 15.6 % (11.5-14.5); Red Blood Cell (RBC) Count 3.09 mill/uL (4.70-6.10)
[2024-01-28] MEDS: Polyethylene Glycol 3350 17 GM Packet PO SCH (08:38)
[2024-01-29 05:13] LABS: Anion Gap 17 mmol/L (10-20); BUN (Urea Nitrogen) 35 mg/dL (8.4-25.7); Calc. Creatinine Clearance 9 mL/min (70-130); Calcium 9.5 mg/dL (7.8-10.44); Carbon Dioxide 24 mmol/L (23-31); Chloride 95 mmol/L (98-107); Estimated GFR 8; Glucose 106 mg/dL (83-110); Potassium 4.2 mmol/L (3.5-5.1); Sodium 132 mmol/L (136-145)
[2024-01-29] MEDS: Midodrine HCl 5 MG TAB PO SCH ×2 (09:59→17:09)
[2024-01-30 04:05] LABS: #Basophils 0.04 10x3/uL (0.0-0.2); %Basophils 0.4 % (0.0-1.0); %Eosinophils 1.9 % (0.0-10.0); %Lymphocytes 10.9 % (21.0-51.0); %Monocytes 13.1 % (0.0-10.0); %Neutrophils 72.6 % (42.0-75.0); Hematocrit 28.9 % (42.0-52.0); Mean Corpuscular HGB CONC 31.1 g/dL (32.0-36.0); Mean Corpuscular Hemoglobin 29.9 pg (27.0-31.0); Mean Platelet Volume 10.2 fL (7.4-10.4); Platelet Count 218 10x3/uL (130-400); Red Blood Cell (RBC) Count 3.01 mill/uL (4.70-6.10)
[2024-01-30 04:23] LABS: Anion Gap 15 mmol/L (10-20); BUN (Urea Nitrogen) 24 mg/dL (8.4-25.7); Calc. Creatinine Clearance 11 mL/min (70-130); Calcium 9.9 mg/dL (7.8-10.44); Carbon Dioxide 27 mmol/L (23-31); Chloride 98 mmol/L (98-107); Estimated GFR 10; Glucose 82 mg/dL (83-110); Phosphorus 4.2 mg/dL (2.3-4.7); Potassium 4.2 mmol/L (3.5-5.1); Sodium 136 mmol/L (136-145)
[2024-01-31 04:42] LABS: #Basophils 0.03 10x3/uL (0.0-0.2); %Basophils 0.3 % (0.0-1.0); %Lymphocytes 14.3 % (21.0-51.0); %Monocytes 12.8 % (0.0-10.0); Hematocrit 28.7 % (42.0-52.0); Mean Corpuscular HGB CONC 31.4 g/dL (32.0-36.0); Mean Corpuscular Hemoglobin 29.4 pg (27.0-31.0); Mean Corpuscular Volume 93.8 fL (78.0-98.0); Mean Platelet Volume 10.4 fL (7.4-10.4); Platelet Count 234 10x3/uL (130-400); RBC Distribution Width 16.1 % (11.5-14.5); Red Blood Cell (RBC) Count 3.06 mill/uL (4.70-6.10)
[2024-01-31 04:55] LABS: Anion Gap 19 mmol/L (10-20); BUN (Urea Nitrogen) 33 mg/dL (8.4-25.7); Calc. Creatinine Clearance 9 mL/min (70-130); Calcium 9.9 mg/dL (7.8-10.44); Carbon Dioxide 27 mmol/L (23-31); Chloride 97 mmol/L (98-107); Estimated GFR 8; Glucose 93 mg/dL (83-110); Potassium 4.5 mmol/L (3.5-5.1); Sodium 138 mmol/L (136-145)
[2024-01-31] MEDS ORDERED: Heparin 10,000 UNITS/ 10 ML VIAL ONE (07:07)
[2024-02-02 04:18] LABS: #Basophils Less than 0.03 10x3/uL (0.0-0.2); %Basophils 0.3 % (0.0-1.0); %Eosinophils 2.2 % (0.0-10.0); %Lymphocytes 15.8 % (21.0-51.0); %Monocytes 10.9 % (0.0-10.0); %Neutrophils 70.2 % (42.0-75.0); Hematocrit 26.3 % (42.0-52.0); Hemoglobin 8.1 g/dL (14.0-18.0); Mean Corpuscular HGB CONC 30.8 g/dL (32.0-36.0); Mean Corpuscular Hemoglobin 29.7 pg (27.0-31.0); Mean Corpuscular Volume 96.3 fL (78.0-98.0); Mean Platelet Volume 10.2 fL (7.4-10.4); Platelet Count 198 10x3/uL (130-400); RBC Distribution Width 15.9 % (11.5-14.5); Red Blood Cell (RBC) Count 2.73 mill/uL (4.70-6.10)
[2024-02-02 04:44] LABS: Anion Gap 17 mmol/L (10-20); BUN (Urea Nitrogen) 28 mg/dL (8.4-25.7); Calc. Creatinine Clearance 10 mL/min (70-130); Calcium 9.5 mg/dL (7.8-10.44); Carbon Dioxide 28 mmol/L (23-31); Chloride 95 mmol/L (98-107); Estimated GFR 10; Glucose 164 mg/dL (83-110); Potassium 4.1 mmol/L (3.5-5.1); Sodium 136 mmol/L (136-145)
[2024-02-02] MEDS: EPOETIN ALFA-EPBX (ESRD) 10,000 UNITS/ML VIAL SC SCH (14:59)
[2024-02-02] MEDS: Calcitriol 0.25 MCG CAP PO SCH ×2 (16:16→19:06)
[2024-02-02] MEDS: Insulin Glargine 30 UNITS/0.3 ML VIAL SC SCH (22:04)
[2024-02-03 04:50] LABS: Anion Gap 12 mmol/L (10-20); BUN (Urea Nitrogen) 14 mg/dL (8.4-25.7); Calc. Creatinine Clearance 16 mL/min (70-130); Carbon Dioxide 30 mmol/L (23-31); Chloride 97 mmol/L (98-107); Estimated GFR 16; Glucose 84 mg/dL (83-110); Potassium 3.5 mmol/L (3.5-5.1); Sodium 135 mmol/L (136-145)
[2024-02-03 04:56] LABS: #Basophils Less than 0.03 10x3/uL (0.0-0.2); %Basophils 0.3 % (0.0-1.0); %Lymphocytes 16.1 % (21.0-51.0); %Monocytes 10.2 % (0.0-10.0); %Neutrophils 69.7 % (42.0-75.0); Hematocrit 28.6 % (42.0-52.0); Hemoglobin 8.8 g/dL (14.0-18.0); Mean Corpuscular HGB CONC 30.8 g/dL (32.0-36.0); Mean Corpuscular Hemoglobin 29.7 pg (27.0-31.0); Mean Corpuscular Volume 96.6 fL (78.0-98.0); Mean Platelet Volume 10.5 fL (7.4-10.4); Platelet Count 219 10x3/uL (130-400); RBC Distribution Width 15.9 % (11.5-14.5); Red Blood Cell (RBC) Count 2.96 mill/uL (4.70-6.10)
[2024-02-03 05:31] LABS: Hemoglobin A1c 5.4 % (4.0-6.0)
[2024-02-03 09:09] VITALS: BP 134/64; TEMP 97.9
== END 2024-02-03 10:31 | DRG 154 ==
LOC: 2NO 20:17
PROVIDERS: ADMIT Hospitalist; ATTEND Internal Medicine
PROC: 30233J1 Transfusion of Nonautologous Serum Albumin into Peripheral Vein, Percutaneous Approach (ICD-10-PCS; principal; 2024-01-26)
DX: J39.2 Other diseases of pharynx (principal); N18.6 End stage renal disease; N25.81 Secondary hyperparathyroidism of renal origin; I13.2 Hypertensive heart and chronic kidney disease with heart failure and with stage 5 chronic kidney disease, or end stage renal disease; J39.0 Retropharyngeal and parapharyngeal abscess; I12.0 Hypertensive chronic kidney disease with stage 5 chronic kidney disease or end stage renal disease; J38.7 Other diseases of larynx; Z99.2 Dependence on renal dialysis; Z88.5 Allergy status to narcotic agent; Z79.82 Long term (current) use of aspirin; Z79.899 Other long term (current) drug therapy; E11.22 Type 2 diabetes mellitus with diabetic chronic kidney disease; E78.5 Hyperlipidemia, unspecified; Z89.511 Acquired absence of right leg below knee; Z95.810 Presence of automatic (implantable) cardiac defibrillator; Z89.612 Acquired absence of left leg above knee; D63.1 Anemia in chronic kidney disease; I65.23 Occlusion and stenosis of bilateral carotid arteries; I25.10 Atherosclerotic heart disease of native coronary artery without angina pectoris; I25.2 Old myocardial infarction; I50.9 Heart failure, unspecified; N40.0 Benign prostatic hyperplasia without lower urinary tract symptoms; Z79.4 Long term (current) use of insulin; Z79.02 Long term (current) use of antithrombotics/antiplatelets
CPT/HCPCS: 36415; 36416; 70491; 71045; 80048; 80053; 83036; 83605; 83690; 83970; 84100; 84484; 85025; 87040; 90935; 93005; 96365; 97139; G0257; J1644; J1815; J2543; J7999; P9047; Q5105; Q9967

== ENCOUNTER 2024-05-15 10:20 | Day surgery (SDC) | payer MEDICARE ==
[2024-05-14 12:36] VITALS: BMI 18.7
[2024-05-15] MEDS ORDERED: Bupivacaine PF 0.5% 30 ML VIAL ONE (11:37)
[2024-05-15] MEDS ORDERED: Ondansetron PF 4 MG/2 ML Vial ONE (11:38)
[2024-05-15] MEDS ORDERED: Lidocaine 1% PF 5 ML VIAL ONE (11:38)
[2024-05-15] MEDS ORDERED: PROPOFOL 20 ML ONE (11:38)
[2024-05-15] MEDS ORDERED: Lidocaine 1% (PF) 30 ML VIAL ONE (11:40)
[2024-05-15] MEDS ORDERED: EPINEPHrine 1 MG/ML VIAL ONE (11:40)
[2024-05-15] MEDS ORDERED: Bupivacaine 0.25% HCL 30 ML VIAL ONE (11:40)
[2024-05-15] MEDS ORDERED: CEFAZOLIN 2 GM VIAL ONE (11:56)
[2024-05-15 12:33] LABS: ALT (SGPT) 9 U/L (8-55); AST (SGOT) 14 U/L (5-34); Albumin 2.1 g/dL (3.4-4.8); Alkaline Phosphatase 189 U/L (40-110); Anion Gap 25 mmol/L (10-20); BUN (Urea Nitrogen) 26 mg/dL (8.4-25.7); Bilirubin, Total 0.4 mg/dL (0.2-1.2); Calc. Creatinine Clearance 10 mL/min (70-130); Calcium 11.4 mg/dL (7.8-10.44); Carbon Dioxide 27 mmol/L (23-31); Chloride 96 mmol/L (98-107); Estimated GFR 9; Globulin 5.3 g/dL (2.4-3.5); Glucose 89 mg/dL (83-110); Potassium 3.6 mmol/L (3.5-5.1); Protein, Total 7.4 g/dL (5.8-8.1); Sodium 144 mmol/L (136-145)
[2024-05-15] MEDS ORDERED: fentaNYL 50 mcg/mL 1 mL Vial ONE (14:22)
[2024-05-15] MEDS ORDERED: Gabapentin 300 MG CAP ONE (19:43)
[2024-05-15] MEDS ORDERED: Melatonin 3 MG TAB PO PRN (19:44)
[2024-05-15] MEDS ORDERED: Timolol 0.5% Ophth Soln 5 ml Bottle EA EYE SCH (21:00)
[2024-05-15] MEDS ORDERED: Gabapentin 100 MG CAP PO SCH (21:00)
[2024-05-15] MEDS ORDERED: Atorvastatin Calcium 20 MG TAB PO SCH (21:00)
[2024-05-15] MEDS ORDERED: Carvedilol 3.125 MG TAB PO SCH (21:00)
[2024-05-15] MEDS ORDERED: Mirtazapine 15 MG TAB PO SCH (21:00)
[2024-05-16] MEDS ORDERED: Aspirin 81 mg Enteric Coated Tablet PO SCH (09:00)
[2024-05-16] MEDS ORDERED: Insulin Glargine 30 UNITS/0.3 ML VIAL SC SCH (09:00)
[2024-05-16] MEDS ORDERED: Clopidogrel Bisulfate 75 MG TAB PO SCH (09:00)
== END 2024-05-15 20:10 ==
LOC: SDC 10:20
PROVIDERS: ATTEND Surgery Surgery of the Hand
PROC: 0X6Q0Z3 Detachment at Right Middle Finger, Low, Open Approach (ICD-10-PCS; principal; 2024-05-15)
DX: M87.044 Idiopathic aseptic necrosis of right finger(s) (principal); M86.8X4 Other osteomyelitis, hand; I73.9 Peripheral vascular disease, unspecified; I25.10 Atherosclerotic heart disease of native coronary artery without angina pectoris; I13.2 Hypertensive heart and chronic kidney disease with heart failure and with stage 5 chronic kidney disease, or end stage renal disease; I50.9 Heart failure, unspecified; N18.6 End stage renal disease; E11.22 Type 2 diabetes mellitus with diabetic chronic kidney disease; E78.5 Hyperlipidemia, unspecified; N40.0 Benign prostatic hyperplasia without lower urinary tract symptoms; Z99.2 Dependence on renal dialysis; Z89.612 Acquired absence of left leg above knee; Z89.511 Acquired absence of right leg below knee; Z95.810 Presence of automatic (implantable) cardiac defibrillator; Z88.5 Allergy status to narcotic agent; Z79.02 Long term (current) use of antithrombotics/antiplatelets; Z79.82 Long term (current) use of aspirin; Z79.899 Other long term (current) drug therapy
CPT/HCPCS: 26910; 71045; 80053; 93005; J0665; J2405; J2704; J3010; 88305; 88311; 93010; J0171

== ENCOUNTER 2024-05-21 16:20 | Inpatient (IN) | payer MEDICARE ==
[2024-05-21 17:06] LABS: Actual Bicarbonate (HCO3v) 27.5 mEq/L (22-28); Analyzer IN Cardio ER; Base Excess 2.2 mEq/L (-2.0 to +3.0); Calcium, Ionized (venous) 1.25 mmol/L (1.16-1.32); Chloride (VBG) 94 mmol/L (98-106); Hematocrit-VBG 30 % (42.0-52.0); Hemoglobin (Hb) 10.3 g/dL (12.6-17.4); Sodium 133 mmol/L (133-146); pH (venous) 7.396 (7.32-7.43)
[2024-05-21 17:23] LABS: ALT (SGPT) Less than 5 U/L (8-55); AST (SGOT) 67 U/L (5-34); Albumin 1.8 g/dL (3.4-4.8); Alkaline Phosphatase 173 U/L (40-110); Anion Gap 19 mmol/L (10-20); BUN (Urea Nitrogen) 38 mg/dL (8.4-25.7); Bilirubin, Total 0.5 mg/dL (0.2-1.2); Calc. Creatinine Clearance 0 mL/min (70-130); Carbon Dioxide 24 mmol/L (23-31); Chloride 94 mmol/L (98-107); Estimated GFR 10; Globulin 5.3 g/dL (2.4-3.5); Glucose 164 mg/dL (83-110); Potassium 4.3 mmol/L (3.5-5.1); Protein, Total 7.1 g/dL (5.8-8.1); Sodium 133 mmol/L (136-145)
[2024-05-21 17:27] LABS: INR-International Normal Ratio 1.5; Prothrombin Time 18.4 sec (12.0-14.7)
[2024-05-21 17:28] LABS: PTT 53.2 sec (22.9-36.1)
[2024-05-21 17:35] LABS: Troponin I 0.906 ng/mL (< 0.028)
[2024-05-21] MEDS ORDERED: Aspirin Chewable 81 MG TAB ONE (17:54)
[2024-05-21] MEDS ORDERED: Aspirin 300 MG Suppository ONE (18:12)
[2024-05-21 18:47] LABS: #Basophils Less than 0.03 10x3/uL (0.0-0.2); %Basophils 0.1 % (0.0-1.0); %Eosinophils 0.3 % (0.0-10.0); %Lymphocytes 6.7 % (21.0-51.0); %Monocytes 9.2 % (0.0-10.0); %Neutrophils 83.2 % (42.0-75.0); Hematocrit 26.9 % (42.0-52.0); Hemoglobin 8.5 g/dL (14.0-18.0); Mean Corpuscular HGB CONC 31.6 g/dL (32.0-36.0); Mean Corpuscular Hemoglobin 29.4 pg (27.0-31.0); Mean Corpuscular Volume 93.1 fL (78.0-98.0); Mean Platelet Volume 10.7 fL (7.4-10.4); Platelet Count 153 10x3/uL (130-400); RBC Distribution Width 15.8 % (11.5-14.5); Red Blood Cell (RBC) Count 2.89 mill/uL (4.70-6.10)
[2024-05-21] MEDS ORDERED: Cefepime 2 GM VIAL ONE (19:02)
[2024-05-21] MEDS ORDERED: Sodium Chloride 0.9% 100 ML ONE (19:02)
[2024-05-21] MEDS ORDERED: Ondansetron ODT 4 MG TAB SL PRN (19:13)
[2024-05-21] MEDS ORDERED: Ondansetron PF 4 MG/2 ML Vial IVP PRN ×2 (19:13→20:10)
[2024-05-21] MEDS ORDERED: Acetaminophen 325 MG TAB PO PRN (19:13)
[2024-05-21] MEDS ORDERED: Gabapentin 300 MG CAP PO PRN (20:00)
[2024-05-21] MEDS ORDERED: Dextrose 50% Abboject 50 ML SYRINGE SLOW IVP PRN (20:03)
[2024-05-21] MEDS ORDERED: Glucagon 1 MG/ML KIT IM PRN (20:03)
[2024-05-21] MEDS ORDERED: Dextrose 5% in Water 1,000 ML IV PRN (20:03)
[2024-05-21] MEDS ORDERED: Insulin Lispro 100 UNIT/ML 10 ML VIAL SC PRN ×2 (20:10)
[2024-05-21 20:32] LABS: Lactic Acid 1.87 mmol/L (0.5-2.2)
[2024-05-21] MEDS ORDERED: Melatonin 3 MG TAB PO PRN (20:39)
[2024-05-21] MEDS ORDERED: Vancomycin 1 GM in Premix 1 BAG IVPB SCH (21:00)
[2024-05-21] MEDS ORDERED: Gabapentin 100 MG CAP PO SCH (21:00)
[2024-05-21 21:21] LABS: Troponin I 0.967 ng/mL (< 0.028)
[2024-05-21] MEDS: VANCOMYCIN 1.25 GM/250 ML BAG 1.25 GM in Premix 1 BAG IVPB SCH (22:00)
[2024-05-21] MEDS ORDERED: Vancomycin Hemodialysis Sliding Scale FS SCH (23:00)
[2024-05-22 00:04] LABS: Troponin I 0.992 ng/mL (< 0.028)
[2024-05-22] MEDS: Atorvastatin Calcium 20 MG TAB PO SCH (00:50)
[2024-05-22] MEDS: Mirtazapine 15 MG TAB PO SCH (00:50)
[2024-05-22] MEDS: Carvedilol 3.125 MG TAB PO SCH (00:50)
[2024-05-22] MEDS: Heparin 5,000 UNITS/ML VIAL SC SCH (00:50)
[2024-05-22 04:52] LABS: #Basophils 0.03 10x3/uL (0.0-0.2); %Basophils 0.2 % (0.0-1.0); %Lymphocytes 6.6 % (21.0-51.0); %Monocytes 8.4 % (0.0-10.0); %Neutrophils 83.3 % (42.0-75.0); Hematocrit 28.2 % (42.0-52.0); Hemoglobin 8.8 g/dL (14.0-18.0); Mean Corpuscular HGB CONC 31.2 g/dL (32.0-36.0); Mean Corpuscular Hemoglobin 29.3 pg (27.0-31.0); Mean Platelet Volume 10.8 fL (7.4-10.4); Platelet Count 153 10x3/uL (130-400); RBC Distribution Width 15.5 % (11.5-14.5)
[2024-05-22 04:56] LABS: Anion Gap 16 mmol/L (10-20); BUN (Urea Nitrogen) 42 mg/dL (8.4-25.7); Calc. Creatinine Clearance 9 mL/min (70-130); Calcium 9.9 mg/dL (7.8-10.44); Carbon Dioxide 26 mmol/L (23-31); Chloride 94 mmol/L (98-107); Estimated GFR 9; Glucose 122 mg/dL (83-110); Potassium 3.8 mmol/L (3.5-5.1); Sodium 132 mmol/L (136-145)
[2024-05-22 07:14] LABS: Vancomycin, Trough 20.8 ug/mL
[2024-05-22] MEDS ORDERED: Epoetin (ESRD) 20,000 UNITS/ML MDV SC SCH (07:30)
[2024-05-22] MEDS: Albumin 25% 25 GM (100 mL) BOT IVPB PRN (09:55)
[2024-05-22] MEDS: Acetaminophen 325 MG TAB PO PRN (09:55)
[2024-05-22 12:56] VITALS: BMI 17.4
[2024-05-22] MEDS: Cinacalcet HCl 30 MG TAB PO SCH (13:19)
[2024-05-22] MEDS: EPOETIN ALFA-EPBX (ESRD) 10,000 UNITS/ML VIAL SC SCH (13:21)
[2024-05-22] MEDS: Clopidogrel Bisulfate 75 MG TAB PO SCH (13:23)
[2024-05-22] MEDS: Aspirin 81 mg Enteric Coated Tablet PO SCH (13:23)
[2024-05-22] MEDS: Timolol 0.5% Ophth Soln 5 ml Bottle EA EYE SCH (16:28)
[2024-05-22] MEDS: Vancomycin HCl 250 MG in Sodium Chloride 0.9% 100 ML IVPB SCH (16:33)
[2024-05-22] MEDS: Cefepime 1 GM in Sodium Chloride 0.9% 100 ML IVPB SCH (16:34)
[2024-05-22] MEDS ORDERED: Cefepime 1 GM in Sodium Chloride 0.9% 100 ML IVPB SCH (19:00)
[2024-05-23 04:56] LABS: #Basophils Less than 0.03 10x3/uL (0.0-0.2); %Basophils 0.1 % (0.0-1.0); %Eosinophils 0.6 % (0.0-10.0); %Lymphocytes 6.7 % (21.0-51.0); %Monocytes 8.6 % (0.0-10.0); %Neutrophils 83.7 % (42.0-75.0); Hematocrit 26.9 % (42.0-52.0); Hemoglobin 8.7 g/dL (14.0-18.0); Mean Corpuscular HGB CONC 32.3 g/dL (32.0-36.0); Mean Corpuscular Hemoglobin 29.3 pg (27.0-31.0); Mean Corpuscular Volume 90.6 fL (78.0-98.0); Mean Platelet Volume 10.7 fL (7.4-10.4); Platelet Count 158 10x3/uL (130-400); RBC Distribution Width 15.9 % (11.5-14.5); Red Blood Cell (RBC) Count 2.97 mill/uL (4.70-6.10)
[2024-05-23 05:17] LABS: Anion Gap 17 mmol/L (10-20); BUN (Urea Nitrogen) 29 mg/dL (8.4-25.7); Calc. Creatinine Clearance 12 mL/min (70-130); Calcium 9.5 mg/dL (7.8-10.44); Carbon Dioxide 25 mmol/L (23-31); Chloride 97 mmol/L (98-107); Estimated GFR 13; Glucose 152 mg/dL (83-110); Potassium 3.7 mmol/L (3.5-5.1); Sodium 135 mmol/L (136-145)
[2024-05-23] MEDS ORDERED: HYDROcodone/Acetaminophen 5/325 mg Tablet PO PRN (09:29)
[2024-05-23] MEDS ORDERED: Lidocaine 4% Topical Sol 50 ML BOT TOP PRN (18:05)
[2024-05-24 00:09] VITALS: TEMP 97.7
[2024-05-24] MEDS ORDERED: Sodium Chloride 0.9% 500 ML IV SCH (04:45)
[2024-05-24] MEDS: Midodrine HCl 5 MG TAB PO SCH (05:39)
[2024-05-24 06:28] VITALS: BP 139/77
[2024-05-24 06:30] LABS: #Basophils Less than 0.03 10x3/uL (0.0-0.2); #Eosinophils Less than 0.03 10x3/uL (0.0-0.7); %Basophils 0.1 % (0.0-1.0); %Eosinophils 0.1 % (0.0-10.0); %Lymphocytes 8.4 % (21.0-51.0); %Monocytes 10.5 % (0.0-10.0); %Neutrophils 79.4 % (42.0-75.0); Hematocrit 31.1 % (42.0-52.0); Hemoglobin 9.2 g/dL (14.0-18.0); Mean Corpuscular HGB CONC 29.6 g/dL (32.0-36.0); Mean Corpuscular Hemoglobin 29.4 pg (27.0-31.0); Mean Corpuscular Volume 99.4 fL (78.0-98.0); Mean Platelet Volume 10.2 fL (7.4-10.4); Platelet Count 149 10x3/uL (130-400); RBC Distribution Width 16.4 % (11.5-14.5); Red Blood Cell (RBC) Count 3.13 mill/uL (4.70-6.10)
[2024-05-24] MEDS ORDERED: Phenylephrine 40 MG/NS 250 ML 40 MG in Premix 1 BAG IVPB SCH (06:45)
[2024-05-24] MEDS ORDERED: Calcium Chloride 1 GM/10 ML Abboject SYRINGE ONE (06:47)
[2024-05-24] MEDS ORDERED: Amiodarone 150 MG/3 ML VIAL ONE (06:47)
[2024-05-24] MEDS ORDERED: Etomidate 40 MG (20 mL) VIAL ONE (06:47)
[2024-05-24] MEDS ORDERED: Sodium Bicarb 50 MEQ/50 ML Abboject 8.4% SYRINGE ONE (06:47)
[2024-05-24] MEDS ORDERED: EPINEPHrine 1 MG/10 ML Abboject SYRINGE ONE (06:47)
[2024-05-24 06:58] LABS: ALT (SGPT) Less than 5 U/L (8-55); AST (SGOT) 51 U/L (5-34); Albumin 1.8 g/dL (3.4-4.8); Alkaline Phosphatase 302 U/L (40-110); Anion Gap 26 mmol/L (10-20); BUN (Urea Nitrogen) 39 mg/dL (8.4-25.7); Bilirubin, Total 0.9 mg/dL (0.2-1.2); Calc. Creatinine Clearance 10 mL/min (70-130); Calcium 8.9 mg/dL (7.8-10.44); Carbon Dioxide 12 mmol/L (23-31); Chloride 100 mmol/L (98-107); Estimated GFR 11; Globulin 4.9 g/dL (2.4-3.5); Glucose 120 mg/dL (83-110); Magnesium 2.2 mg/dL (1.6-2.6); Potassium 4.4 mmol/L (3.5-5.1); Protein, Total 6.7 g/dL (5.8-8.1); Sodium 134 mmol/L (136-145)
[2024-05-24] MEDS: EPINEPHrine 1 MG/ML VIAL IJ SCH (08:28)
[2024-05-24] MEDS: EPINEPHrine 1 MG/ML VIAL ONE (08:28)
[2024-05-24] MEDS: Sodium Chloride 0.9% 500 ML IV SCH (08:28)
[2024-05-24] MEDS: EPINEPHrine 1 MG/10 ML Abboject SYRINGE ONE (08:29)
== END 2024-05-24 10:20 | disposition expired | DRG 570 ==
LOC: ERS 16:20 → 2NO 19:16 → OBSVTOIN 05-22 13:41 → CCU 05-24 05:47
PROVIDERS: ADMIT Family Medicine; ATTEND Family Medicine
PROC: 3E03329 Introduction of Other Anti-infective into Peripheral Vein, Percutaneous Approach (ICD-10-PCS; 2024-05-21)
PROC: 5A1D70Z Performance of Urinary Filtration, Intermittent, Less than 6 Hours Per Day (ICD-10-PCS; 2024-05-22)
PROC: 30233J1 Transfusion of Nonautologous Serum Albumin into Peripheral Vein, Percutaneous Approach (ICD-10-PCS; 2024-05-22)
PROC: 0JB70ZZ Excision of Back Subcutaneous Tissue and Fascia, Open Approach (ICD-10-PCS; principal; 2024-05-23)
PROC: 0BH17EZ Insertion of Endotracheal Airway into Trachea, Via Natural or Artificial Opening (ICD-10-PCS; 2024-05-24)
PROC: 06HY33Z Insertion of Infusion Device into Lower Vein, Percutaneous Approach (ICD-10-PCS; 2024-05-24)
PROC: 5A12012 Performance of Cardiac Output, Single, Manual (ICD-10-PCS; 2024-05-24)
PROC: 5A2204Z Restoration of Cardiac Rhythm, Single (ICD-10-PCS; 2024-05-24)
PROC: 3E033XZ Introduction of Vasopressor into Peripheral Vein, Percutaneous Approach (ICD-10-PCS; 2024-05-24)
DX: L89.120 Pressure ulcer of left upper back, unstageable (principal); G92.8 Other toxic encephalopathy; J96.01 Acute respiratory failure with hypoxia; N18.6 End stage renal disease; I12.0 Hypertensive chronic kidney disease with stage 5 chronic kidney disease or end stage renal disease; I5A Non-ischemic myocardial injury (non-traumatic); R65.10 Systemic inflammatory response syndrome (SIRS) of non-infectious origin without acute organ dysfunction; I67.82 Cerebral ischemia; J90 Pleural effusion, not elsewhere classified; N25.81 Secondary hyperparathyroidism of renal origin; L89.153 Pressure ulcer of sacral region, stage 3; E11.51 Type 2 diabetes mellitus with diabetic peripheral angiopathy without gangrene; Z51.5 Encounter for palliative care; E11.22 Type 2 diabetes mellitus with diabetic chronic kidney disease; K21.9 Gastro-esophageal reflux disease without esophagitis; E78.5 Hyperlipidemia, unspecified; L89.322 Pressure ulcer of left buttock, stage 2; E83.52 Hypercalcemia; R57.0 Cardiogenic shock; F41.9 Anxiety disorder, unspecified; I25.10 Atherosclerotic heart disease of native coronary artery without angina pectoris; Z89.021 Acquired absence of right finger(s); Z88.5 Allergy status to narcotic agent; Z89.511 Acquired absence of right leg below knee; Z89.612 Acquired absence of left leg above knee; Z99.2 Dependence on renal dialysis; Z90.49 Acquired absence of other specified parts of digestive tract; Z98.890 Other specified postprocedural states; Z98.1 Arthrodesis status; Z87.891 Personal history of nicotine dependence; Z79.82 Long term (current) use of aspirin; Z79.899 Other long term (current) drug therapy; I25.2 Old myocardial infarction; Z95.810 Presence of automatic (implantable) cardiac defibrillator; Z79.4 Long term (current) use of insulin; T40.425A Adverse effect of tramadol, initial encounter; Z95.1 Presence of aortocoronary bypass graft; I49.01 Ventricular fibrillation; I46.9 Cardiac arrest, cause unspecified; L89.890 Pressure ulcer of other site, unstageable; D64.9 Anemia, unspecified; Z95.9 Presence of cardiac and vascular implant and graft, unspecified; Z95.0 Presence of cardiac pacemaker
CPT/HCPCS: 36415; 36416; 70450; 71045; 80048; 80053; 80202; 82805; 83605; 83735; 83880; 83970; 84484; 85025; 85610; 85730; 86850; 86900; 86901; 87040; 93005; 93010; 93923; 94002; 94760; 96365; 96372; 96375; 96376; 97139; G0378; J0171; J0282; J0692; J1644; J3370; J7030; P9047; Q5105